=== PATIENT | male | born 1975 | race Two or more races ===

== ENCOUNTER 2021-07-05 10:17 | Outpatient (REF) | payer OTHER, SELFPAY ==
--- NOTE | ~2021-07-05 | XR_ITS ---
EXAMINATION: XR ABDOMEN KUB CLINICAL INDICATION: Unspecified abdominal pain. COMPARISON: CT scan of the abdomen and pelvis dated 03/19/2015. TECHNIQUE: AP view of the abdomen. FINDINGS: There is a nonobstructive bowel gas pattern. Mild gas and stool are seen within the colon distally to the rectum. No abnormal calcifications are seen. Surgical clips overlie the right upper quadrant. The osseous structures are unremarkable. XR/XR KUB IMPRESSION: Nonobstructive bowel gas pattern. Mild colonic stool burden.
--- NOTE | ~2021-07-05 | XR_ITS ---
EXAMINATION: XR CHEST CLINICAL INFORMATION: Cough. COMPARISON: None TECHNIQUE: 2 views of the chest were obtained. FINDINGS: No significant abnormality is noted involving the heart, lungs, mediastinum, bony thorax or soft tissues. XR/XR chest 2V IMPRESSION: No acute cardiopulmonary process.
[2021-07-05 11:15] LABS: Hematocrit 43.1 % (42.0-52.0); Hemoglobin 14.7 g/dl (14.0-18.0); Mean Corpuscular HGB Conc 34.1 g/dl (31.0-36.0); Mean Corpuscular Hemoglobin 29.3 pg (27.0-33.0); Mean Platelet Volume 10.8 fL (9.4-12.4); Platelet Count 227 X10*3/uL (160-400); Red Blood Count 5.01 X10*6/uL (4.60-5.80); Red Cell Distribution Width 12.6 % (11.0-16.0); White Blood Count 5.8 X10*3/uL (4.8-10.8)
[2021-07-05 11:50] LABS: Anion Gap 10 (12-20); Blood Urea Nitrogen 15 mg/dL (9-16); Calcium 9.7 mg/dL (8.4-10.2); Carbon Dioxide 30 mmol/L (22-29); Chloride 103 mmol/L (96-108); Estimated Glomerular Filt Rate > 60; Glucose Random 196 mg/dL (60-115); Potassium 4.2 mmol/L (3.3-5.1); Sodium 139 mmol/L (135-145)
[2021-07-05 13:08] LABS: Appearance Urine CLEAR; Color Urine YELLOW; Glucose Urine UA NEG (NEG); Leukocyte Esterase Urine NEG (NEG); Nitrite Urine NEG (NEG); Urine Blood NEG (NEG); Urine Ketones NEG (NEG); Urine Protein NEG (NEG-TRACE)
== END 2021-07-05 10:18 | disposition home or self-care (01) ==
LOC: HO.HMGCX 10:17
PROVIDERS: PCP Internal Medicine; Visit Provider Physician Assistant
DX: R10.9 Unspecified abdominal pain (principal); R05.9 Cough, unspecified; M79.10 Myalgia, unspecified site; R30.0 Dysuria
CPT/HCPCS: 36415; 71046; 74018; 80048; 81003; 82550; 85027

== ENCOUNTER 2022-03-03 04:37 | Emergency (ER) | payer OTHER, SELFPAY ==
--- NOTE | 2022-03-03 | ECG_ITS ---
Test Reason : chest /back pain Blood Pressure : / mmHG Vent. Rate : 064 BPM Atrial Rate : 064 BPM P-R Int : 162 ms QRS Dur : 078 ms QT Int : 410 ms P-R-T Axes : 040 035 217 degrees QTc Int : 422 ms Normal sinus rhythm ST & Marked T wave abnormality, consider anterolateral ischemia Abnormal ECG When compared with ECG of 27-FEB-2011 13:30, Vent. rate has decreased BY [address] now depressed in Anterior leads T wave inversion now evident in Inferior leads T wave inversion now evident in Anterolateral leads Referred By: Generic ED Physician Electronically Signed By:ORSEANNE SUN
--- NOTE | ~2022-03-03 | CT_ITS ---
EXAMINATION: CT ABDOMEN AND PELVIS WITH CONTRAST CLINICAL INFORMATION: Left flank pain COMPARISON: 03/19/2015 TECHNIQUE: Multidetector volumetric images were obtained from the superior aspect of the liver through the pubic symphysis following administration 85 mL of Omnipaque 350 intravenous contrast. Sagittal and coronal reformatted images were obtained on the technologist's workstation. Oral contrast: No This CT examination was performed using dose optimization techniques as appropriate, variously including the following: *Automated exposure control *Adjustment of mA and/or kV according to patient size (this includes techniques or standardized protocols for targeted exams where dose is matched to indication/reason for exam; i.e. extremities or head) *Use of iterative reconstruction technique DLP: 756 mGy-cm FINDINGS: LUNG BASES: The visualized lung bases are unremarkable. LIVER, GALLBLADDER, AND BILIARY TREE: The liver is normal in size, shape, and attenuation. No focal hepatic lesion or biliary ductal dilatation is present. Cholecystectomy. PANCREAS: Unremarkable. SPLEEN: Unremarkable. ADRENAL GLANDS: Unremarkable. KIDNEYS AND URETERS: The kidneys are normal in size, shape, and attenuation. No hydronephrosis, hydroureter, or calculi seen. No perinephric stranding. BLADDER: Unremarkable. GASTROINTESTINAL TRACT: The stomach is unremarkable. Normal caliber of the small bowel. No obstruction. Normal appendix. No colonic wall thickening or acute inflammation. Scattered diverticulosis without diverticulitis. No free air or free fluid. ABDOMINAL WALL: No significant hernia is appreciated. LYMPH NODES: Normal. VASCULAR: Unremarkable. PELVIC VISCERA: The prostate and seminal vesicles are unremarkable. OSSEOUS STRUCTURES: No acute or suspicious osseous abnormality. CT/CT abdomen pelvis w IV con IMPRESSION: No acute findings in the abdomen or pelvis. No hydronephrosis or nephrolithiasis. No inflammatory changes. Fleischner guidelines were followed.
--- NOTE | ~2022-03-03 | XR_ITS ---
EXAMINATION: XR CHEST CLINICAL INFORMATION: Chest pain COMPARISON: 07/05/2021 TECHNIQUE: Frontal view of the chest was obtained. FINDINGS: The lungs are well expanded. There is no focal consolidation, edema, or effusion. No pneumothorax. The cardiomediastinal silhouette is within normal limits. No acute osseous abnormality. XR/XR chest 1V IMPRESSION: Clear lungs.
[2022-03-03 04:50] VITALS: BP 133/79; PULSE 58; RESP 16; TEMP 36.3; O2SAT 97; BMI 33.8
[2022-03-03 05:13] LABS: Basophils Absolute Auto 0.1 X10*3/uL (0.0-0.2); Basophils Percent Auto 1.1 % (0-2); Eosinophils Absolute Auto 0.2 X10*3/uL (0.0-0.4); Eosinophils Percent Auto 2.3 % (0-4); Hematocrit 44.9 % (42.0-52.0); Hemoglobin 15.3 g/dl (14.0-18.0); Imm Gran Abs Auto 0.02 X10*3/uL (0.00-0.03); Imm Gran Pct Auto 0.3 % (0.0-0.4); Lymphocytes Absolute Auto 3.1 X10*3/uL (1.2-4.9); Lymphocytes Percent Auto 38.6 % (20-40); MANUAL DIFF FLAG NO; Mean Corpuscular HGB Conc 34.1 g/dl (31.0-36.0); Mean Corpuscular Hemoglobin 29.1 pg (27.0-33.0); Mean Corpuscular Volume 85.4 fL (80.0-98.0); Mean Platelet Volume 10.1 fL (9.4-12.4); Monocytes Absolute Auto 0.6 X10*3/uL (0.1-1.2); Monocytes Percent Auto 7.6 % (2-11); Neutrophils Percent Auto 50.1 % (45-73); Platelet Count 225 X10*3/uL (160-400); Red Blood Count 5.26 X10*6/uL (4.60-5.80); Red Cell Distribution Width 12.5 % (11.0-16.0); White Blood Count 7.9 X10*3/uL (4.8-10.8)
--- NOTE | 2022-03-03 05:13 | ED.CHESTPAIN ---
HPI - Chest Pain General Chief Complaint: Chest Pain Stated Complaint: pain in side abd Time Seen by Provider: 03/03/22 04:59 Source: patient Limitations: no limitations History of Present Illness HPI narrative: This is a 46-year-old male who complains of pain around his left flank and left side of his abdomen for several days, worse in the last day. Patient denies any chest pain per se. He denies any nausea, vomiting, sweats, shortness of breath. He has not noted any dysuria or urinary frequency or hematuria. He denies any history of hypertension. He was told he was prediabetic. He is not a smoker. His cholesterol has not been elevated that he knows of. He states he has never had a prior EKG. He does have a history of gastritis and duodenitis Related Data Previous Rx's Medication Instructions Recorded baclofen 10 mg tablet 10 mg PO BEDTIME 10 days #10 tabs 07/05/21 Allergies Allergy/AdvReac Type Severity Reaction Status Date / Time acetaminophen [Percocet] Allergy Unknown hard to Verified 07/05/21 10:06 breath oxycodone [From PERCOCET] Allergy Unknown UNKNOWN Verified 07/05/21 10:06 From PERCOCET AdvReac Unknown ANXIOUS, Uncoded 07/05/21 10:06 DID NOT FEEL GOOD Review of Systems Review of Systems: Yes all other systems are reviewed and are negative Constitutional: Constitutional: Reports as per HPI and Denies fever(s) Eyes: Eyes: Reports as per HPI and Reports no additional eye complaints ENT: Reports system reviewed and no additional complaints, except as documented, Reports as per HPI, Denies nasal congestion, Denies nasal discharge and Denies sore throat Cardiovascular: Cardiovascular: Reports as per HPI, Denies chest pain and Denies dyspnea Respiratory: Respiratory: Reports as per HPI, Denies cough and Denies dyspnea Gastrointestinal: Gastrointestinal: Reports as per HPI, Denies abdominal pain, Denies diarrhea and Denies vomiting Genitourinary: Genitourinary: Reports as per HPI, Denies hematuria, Denies dysuria and Denies urinary frequency Musculoskeletal: Musculoskeletal: Reports no additional musculoskeletal complaints, Reports back pain and Denies numbness Integumentary/Breasts: Skin/Breast: Reports as per HPI and Denies rash Neurologic: Reports as per HPI, Denies focal weakness and Denies numbness Psychiatric: Psychiatric: Reports no additional psychiatric complaints and Reports as per HPI Endocrine: Endocrine: Reports no additional endocrine complaints and Reports as per HPI Hematologic/Lymphatic: Hematologic/Lymphatic: Reports no additional hematologic/lymphatic complaints, Reports as per HPI and Reports other (No peripheral edema) [facility] Social History Social History Advance Directives: No Advance Directives Information Provided: Yes Physical Exam Vital Signs: Vital Signs: Last Vital Signs Temp 97.4 F 03/03/22 04:50 Pulse 65 03/03/22 06:04 Resp 16 03/03/22 06:04 BP 136/72 03/03/22 06:04 Pulse Ox 97 03/03/22 06:04 O2 Del Method 03/03/22 06:04 BMI result Body Mass Index 33.8 Const: Other: patient not ill appearing, does not appear to be in discomfort. Patient readily turns on his side and demonstrate with his hand where the pain is in his left flank. PERRLA Conj [place] Mucous membranes moist Throat clear Neck supple Lungs CTA Heart RRR no murmurs rubs or gallops Abd soft, non tender, non distended Extremities no pitting edema Neuro alert and oriented x 3, non focal MDM - Chest Pain MDM Narrative Medical decision making narrative: Patient with left flank pain for several days. Patient denies chest pain per se. EKG did show T-wave inversions. Troponin was negative. Chest x-ray unremarkable. CT scan of the abdomen and pelvis with IV contrast showed no concerning findings. Urinalysis was negative. Patient does not appear ill or uncomfortable. The patient may have musculoskeletal pain. Patient has no prior EKG. EKG showed diffuse T-wave inversions, which are likely from acute ischemia given the patient's pain pattern. Recommend cardiology follow-up Lab Data Attestation: I reviewed the patient's lab results. Result diagrams: 03/03/22 05:08 03/03/22 05:08 Labs: Lab Results 03/03/22 03/03/22 03/03/22 Range/Units 05:08 05:08 05:08 WBC 7.9 (4.8-10.8) X10*3/uL RBC 5.26 (4.60-5.80) X10*6/uL Hgb 15.3 (14.0-18.0) g/dl Hct 44.9 (42.0-52.0) % MCV 85.4 (80.0-98.0) fL MCH 29.1 (27.0-33.0) pg MCHC 34.1 (31.0-36.0) g/dl RDW 12.5 (11.0-16.0) % Plt Count 225 (160-400) X10*3/uL MPV 10.1 (9.4-12.4) fL Immature Gran % (Auto) 0.3 (0.0-0.4) % Neut % (Auto) 50.1 (45-73) % Lymph % (Auto) 38.6 (20-40) % [place] % (Auto) 7.6 (2-11) % Eos % (Auto) 2.3 (0-4) % Baso % (Auto) 1.1 (0-2) % Lymph # (Auto) 3.1 (1.2-4.9) X10*3/uL [place] # (Auto) 0.6 (0.1-1.2) X10*3/uL Eos # (Auto) 0.2 (0.0-0.4) X10*3/uL Baso # (Auto) 0.1 (0.0-0.2) X10*3/uL Abs Immat Gran (auto) 0.02 (0.00-0.03) X10*3/uL Absolute Neuts (auto) 4.0 (2.0-8.3) x10*3/uL Absolute Nucleated RBC 0.000 (0.0-0.012) X10*3/uL Nucleated RBC % (auto) 0.0 (0.0-0.2) /100WBC Sodium 141 (135-145) mmol/L Potassium 4.3 (3.3-5.1) mmol/L Chloride 103 (96-108) mmol/L Carbon Dioxide 28 (22-29) mmol/L Anion Gap 14 (12-20) BUN 10 (9-16) mg/dL Creatinine 1.14 (0.5-1.4) mg/dL Estim Creat Clear Calc 89.3 Estimated GFR > 60 Random Glucose 125 H D (60-115) mg/dL Calcium 10.0 (8.4-10.2) mg/dL Total Bilirubin 0.8 (0.0-1.0) mg/dL AST 24 (5-37) U/L ALT 45 H (0-40) U/L Alkaline Phosphatase 75 (39-117) U/L Troponin I High Sens 10.0 (<3.5-35.0) ng/L Total Protein 7.5 (6.5-8.0) g/dL Albumin 4.4 (3.5-5.0) g/dL Urine Color Urine Appearance Urine pH (5.0-9.0) Ur Specific [place] (1.005-1.025) Urine Protein (Neg-Trace) mg/dL Urine Glucose (UA) (Negative) mg/dL Urine Ketones (Negative) mg/dL Urine Blood (Negative) Urine Nitrite (Negative) Ur Leukocyte Esterase (Negative) 03/03/22 Range/Units 06:26 WBC (4.8-10.8) X10*3/uL RBC (4.60-5.80) X10*6/uL Hgb (14.0-18.0) g/dl Hct (42.0-52.0) % MCV (80.0-98.0) fL MCH (27.0-33.0) pg MCHC (31.0-36.0) g/dl RDW (11.0-16.0) % Plt Count (160-400) X10*3/uL MPV (9.4-12.4) fL Immature Gran % (Auto) (0.0-0.4) % Neut % (Auto) (45-73) % Lymph % (Auto) (20-40) % [place] % (Auto) (2-11) % Eos % (Auto) (0-4) % Baso % (Auto) (0-2) % Lymph # (Auto) (1.2-4.9) X10*3/uL [place] # (Auto) (0.1-1.2) X10*3/uL Eos # (Auto) (0.0-0.4) X10*3/uL Baso # (Auto) (0.0-0.2) X10*3/uL Abs Immat Gran (auto) (0.00-0.03) X10*3/uL Absolute Neuts (auto) (2.0-8.3) x10*3/uL Absolute Nucleated RBC (0.0-0.012) X10*3/uL Nucleated RBC % (auto) (0.0-0.2) /100WBC Sodium (135-145) mmol/L Potassium (3.3-5.1) mmol/L Chloride (96-108) mmol/L Carbon Dioxide (22-29) mmol/L Anion Gap (12-20) BUN (9-16) mg/dL Creatinine (0.5-1.4) mg/dL Estim Creat Clear Calc Estimated GFR Random Glucose (60-115) mg/dL Calcium (8.4-10.2) mg/dL Total Bilirubin (0.0-1.0) mg/dL AST (5-37) U/L ALT (0-40) U/L Alkaline Phosphatase (39-117) U/L Troponin I High Sens (<3.5-35.0) ng/L Total Protein (6.5-8.0) g/dL Albumin (3.5-5.0) g/dL Urine Color Yellow Urine Appearance Clear Urine pH 5.5 (5.0-9.0) Ur Specific [place] >= 1.030 H (1.005-1.025) Urine Protein Negative (Neg-Trace) mg/dL Urine Glucose (UA) Negative (Negative) mg/dL Urine Ketones Negative (Negative) mg/dL Urine Blood Negative (Negative) Urine Nitrite Negative (Negative) Ur Leukocyte Esterase Negative (Negative) Imaging Data Chest x-ray: Radiologist's impression: FINDINGS: The lungs are well expanded. There is no focal consolidation, edema, or effusion. No pneumothorax. The cardiomediastinal silhouette is within normal limits. No acute osseous abnormality. CT abdomen and pelvis with IV contrast: Radiologist's impression: IMPRESSION: No acute findings in the abdomen or pelvis. No hydronephrosis or nephrolithiasis. No inflammatory changes.? ECG Data ECG #1: Attestation: I personally reviewed and interpreted this ECG as follows: ECG interpretation date: 03/03/22 ECG interpretation time: 04:52 Prior ECG tracings: not available for review Interpretation: Sinus rhythm with a rate of 64. Slight ST elevation in lead V1 and V2. Deeply inverted T-waves in leads V3 through V6 as well as an the limb leads. Discharge Plan Discharge Clinical Impression: Left flank pain, Abnormal ECG Patient Disposition: Home, Self-Care Instructions: Flank Pain (ED) Additional Instructions: Follow-up with cardiology regarding your abnormal EKG. Use ibuprofen for pain. Return for any new or worsened symptoms Prescriptions: No Action baclofen 10 mg tablet 10 mg PO BEDTIME 10 Days Qty: 10 0RF Referrals: José Antonio Bajwa MD [Physician] - 10 days
[2022-03-03 05:29] LABS: Alanine Aminotransferase 45 U/L (0-40); Albumin Level 4.4 g/dL (3.5-5.0); Alkaline Phosphatase 75 U/L (39-117); Anion Gap 14 (12-20); Aspartate Amino Transferase 24 U/L (5-37); Bilirubin Total 0.8 mg/dL (0.0-1.0); Blood Urea Nitrogen 10 mg/dL (9-16); Carbon Dioxide 28 mmol/L (22-29); Chloride 103 mmol/L (96-108); Creatinine Clr Calc Pharmacy 89.3; Estimated Glomerular Filt Rate > 60; Glucose Random 125 mg/dL (60-115); Potassium 4.3 mmol/L (3.3-5.1); Sodium 141 mmol/L (135-145); Total Protein 7.5 g/dL (6.5-8.0)
[2022-03-03] MEDS: iohexoL 350 MG/ML 100 ML INFUS..BTL 85 ML IV (05:52)
[2022-03-03 06:04] VITALS: BP 136/72; PULSE 65; RESP 16; O2SAT 97
[2022-03-03 06:32] LABS: Appearance Urine Clear; Color Urine Yellow; Glucose Urine UA Negative (Negative); Leukocyte Esterase Urine Negative (Negative); Nitrite Urine Negative (Negative); PH 5.5 (5.0-9.0); Specific Gravity - Urine >= 1.030 (1.005-1.025); Urine Blood Negative (Negative); Urine Ketones Negative (Negative); Urine Protein Negative (Neg-Trace)
[2022-03-03] MEDS: Ketorolac Tromethamine 15 MG/ML VIAL IVPUSH (06:33)
== END 2022-03-03 07:11 | disposition home or self-care (01) ==
PROVIDERS: Emergency Provider Emergency Medicine
DX: R10.9 Unspecified abdominal pain (principal); R07.89 Other chest pain; R94.31 Abnormal electrocardiogram [ECG] [EKG]; Z79.899 Other long term (current) drug therapy
CPT/HCPCS: 36415; 71045; 74177; 80053; 81003; 84484; 85025; 93005; 96374; 99284; J1885; Q9967

== ENCOUNTER 2022-03-07 17:12 | Emergency (ER) | payer OTHER, SELFPAY ==
--- NOTE | 2022-03-07 17:19 | ECG_ITS ---
Test Reason : CX PAIN Blood Pressure : / mmHG Vent. Rate : 088 BPM Atrial Rate : 088 BPM P-R Int : 162 ms QRS Dur : 080 ms QT Int : 324 ms P-R-T Axes : 060 003 122 degrees QTc Int : 392 ms Normal sinus rhythm ST & T wave abnormality, consider lateral ischemia Abnormal ECG When compared with ECG of 03-MAR-2022 04:50, T wave inversion no longer evident in Inferior leads T wave inversion less evident in Anterior leads Referred By: Generic ED Physician Electronically Signed By:ROSEANNE SUN
[2022-03-07 17:50] VITALS: BP 143/70; PULSE 90; RESP 18; TEMP 36.2; O2SAT 95; BMI 33.8
[2022-03-07 17:53] LABS: Basophils Absolute Auto 0.1 X10*3/uL (0.0-0.2); Basophils Percent Auto 0.9 % (0-2); Eosinophils Absolute Auto 0.1 X10*3/uL (0.0-0.4); Eosinophils Percent Auto 1.5 % (0-4); Hematocrit 42.6 % (42.0-52.0); Hemoglobin 14.8 g/dl (14.0-18.0); Imm Gran Abs Auto 0.02 X10*3/uL (0.00-0.03); Imm Gran Pct Auto 0.3 % (0.0-0.4); Lymphocytes Percent Auto 30.3 % (20-40); MANUAL DIFF FLAG NO; Mean Corpuscular HGB Conc 34.7 g/dl (31.0-36.0); Mean Corpuscular Hemoglobin 29.5 pg (27.0-33.0); Mean Platelet Volume 10.3 fL (9.4-12.4); Monocytes Absolute Auto 0.4 X10*3/uL (0.1-1.2); Monocytes Percent Auto 6.5 % (2-11); Neutrophils Absolute Auto 4.1 x10*3/uL (2.0-8.3); Neutrophils Percent Auto 60.5 % (45-73); Platelet Count 219 X10*3/uL (160-400); Red Blood Count 5.01 X10*6/uL (4.60-5.80); Red Cell Distribution Width 12.5 % (11.0-16.0); White Blood Count 6.7 X10*3/uL (4.8-10.8)
[2022-03-07 17:59] LABS: Prothrombin Time 11.6 SEC (10.0-13.1)
[2022-03-07 18:15] LABS: Alanine Aminotransferase 56 U/L (0-40); Albumin Level 4.7 g/dL (3.5-5.0); Alkaline Phosphatase 80 U/L (39-117); Anion Gap 14 (12-20); Aspartate Amino Transferase 34 U/L (5-37); Bilirubin Total 0.7 mg/dL (0.0-1.0); Blood Urea Nitrogen 15 mg/dL (9-16); Calcium 9.7 mg/dL (8.4-10.2); Carbon Dioxide 25 mmol/L (22-29); Chloride 104 mmol/L (96-108); Creatinine Clr Calc Pharmacy 80.1; Estimated Glomerular Filt Rate > 60; Glucose Random 152 mg/dL (60-115); Potassium 4.2 mmol/L (3.3-5.1); Sodium 139 mmol/L (135-145); Total Protein 7.6 g/dL (6.5-8.0)
[2022-03-07 18:21] LABS: Troponin-I High Sensitivity 8.4 ng/L (<3.5-35.0)
== END 2022-03-08 02:21 | disposition left against medical advice (07) ==
PROVIDERS: Student in an Organized Health Care Education/Training Program; Emergency Provider Emergency Medicine; PCP Internal Medicine
DX: R07.9 Chest pain, unspecified (principal)
CPT/HCPCS: 36415; 80053; 84484; 85025; 85610; 93005; 99281; 99283

== ENCOUNTER → 2022-03-09 08:18 | Outpatient (BNVA) | payer OTHER, SELFPAY | PROVIDERS: PCP Internal Medicine; Visit Provider Internal Medicine | DX: R94.31 Abnormal electrocardiogram [ECG] [EKG] (principal); R07.89 Other chest pain | CPT/HCPCS: 99202 ==

== ENCOUNTER → 2022-04-02 08:11 | Outpatient (REF) | payer OTHER, SELFPAY ==
--- NOTE | ~2022-04-02 | NM_ITS ---
Exercise Myocardial perfusion study Indication: Abnormal EKG to evaluate for myocardial ischemia Technique: The patient was brought in for an exercise perfusion study on 04/02/2022. Patient performed exercise as per Jian protocol and was injected 30 mCi of sestamibi was given intravenously one target HR was achieved. Images were obtained using the SPECT gamma camera interlaced with the gating device. Images were obtained in supine position. Resting perfusion study was performed on 04/03/2022. Patient was administered 30 mCi of sestamibi intravenously at rest. Images were then obtained in supine position. Images obtained with and without CT attenuation. Total DLP 108 mGy-cm. Images were processed with the software and compared side to side in short axis, horizontal long axis and vertical long axis views. Findings: The stress perfusion study showed non attenuated images show thinning and minimally reduced uptake in the lateral and inferolateral as well as basal inferior wall of the LV myocardium. Remainder of the LV myocardium is normally perfused. Attenuation corrected images show normal uptake of radiotracer in all segments of LV myocardium.. The gated study shows normal LV systolic function with calculated LVEF of 63%. LV cavity is normal in size. The gated study shows normal systolic wall thickening and contraction of all segments. There is no transient ischemic dilation. Resting study shows non attenuated images show mildly reduced uptake in the basal inferolateral as well as basal lateral as well as basal inferior wall of the LV myocardium. There is thinning of the basal anterior and mid anterior wall of the LV myocardium. Attenuation corrected images show normal uptake of radiotracer in all segments of LV myocardium. Gating at rest reveals normal systolic wall motion with ejection fraction at 55%. The findings are consistent with likely normal myocardial perfusion. NM/NM carrington perf SPECT rest & str Impression: 1. Normal myocardial perfusion 2. Gated LVEF is 63% 3. Transient ischemic dilatation not present Stress EKG is nondiagnostic for ischemia due to baseline EKG abnormality
--- NOTE | 2022-04-02 08:14 | CA_ITS ---
Acquisition Time: 2022-04-02 08:57:04 Total Exercise Time: 00:09:00 Test Indications: ABN EKG Medications: SEE CHART Protocol: JERAD Max HR: 150 BPM 86% of Pred: 173 BPM Max BP: 192/082 mmHG Max Work Load: 10.2 METS Exercise stress test with exerecise 9 min of Jerad protocol, achieving 86% MPHR, 10.1 METs, with fatigue and need to stop, without anginal symptoms, without arrythmia, with hypertensive response to exercise with max BP 192/82, with nondiagnostic EKG for ischemia due to baseline abnormality. Nuclear images pending. Test reviewed with Dr Stroud. Referred By: José Antonio Bajwa Overread By: NEVILLE RIVERS
--- NOTE | 2022-04-02 08:14 | CA_ITS ---
Transthoracic Echocardiogram Patient (Last, First, Middle): Madhav Bear, Gender: Male Date of : 1975 Age: 46 Procedure Date: 04/02/2022 Procedure Type: Transthoracic Echocardiogram Location: OP Height: 170.18 cm Weight: 97.52 kg BSA: 2.09 m2 Heart Rate: 67 bpm BP: 124 / 70 mmHg President [place]: SB Referring MD: José Antonio Bajwa MD Symptoms: R94.31 - Abnormal electrocardiogram [ECG] [EKG] Study Quality: Adequate ECG Rhythm: Sinus Conclusions: - The left ventricular systolic function is normal. The calculated ejection fraction is 64% by biplane method. - At least moderate asymmetric septal hypertrophy. - The mid inferolateral segment is hypokinetic. - There is mildly decreased right ventricular systolic function. - No obvious valvular pathology seen on this study. Findings Left Ventricle Normal left ventricular cavity size. The left ventricular systolic function is normal. The calculated ejection fraction is 64% by biplane method. E/E prime ratio is >15, consistent with elevated filling pressures. Evidence suggests grade II (moderate) diastolic dysfunction. At least moderate asymmetric septal hypertrophy. Wall Motion Rest Echo Findings The mid inferolateral segment is hypokinetic. Right Ventricle Normal right ventricular cavity size. There is mildly decreased right ventricular systolic function. Atria Both atria are normal in size. Aortic Valve There is a normal trileaflet aortic valve. There is no aortic valve stenosis. There is no aortic valve regurgitation. Mitral Valve The mitral valve appears normal. There is no mitral valve regurgitation. There is no mitral valve stenosis. Pulmonic Valve The pulmonic valve is likely normal. Tricuspid Valve Normal tricuspid valve structure. There is trace tricuspid valve regurgitation. There is no evidence of pulmonary hypertension. Great Vessels The aortic annulus and asc aorta are normal in size. Venous The inferior vena cava is normal in size and collapses greater than 50% with inspiration. Pericardium/Pleural There is no evidence of pericardial effusion. Prior Study Comparison No prior study available for comparison. Recommendations, Care & Conclusions No obvious valvular pathology seen on this study. Measurements 2D Linear Measurements IVSd: 1.56 0.6-0.9/0.6-1.0 cm LVIDd: 4.26 3.9-5.3/4.2-5.9 cm LVIDd Index: 2.04 2.4-3.2/2.2-3.1 cm/m2 LVIDs: 2.99 2.0-3.6 cm LVPWd: 0.92 0.7-1.1 cm LA Diam: 3.60 2.7-3.8/3.0-4.0 cm LAIDs Index: 1.72 1.5-2.3 cm/m2 LV Mass: 237.60 67-162/88-224 g LV Mass Index: 113.69 43-95/49-115 g/m2 LVOT Diam: 2.10 3.0+(-)1.3 cm 2D Systolic Function EF 4C: 65.00 >55% EF 2C: 57.90 >55% EF BiP: 63.50 >55% Mitral Valve MV Pk E: 1.19 MV PK A: 0.60 MV Decel Time: 181.00 E/A: 2.00 E'Lateral: 9.79 E'Medial: 5.77 E/E' Med: 20.60 E/E' Lat: 12.20 PHT: 53.00 MVA PHT: 4.15 Decel [place]: 6.58 Aortic Valve AoV Pk [place]: 1.51 AoV Mn [place]: 1.00 AoV VTI: 0.28 AoV Pk Grad: 9.00 Aov Mn Grad: 5.00 PAMELLA Cont.VTI: 2.92 LVOT LVOT Pk [place]: 1.27 LVOT Mn [place]: 0.83 LVOT VTI: 0.24 LVOT Pk Grad: 6.00 LVOT Mn Grad: 4.00 LVOT Diam: 2.10 LVOT Area: 3.46 Diastolic Function MV Pk E: 1.19 MV Pk A: 0.60 E/A: 2.00 E'Medial: 5.77 E/E' Med: 20.60 E' Laterial: 9.79 E/E' Lat: 12.20 Right Ventricle TAPSE (mm): 14.10 TVS' [place]: 8.60 Tricuspid Valve TR Pk [place]: 2.04 TR Pk Grad: 17.00 RA Press: 3.00 RVSP: 20.00 Great Vessels Aorta Sinus of Valsalva: 3.10 2.0-3.5 cm Ao Asc: 3.10 2.1-3.4 cm Pulmonary Veins Pulm Vein S/D 0.90 Pulmonary Valve PV Pk [place]: 0.99 Peak PV Grad: 4.00 Updated in Other Vendor System with Status of Final José Antonio Bajwa MD electronically signed on 04/02/2022 11:48:38 AM with status of Final
== END ==
LOC: HO.CARD 08:11
PROVIDERS: PCP Internal Medicine; Visit Provider Internal Medicine
DX: R94.31 Abnormal electrocardiogram [ECG] [EKG] (principal)
CPT/HCPCS: 78452; 93017; 93306; A9500

== ENCOUNTER → 2022-04-10 09:59 | Outpatient (BNVA) | payer OTHER, SELFPAY | PROVIDERS: PCP Internal Medicine; Visit Provider Nurse Practitioner Family | DX: R51.9 Headache, unspecified (principal); M54.2 Cervicalgia; G47.33 Obstructive sleep apnea (adult) (pediatric) | CPT/HCPCS: 99202 ==

== ENCOUNTER → 2022-04-23 14:13 | Outpatient (BNVA) | payer OTHER, SELFPAY | PROVIDERS: PCP Internal Medicine; Referring Provider Internal Medicine; Visit Provider Nurse Practitioner Family | DX: R94.31 Abnormal electrocardiogram [ECG] [EKG] (principal); G47.33 Obstructive sleep apnea (adult) (pediatric); I42.2 Other hypertrophic cardiomyopathy | CPT/HCPCS: 99212 ==

== ENCOUNTER 2022-05-16 06:48 | Emergency (ER) | payer OTHER, SELFPAY ==
--- NOTE | ~2022-05-16 | XR_ITS ---
EXAMINATION: XR CHEST CLINICAL INFORMATION: Cough COMPARISON: March 03, 2022 TECHNIQUE: 2 views of the chest were obtained. FINDINGS: No significant abnormality is noted involving the heart, lungs, mediastinum, bony thorax or soft tissues. XR/XR chest 2V IMPRESSION: No acute disease.
[2022-05-16 07:02] VITALS: BP 160/100; PULSE 75; O2SAT 99
--- NOTE | 2022-05-16 07:05 | ECG_ITS ---
Test Reason : SOB Blood Pressure : / mmHG Vent. Rate : 068 BPM Atrial Rate : 068 BPM P-R Int : 158 ms QRS Dur : 080 ms QT Int : 390 ms P-R-T Axes : 063 019 189 degrees QTc Int : 414 ms Normal sinus rhythm ST & Marked T wave abnormality, consider anterolateral ischemia Abnormal ECG When compared with ECG of 07-MAR-2022 17:24, Inverted T waves have replaced nonspecific T wave abnormality in Inferior leads T wave inversion more evident in Anterior leads Referred By: Generic ED Physician Electronically Signed By:Jay Stroud
[2022-05-16 07:06] VITALS: BP 144/80; PULSE 77; RESP 18; TEMP 36.1; O2SAT 99; BMI 33.8
--- NOTE | 2022-05-16 07:54 | ED.URI ---
HPI - URI/Sore Throat General Chief Complaint: Upper Respiratory Symptoms Stated Complaint: chest discomfort Time Seen by Provider: 05/16/22 07:17 Source: patient Mode of arrival: ambulatory Limitations: no limitations History of Present Illness HPI Narrative: 47 year old male with no significant past medical history presents emergency department today complaining of upper respiratory symptoms. Has been sick for several days, not worsening or improving. The patient has been taking Mucinex with some relief. Denies any ill contacts. Denies fevers or shaking chills. MD elicited complaint: cough, sore throat, rhinorrhea and nasal congestion Onset (ago): day(s) Consistency: constant Severity: mild Description of mucous: clear Able to tolerate fluids by mouth: Yes Exacerbating factors: nothing Relieving factors: nothing Context: sick contacts Associated symptoms: cough Treatments prior to arrival: cold medicine Related Data Home Medications Medication Instructions Recorded Confirmed omeprazole 20 mg capsule,delayed 20 mg PO DAILY PRN 03/09/22 04/23/22 release Previous Rx's Medication Instructions Recorded magnesium oxide 400 mg (241.3 mg 400 mg PO BEDTIME 30 days #30 tabs 04/10/22 magnesium) tablet Allergies Allergy/AdvReac Type Severity Reaction Status Date / Time acetaminophen [Percocet] Allergy Unknown hard to Verified 04/23/22 14:56 breath oxycodone [From PERCOCET] Allergy Unknown UNKNOWN Verified 04/23/22 14:56 From PERCOCET AdvReac Unknown ANXIOUS, Uncoded 04/10/22 10:07 DID NOT FEEL GOOD Review of Systems Constitutional: Constitutional: Denies chills, Denies fever(s), Reports headache(s) and Reports weakness Eyes: Eyes: Denies blurry vision, Denies diplopia and Denies eye discharge ENT: Reports as per HPI, Denies dizziness, Denies facial pain, Reports headache(s), Denies epistaxis, Reports nasal congestion and Reports sore throat Cardiovascular: Cardiovascular: Denies chest pain, Denies syncope, Denies irregular heart rhythm and Denies palpitations Respiratory: Respiratory: Reports chest congestion, Reports cough and Reports pain with cough Genitourinary: Genitourinary: Reports no additional male genitourinary complaints Musculoskeletal: Musculoskeletal: Reports no additional musculoskeletal complaints Integumentary/Breasts: Skin/Breast: Denies erythema and Denies rash Neurologic: Denies dizziness, Denies syncope, Reports headache(s) and Reports weakness Endocrine: Endocrine: Denies palpitations [facility] Past Medical History Source: nursing notes reviewed Medical History Diabetes Surgical History History of back surgery History of cholecystectomy History of tonsillectomy Family History Family History Mother Brain cancer Father No problems noted. Social History Social History Alcohol intake: never Patient Tobacco Use Status: Never used Tobacco Advance Directives: No Physical Exam Vital Signs: Vital Signs: Last Vital Signs Temp 97.8 F 05/16/22 09:34 Pulse 72 05/16/22 09:34 Resp 14 05/16/22 09:34 BP 116/63 05/16/22 09:34 Pulse Ox 96 05/16/22 09:34 O2 Del Method 05/16/22 09:34 BMI result Body Mass Index 33.8 Vital signs stable in normal Const: General: cooperative and healthy appearing Nutritional Appearance: overweight Orientation/consciousness: patient oriented x3 HEENT: Head: Yes normal to inspection, Yes normocephalic and Yes atraumatic Ears: external ears normal General nose exam: Normal external nose present Face and sinus: Yes normal facial exam Mouth: Normal oral and palatal mucosa present Eyes: Conjunctivae: conjunctivae normal Sclerae: sclerae normal Pupils: Equal, round and reactive pupils present EOM: EOMs intact bilaterally Neck: Neck: Yes normal visual inspection and Yes full ROM Resp: Effort & Inspection: normal respiratory effort and Actively coughing Cardio: Rate: regular rate Rhythm: regular rhythm GI: Inspection: Yes normal to inspection Back/Spine/Pelvis: Cervical Spine: normal cervical lordosis and cervical ROM normal Skin: General skin exam: no rashes or lesions noted and no pallor Neuro: General: patient oriented x3 Cranial nerves: Yes CN's II-XII intact bilaterally and Yes Equal, round and reactive pupils present Cognition (Neuro): normal cognition MDM - URI/Sore Throat MDM Narrative Medical decision making narrative: 47-year-old male presents to the emergency department with vague upper respiratory symptoms. Laboratory studies show a positive COVID as well as RSV. the patient will be discharged home to follow-up with his primary care doctor in the next several days. Lab Data Attestation: I reviewed the patient's lab results. Labs: Lab Results 05/16/22 Range/Units 07:31 Influenza Type A (PCR) NEGATIVE (Negative) Influenza Type B (PCR) NEGATIVE (Negative) RSV RNA Qual (PCR) POSITIVE A (Negative) SARS-CoV-2 RNA (RT-PCR) POSITIVE A (Negative) Discharge Plan Discharge Clinical Impression: Respiratory syncytial virus (RSV) infection, COVID-19 Patient Disposition: Home, Self-Care Additional Instructions: Coronavirus (COVID-19) Discharge Instructions You were diagnosed with the novel Coronavirus, known as COVID-19. It is a viral illness that can cause fever, cough and trouble breathing. Some people may have chills, muscle aches, runny nose, sneezing, sore throat, upset stomach or loose stool. When do I need to call the doctor? Call your doctor if your breathing is getting worse (harder or faster than before or you feel like you are getting less air). Some people start to feel worse in the second week of their illness, if you start to feel worse at any time in your illness, please call your doctor, who will tell you where to go to be seen. If you can, put on a facemask before leaving home or before you enter the clinic or hospital. Get medical attention right away if you develop emergency warning signs of COVID-19 such as: trouble breathing, chest pain or pressure that does not go away, new confusion or not able to wake up, bluish lips or face. Precautions at home The virus is spread easily through tiny droplets when you cough or sneeze. You should take these steps to help prevent the disease from spreading to people in your home and community 1. Self-isolate at home As advised by the Centers for Disease Control and Prevention (CDC), we ask you to stay in your home and limit contact with others to avoid spreading this virus. Stay home except to go to the doctor Do not go to work, school, or public areas, except for getting medical care. Avoid using public transportation (such as buses), ride-sharing, or taxis. If you have an upcoming doctor appointment, call the office and tell them that you have COVID-19. Separate yourself from other people and animals in your home. Avoid touching other people, including handshaking. As much as you can, stay in a specific room and away from other people in your home. You should also use a separate bathroom, if available. Avoid sharing personal household items. You should not share dishes, drinking glasses, cups, eating utensils, towels, toothpaste, or bedding with other people or pets in your home. After using these items, they should be washed well with soap and water. Do not handle pets or other animals while sick. 2. Clean and disinfect Clean all high-touch surfaces every day. High-touch surfaces include counters, tabletops, doorknobs, bathroom fixtures, toilets, phones, keyboards, tablets, and bedside tables. Clean any surfaces that may have blood, stool, or body fluids on them. Use a household cleaning spray or wipe, according to the label instructions. Labels contain instructions for safe and effective use of the cleaning product including precautions you should take when applying the product, such as wearing gloves and making sure you have good air flow in the room during use of the product. Wash laundry. Remove and wash clothes or bedding that have blood, stool, or body fluids on them and then wash your hands right away 3. Help stop the spread Clean your hands often. Wash your hands with soap and water for at least 20 seconds. OR ?Use an alcohol-based hand roll press operator that contains at least 60% alcohol, covering all surfaces of your hands and rubbing them together until they feel dry. Wash your hands after blowing your nose, coughing, or sneezing; going to the bathroom, and before eating or preparing food. Avoid touching your eyes, nose, and mouth with unwashed hands. Cover your coughs and sneezes. Cover your mouth and nose with a tissue when you cough or sneeze. Throw used tissues in a lined trash can; clean your hands right away. Wear a facemask You should wear a facemask when you are around other people (e.g., sharing a room or vehicle) or pets and before you enter a healthcare provider's office. 4. Notify your close contacts Notify people you have been in contact with. They may need to stay home or be tested. When can I stop precautions at home? Your doctor will tell you which criteria to follow below Isolate yourself for at least 5 days, or longer if directed by your doctor. Do not go out of your place of residence. Do not go to work. After 5 days (day 0 is the first day of symptoms or the date of the day of the positive test if you do not have symptoms), if you have no symptoms or your symptoms are improving you can return to your normal activities, but should continue to wear a mask when around others for an additional 5 days. If you are unable to wear a mask when around others, you should isolate for a full 10 days. Stay home longer if directed by your doctor. You may still need to be in isolation for at least 10 days in a healthcare setting, talk to your doctor for more information. If you have either been hospitalized with severe COVID-19 disease or you are immunocompromised (have a decreased ability to fight infection), you may spread the virus for a longer period of time after recovery. Please continue self-isolation for twenty (20) days in such an event. Most people do not require retesting to decide when they can be around others. Manage your stress and anxiety Being ill can be stressful or cause anxiety. Remember that everyone reacts differently to stressful situations. Being ill with COVID-19 might be especially stressful because it is a new disease and there is a lot of news coverage. Take breaks from watching, reading, or listening to news stories, including social media. People with preexisting mental conditions should continue their treatment and be aware of new or worsening symptoms. If you, or someone you care about, are feeling overwhelmed with emotions like sadness, depression, or anxiety, call the Substance Abuse and Mental Health Services Administration's (SAMHSA's) Disaster Distress Helpline: [place] [address]. (TTY ) Coronavirus (COVID-19) Instrucciones de jaquelin Le diagnosticaron el nuevo coronavirus, conocido vishnu COVID-19. Es emiliano enfermedad viral que puede causar fiebre, tos y dificultad para respirar. Algunas personas pueden tener escalofr?os, coleen musculares, secreci?n nasal, estornudos, dolor de garganta, malestar estomacal o heces blandas. ?Cu?ndo fabiana llamar al m?dico? Llame a benson m?dico si benson respiraci?n est? empeorando (m?s emile o m?s r?pido que antes o si siente que est? recibiendo menos aire). Algunas personas comienzan a sentirse peor en la segunda semana de benson enfermedad, si comienza a sentirse peor en cualquier momento de benson enfermedad, llame a benson m?dico, quien le indicar? d?nde acudir para que lo atiendan. Si puede, p?ngase emiliano mascarilla antes de salir de casa o antes de ingresar a la [facility]. Obtenga atenci?n m?dica de inmediato si presenta signos de advertencia de emergencia de COVID-19, vishnu: dificultad para respirar, dolor o presi?n en el pecho que no desaparece, confusi?n nueva o incapacidad para despertarse, labios o jabier azulados. Precauciones en casa El virus se transmite f?cilmente a joana?s de tho?as gotas cuando tose o estornuda. Debe seguir estos pasos para ayudar a prevenir que la enfermedad se propague a las personas en benson hogar y comunidad 1. Autoaislamiento en casa Seg?n lo aconsejado por los Centros para el Control y la Prevenci?n de Enfermedades (CDC), le pedimos que permanezca en benson hogar y limite el contacto con otras personas para evitar la propagaci?n de pedro pablo virus. Qu?dese en casa excepto para ir al m?dico No vaya al trabajo, la escuela o las ?reas p?blicas, excepto para recibir atenci?n m?dica. Evite usar el transporte p?blico (vishnu los autobuses), los viajes compartidos o los taxis. Si tiene emiliano pr?xima shahbaz con el m?dico, llame al consultorio y d?hector que tiene COVID-19. Sep?rese de otras personas y animales en benson hogar. Evite tocar a otras personas, incluido el apret?n de vish. En la medida de lo posible, qu?dese en emiliano habitaci?n espec?fica y lejos de otras personas en benson hogar. Tambi?n debe usar un ba?o separado, si est? disponible. Evite compartir art?culos personales del hogar. No debe compartir platos, vasos, tazas, utensilios para comer, toallas, pasta de dientes o ropa de cama con otras personas o mascotas en benson hogar. Despu?s de usar estos art?culos, deben lavarse gerda con agua y jab?n. No manipule mascotas u otros animales mientras est? enfermo. 2. Limpiar y desinfectar Limpie todas las superficies de alto contacto todos los d?as. Las superficies de alto contacto incluyen mostradores, mesas, pomos de noreen, accesorios de ba?o, inodoros, tel?fonos, teclados, tabletas y mesitas de noche. Limpie cualquier superficie que pueda tener adrianne, heces o fluidos corporales. Use un spray o toallita de limpieza dom?stica, de acuerdo con las instrucciones de la etiqueta. Las etiquetas contienen instrucciones para el uso seguro y efectivo del producto de limpieza, incluidas las precauciones que debe sheyla al aplicar el producto, vishnu usar guantes y asegurarse de que haya un buen flujo de aire en la habitaci?n frantz el uso del producto. Pepito la ropa. Qu?tese y lave la ropa o la ropa de cama que tenga adrianne, heces o fluidos corporales y luego l?vese las vish de inmediato. 3. Ayuda a detener la propagaci?n L?vese las vish con frecuencia. L?vese las vish con agua y jab?n frantz al menos 20 segundos. O ?Use un desinfectante para vish a base de alcohol que contenga al menos un 60% de alcohol, cubra todas las superficies de racheal vish y fr?telas hasta que se sientan secas. L?vese las vish despu?s de sonarse la nariz, toser o estornudar; ir al ba?o, y antes de comer o preparar alimentos. Evite tocarse los ojos, la nariz y la boca con las vish sin pepito. C?brase al toser y estornudar. C?brase la boca y la nariz con un pa?uelo cuando tosa o estornude. Tire los pa?uelos usados ??en un bote de basura forrado; l?vese las vish de inmediato. [place] emiliano mascarilla Debe usar emiliano mascarilla cuando est? cerca de otras personas (p. ej., compartiendo emiliano habitaci?n o un veh?culo) o mascotas y antes de ingresar al consultorio de un proveedor de atenci?n m?dica. 4. Notifica a tus contactos cercanos Notifique a las personas con las que quinn estado en contacto. Es posible que deban quedarse en casa o hacerse la prueba. ?Cu?ndo puedo dejar de sheyla precauciones en casa? Benson m?dico le indicar? qu? criterios seguir a continuaci?n. A?slese frantz al menos 5 d?as o m?s si se lo indica benson m?dico. No salga de benson lugar de residencia. No vayas a trabajar. Despu?s de 5 d?as (el d?a 0 es el primer d?a de s?ntomas o la fecha del d?a de la prueba positiva si no tiene s?ntomas), si no tiene s?ntomas o racheal s?ntomas est?n mejorando, puede volver a racheal actividades normales, senait debe contin?e usando meiliano m?scara cuando est? cerca de otras personas frantz 5 d?as adicionales. Si no puede usar emiliano m?scara cuando est? cerca de otras personas, debe aislarse frantz 10 d?as completos. Qu?dese en casa m?s tiempo si se lo indica benson m?dico. Es posible que a?n deba estar aislado frantz al menos 10 d?as en un entorno de atenci?n m?dica; hable con benson m?dico para obtener m?s informaci?n. Si quinn sido hospitalizado con emiliano enfermedad grave de COVID-19 o si est? inmunocomprometido (tiene emiliano danisha capacidad para combatir infecciones), puede propagar el virus frantz un per?odo de tiempo m?s oz despu?s de la recuperaci?n. Contin?e con el autoaislamiento frantz veinte (20) d?as en kacie holli. La mayor?a de las personas no requieren emiliano nueva prueba para Prescriptions: No Action omeprazole 20 mg capsule,delayed release(DR/EC) 20 mg PO DAILY PRN magnesium oxide 400 mg (241.3 mg magnesium) tablet 400 mg PO BEDTIME 30 Days Qty: 30 6RF Rx Instructions: may hold for loose stools
[2022-05-16 08:15] LABS: Influenza A PCR NEGATIVE (Negative); Influenza B PCR NEGATIVE (Negative); Resp Syncy Virus RNA Qual PCR POSITIVE (Negative); SARS COV2 PCR INHOUSE POSITIVE (Negative)
--- NOTE | 2022-05-16 08:36 | PC.NURSE ---
skin wpd, occasional cough, awaiting xray results, nad
[2022-05-16 09:34] VITALS: BP 116/63; PULSE 72; RESP 14; TEMP 36.6; O2SAT 96
== END 2022-05-16 10:22 | disposition home or self-care (01) ==
PROVIDERS: Emergency Provider Emergency Medicine; PCP Internal Medicine
DX: U07.1 COVID-19 (principal); B97.4 Respiratory syncytial virus as the cause of diseases classified elsewhere
CPT/HCPCS: 0241U; 71046; 93005; 99283; 99284

== ENCOUNTER 2022-06-25 02:37 | Emergency (ER) | payer OTHER, SELFPAY ==
--- NOTE | 2022-06-25 | ECG_ITS ---
Test Reason : chest pain Blood Pressure : / mmHG Vent. Rate : 060 BPM Atrial Rate : 060 BPM P-R Int : 170 ms QRS Dur : 080 ms QT Int : 404 ms P-R-T Axes : 045 015 158 degrees QTc Int : 404 ms Normal sinus rhythm ST & T wave abnormality, consider anterolateral ischemia Abnormal ECG When compared with ECG of 16-MAY-2022 07:06, No significant change was found Referred By: Generic ED Physician Electronically Signed By:Jay Stroud
[2022-06-25 02:38] VITALS: BP 147/89; PULSE 62; RESP 20; TEMP 36.6; O2SAT 100; BMI 32.8
[2022-06-25 03:10] LABS: Basophils Absolute Auto 0.1 X10*3/uL (0.0-0.2); Basophils Percent Auto 0.8 % (0-2); Eosinophils Absolute Auto 0.2 X10*3/uL (0.0-0.4); Eosinophils Percent Auto 1.8 % (0-4); Hematocrit 43.4 % (42.0-52.0); Hemoglobin 14.9 g/dl (14.0-18.0); Imm Gran Abs Auto 0.03 X10*3/uL (0.00-0.03); Imm Gran Pct Auto 0.3 % (0.0-0.4); Lymphocytes Absolute Auto 3.1 X10*3/uL (1.2-4.9); Lymphocytes Percent Auto 35.2 % (20-40); MANUAL DIFF FLAG NO; Mean Corpuscular HGB Conc 34.3 g/dl (31.0-36.0); Mean Corpuscular Hemoglobin 28.9 pg (27.0-33.0); Mean Corpuscular Volume 84.1 fL (80.0-98.0); Mean Platelet Volume 10.4 fL (9.4-12.4); Monocytes Absolute Auto 0.6 X10*3/uL (0.1-1.2); Monocytes Percent Auto 7.2 % (2-11); Neutrophils Absolute Auto 4.8 x10*3/uL (2.0-8.3); Neutrophils Percent Auto 54.7 % (45-73); Platelet Count 206 X10*3/uL (160-400); Red Blood Count 5.16 X10*6/uL (4.60-5.80); Red Cell Distribution Width 12.5 % (11.0-16.0); White Blood Count 8.7 X10*3/uL (4.8-10.8)
[2022-06-25 03:19] VITALS: BP 125/68; PULSE 62; RESP 16; TEMP 36.7; O2SAT 99
--- NOTE | 2022-06-25 03:23 | PC.NURSE ---
Pt is alert and oriented x4. Skin is pink and warm. No signs of resp distress. Pt stated that he has MRI in the morning and feels a little bit anxious. Pt is pleasant, by a bed side.
[2022-06-25 03:28] LABS: Alanine Aminotransferase 51 U/L (0-40); Albumin Level 4.4 g/dL (3.5-5.0); Alkaline Phosphatase 84 U/L (39-117); Anion Gap 13 (12-20); Aspartate Amino Transferase 23 U/L (5-37); Bilirubin Total 0.8 mg/dL (0.0-1.0); Blood Urea Nitrogen 14 mg/dL (9-16); Calcium 9.8 mg/dL (8.4-10.2); Carbon Dioxide 26 mmol/L (22-29); Chloride 103 mmol/L (96-108); Creatinine Clr Calc Pharmacy 95.5; Estimated Glomerular Filt Rate > 60; Glucose Random 134 mg/dL (60-115); Potassium 3.9 mmol/L (3.3-5.1); Sodium 138 mmol/L (135-145); Total Protein 7.3 g/dL (6.5-8.0)
[2022-06-25 03:33] LABS: Troponin-I High Sensitivity 5.2 ng/L (<3.5-35.0)
--- NOTE | 2022-06-25 03:55 | ED_ITS ---
HPI - General Adult General Chief complaint: General Medical Stated complaint: heart pain? has scheduled MRI Time Seen by Provider: 06/25/22 03:45 Source: patient Mode of arrival: ambulatory Limitations: no limitations History of Present Illness HPI narrative: Patient comes emergency room complaining palpitations, feeling anxious. Patient states he has a cardiac MRI tomorrow and he is very anxious about tomorrow. At this time, he has no chest pain or shortness of breath. Related Data Home Medications Medication Instructions Recorded Confirmed omeprazole 20 mg capsule,delayed 20 mg PO DAILY PRN 03/09/22 04/23/22 release Previous Rx's Medication Instructions Recorded magnesium oxide 400 mg (241.3 mg 400 mg PO BEDTIME 30 days #30 tabs 04/10/22 magnesium) tablet Allergies Allergy/AdvReac Type Severity Reaction Status Date / Time acetaminophen [Percocet] Allergy Unknown hard to Verified 06/25/22 02:42 breath oxycodone [From PERCOCET] Allergy Unknown UNKNOWN Verified 06/25/22 02:42 From PERCOCET AdvReac Unknown ANXIOUS, Uncoded 04/10/22 10:07 DID NOT FEEL GOOD Review of Systems Review of Systems: Constitutional : No Weight loss, No Fever, No Chills, No Night Sweats, No Fatigue, No Malaise ENT/Mouth : No Hearing loss, No Ear Pain, No Nasal Congestion, No Sinus Pain, No Hoarseness, No sore throat, No Rhinorrhea, No Swallowing Difficulty Eyes: No Eye Pain, No Swelling, No Redness, No Foreign Body, No Discharge, No Vision Changes Cardiovascular : No Chest Pain, No SOB, No Dyspnea on Exertion, No Orthopnea, No Edema, complaining of intermittent Palpitations Respiratory : No Cough, No Sputum, No Wheezing, No Smoke Exposure, No Dyspnea Gastrointestinal : No Nausea, No Vomiting, No Diarrhea, No Constipation, No abdominal Pain, No Hematochezia, No Melena Genitourinary : no irregular bleeding, No Dysuria, No Urinary Frequency, No Hematuria, No Urinary Incontinence, No Urgency, No Flank Pain, No Urinary Flow Changes, No Hesitancy Musculoskeletal : No joint pain, No Myalgias, No Joint Swelling Skin : No Skin Lesions, No rash Neuro : No Weakness, No Numbness, No Paresthesias, No Loss of Consciousness, No Dizziness, No Headache Psych : Complaining of anxiety, No Depression, No SI/HI/AH/VH, No Social Issues, Heme/Lymph: No Bruising, No Bleeding,No Lymphadenopathy Endocrine : No Polyuria, No Polydipsia, No Temperature Intolerance [facility] Past Medical History Medical History Diabetes Surgical History History of back surgery History of cholecystectomy History of tonsillectomy Family History Family History Mother Brain cancer Father No problems noted. Social History Social History Alcohol intake: never Patient Tobacco Use Status: Never used Tobacco Smoked in Last 30 Days: No Use of substances other than those prescribed or required for medical reasons: No Advance Directives: No Physical Exam ED Vital Signs: Vital Signs - 24 hr 06/25/22 02:38 06/25/22 03:19 Temperature 97.9 F 98.0 F Pulse Rate 62 62 Respiratory Rate 20 16 Blood Pressure 147/89 H 125/68 Pulse Oximetry 100 99 Oxygen Delivery Method Room Air Room Air BMI result Body Mass Index 32.8 Const Other: Appearance: Alert. Oriented X3. No acute distress. Eyes: Pupils equal, round and reactive to light. ENT: Pharynx normal. Neck: Normal inspection. Neck supple. No lymph nodes noted. No crepitus CVS: Normal heart rate and rhythm. Pulses normal. Normal S1 and S2 Respiratory: No respiratory distress. Breath sounds normal. No Wheezing. No rales Abdomen: Soft and nontender. No rigidity. No distention. Skin: Skin warm and dry. Normal skin color. Normal skin turgor. Extremities: No lower extremity edema. No Lacerations. No Rash Neuro: Oriented X 3. No motor deficit. No sensory deficit. Moving all extremities. No slurred speech. CN 2 through 12 grossly intact Psych: calm, cooperative, normal affect Course Course Course Narrative: I discussed the labs with the patient, no acute findings. EKG has no acute sukhdev nges. I discussed with the patient that I would recommend that he calls the cardiology office today, to give him a heads up that he has severe anxiety and is claustrophobic, maybe they can prescribe him if indicated benzos that he can take before his MRI, or have the medication ready prior to the procedure Medical Decision Making Medical Decision Making [facility] Narrative: At this time, patient is asymptomatic. Patient feeling a bit anxious about tomorrow, concerned about the MRI, patient being in an enclosed environment. Differential Diagnosis Differential Diagnoses: The differential diagnosis associated with the presentation includes (Anxiety, ACS, palpitations) Lab Data [facility] Lab Attestation statement: I reviewed the patient's lab results. 06/25/22 03:04 06/25/22 03:04 Labs: Lab Results 06/25/22 06/25/22 06/25/22 Range/Units 03:04 03:04 03:04 WBC 8.7 (4.8-10.8) X10*3/uL RBC 5.16 (4.60-5.80) X10*6/uL Hgb 14.9 (14.0-18.0) g/dl Hct 43.4 (42.0-52.0) % MCV 84.1 (80.0-98.0) fL MCH 28.9 (27.0-33.0) pg MCHC 34.3 (31.0-36.0) g/dl RDW 12.5 (11.0-16.0) % Plt Count 206 (160-400) X10*3/uL MPV 10.4 (9.4-12.4) fL Immature Gran % (Auto) 0.3 (0.0-0.4) % Neut % (Auto) 54.7 (45-73) % Lymph % (Auto) 35.2 (20-40) % [place] % (Auto) 7.2 (2-11) % Eos % (Auto) 1.8 (0-4) % Baso % (Auto) 0.8 (0-2) % Lymph # (Auto) 3.1 (1.2-4.9) X10*3/uL [place] # (Auto) 0.6 (0.1-1.2) X10*3/uL Eos # (Auto) 0.2 (0.0-0.4) X10*3/uL Baso # (Auto) 0.1 (0.0-0.2) X10*3/uL Abs Immat Gran (auto) 0.03 (0.00-0.03) X10*3/uL Absolute Neuts (auto) 4.8 (2.0-8.3) x10*3/uL Absolute Nucleated RBC 0.000 (0.0-0.012) X10*3/uL Nucleated RBC % (auto) 0.0 (0.0-0.2) /100WBC Sodium 138 (135-145) mmol/L Potassium 3.9 (3.3-5.1) mmol/L Chloride 103 (96-108) mmol/L Carbon Dioxide 26 (22-29) mmol/L Anion Gap 13 (12-20) BUN 14 (9-16) mg/dL Creatinine 1.04 (0.5-1.4) mg/dL Estim Creat Clear Calc 95.5 Estimated GFR > 60 Random Glucose 134 H (60-115) mg/dL Calcium 9.8 (8.4-10.2) mg/dL Total Bilirubin 0.8 (0.0-1.0) mg/dL AST 23 (5-37) U/L ALT 51 H (0-40) U/L Alkaline Phosphatase 84 (39-117) U/L Troponin I High Sens 5.2 (<3.5-35.0) ng/L Total Protein 7.3 (6.5-8.0) g/dL Albumin 4.4 (3.5-5.0) g/dL Independent Interpretation I performed an independent interpretation of an: EKG (My interpretation: Normal sinus rhythm, heart rate 68, diffuse T-wave inversions in precordial leads, QTC 414, no acute changes in EKG, T-wave inversions seen since at least 2021) Discharge Plan Discharge Clinical Impression: Palpitations Patient Disposition: Home, Self-Care Instructions: Heart Palpitations (ED) Additional Instructions: Please follow-up with your primary care physician tomorrow. If you have any worsening or new symptoms, please return to the emergency room or call 911 Prescriptions: No Action omeprazole 20 mg capsule,delayed release(DR/EC) 20 mg PO DAILY PRN magnesium oxide 400 mg (241.3 mg magnesium) tablet 400 mg PO BEDTIME 30 Days Qty: 30 6RF Rx Instructions: may hold for loose stools
[2022-06-25 04:02] VITALS: BP 123/74; PULSE 60; RESP 12; TEMP 36.2; O2SAT 95
[2022-06-25 04:14] VITALS: BP 123/74; PULSE 60; RESP 16; TEMP 36.8; O2SAT 97
== END 2022-06-25 04:24 | disposition home or self-care (01) ==
PROVIDERS: Emergency Provider Emergency Medicine; PCP Internal Medicine
DX: R00.2 Palpitations (principal); F41.9 Anxiety disorder, unspecified; E11.9 Type 2 diabetes mellitus without complications; Z79.899 Other long term (current) drug therapy
CPT/HCPCS: 36415; 80053; 84484; 85025; 93005; 99283; 99284

== ENCOUNTER → 2022-07-08 10:51 | Outpatient (BNVA) | payer OTHER, SELFPAY | PROVIDERS: PCP Internal Medicine; Referring Provider Internal Medicine; Visit Provider Internal Medicine | DX: I42.1 Obstructive hypertrophic cardiomyopathy (principal); R94.31 Abnormal electrocardiogram [ECG] [EKG]; R07.89 Other chest pain | CPT/HCPCS: 99212 ==

== ENCOUNTER → 2022-07-16 09:40 | Outpatient (BNVA) | payer OTHER, SELFPAY | PROVIDERS: PCP Internal Medicine; Visit Provider Nurse Practitioner Family | DX: R51.9 Headache, unspecified (principal); M54.2 Cervicalgia; G47.33 Obstructive sleep apnea (adult) (pediatric) | CPT/HCPCS: 99212 ==

== ENCOUNTER → 2022-07-17 14:34 | Outpatient (REF) | payer OTHER, SELFPAY ==
--- NOTE | 2022-07-17 14:36 | HM_ITS ---
* Total monitoring time 3 days. * Underlying rhythm is sinus. Average ventricular rate 73/Min. Range 46 to 154/Min. * Very rare PACs/PVCs. * No significant pauses or AV blocks. * No patient symptoms in diary. MTDD
== END ==
LOC: HO.CARD 14:34
PROVIDERS: PCP Physician Assistant; Visit Provider Internal Medicine
DX: I42.1 Obstructive hypertrophic cardiomyopathy (principal)
CPT/HCPCS: 93242

== ENCOUNTER 2022-09-02 00:32 | Emergency (ER) | payer OTHER, SELFPAY ==
--- NOTE | 2022-09-02 00:37 | ECG_ITS ---
Test Reason : CHEST PAIN Blood Pressure : / mmHG Vent. Rate : 068 BPM Atrial Rate : 068 BPM P-R Int : 168 ms QRS Dur : 082 ms QT Int : 392 ms P-R-T Axes : 047 010 162 degrees QTc Int : 416 ms Normal sinus rhythm ST & T wave abnormality, consider anterolateral ischemia Abnormal ECG When compared with ECG of 25-JUN-2022 02:44, No significant change was found Referred By: Generic ED Physician Electronically Signed By:JOANA PAUL MD
[2022-09-02 00:43] VITALS: BP 154/80; PULSE 70; RESP 18; TEMP 36.4; O2SAT 99; BMI 32.3
[2022-09-02 00:55] VITALS: BP 147/76; PULSE 67; RESP 17; TEMP 36.4; O2SAT 97
[2022-09-02 01:07] LABS: MANUAL DIFF FLAG NO
[2022-09-02 01:09] LABS: Basophils Absolute Auto 0.1 X10*3/uL (0.0-0.2); Basophils Percent Auto 0.8 % (0-2); Eosinophils Absolute Auto 0.4 X10*3/uL (0.0-0.4); Eosinophils Percent Auto 4.2 % (0-4); Hematocrit 42.1 % (42.0-52.0); Hemoglobin 14.5 g/dl (14.0-18.0); Imm Gran Abs Auto 0.02 X10*3/uL (0.00-0.03); Imm Gran Pct Auto 0.2 % (0.0-0.4); Lymphocytes Percent Auto 34.6 % (20-40); Mean Corpuscular HGB Conc 34.4 g/dl (31.0-36.0); Mean Corpuscular Hemoglobin 28.7 pg (27.0-33.0); Mean Corpuscular Volume 83.4 fL (80.0-98.0); Mean Platelet Volume 9.8 fL (9.4-12.4); Monocytes Absolute Auto 0.6 X10*3/uL (0.1-1.2); Monocytes Percent Auto 6.8 % (2-11); Neutrophils Absolute Auto 4.6 x10*3/uL (2.0-8.3); Neutrophils Percent Auto 53.4 % (45-73); Platelet Count 241 X10*3/uL (160-400); Red Blood Count 5.05 X10*6/uL (4.60-5.80); Red Cell Distribution Width 12.9 % (11.0-16.0); White Blood Count 8.7 X10*3/uL (4.8-10.8)
[2022-09-02 01:21] LABS: Anion Gap 11 (12-20); Blood Urea Nitrogen 12 mg/dL (9-16); Calcium 9.5 mg/dL (8.4-10.2); Carbon Dioxide 26 mmol/L (22-29); Chloride 107 mmol/L (96-108); Creatinine Clr Calc Pharmacy 96.9; Estimated Glomerular Filt Rate > 60; Glucose Random 139 mg/dL (60-115); Potassium 4.1 mmol/L (3.3-5.1); Sodium 140 mmol/L (135-145)
[2022-09-02 01:33] LABS: Troponin-I High Sensitivity 6.5 ng/L (<3.5-35.0)
--- NOTE | 2022-09-02 01:52 | ED_ITS ---
HPI - Chest Pain General Chief Complaint: Chest Pain Stated Complaint: heart problems Time Seen by Provider: 09/02/22 01:52 Source: patient Mode of arrival: ambulatory Limitations: no limitations History of Present Illness HPI narrative: 39-year-old male who presents emergency department for evaluation of cough, wh eezing, chest pain, shortness of breath x2 weeks. Patient states he has a cough which was initially productive and is now nonproductive. States the cough is very persistent. He is also complaining of chest pain. He points to his left chest when asked to localize the pain. Describes as a sharp pain which is worse if he pushes on his chest and worse if he coughs or takes a deep breath. He feels short of breath and is having dyspnea on exertion. He denied fever or chills. He denied nausea, vomiting or diarrhea. He states that he is feeling fatigued and he is having muscle and joint pain. Related Data Home Medications Medication Instructions Recorded Confirmed omeprazole 20 mg capsule,delayed 20 mg PO DAILY PRN 03/09/22 07/16/22 release Previous Rx's Medication Instructions Recorded magnesium oxide 400 mg (241.3 mg 400 mg PO BEDTIME 30 days #30 tabs 04/10/22 magnesium) tablet azithromycin 250 mg tablet See Rx Instructions PO .COMPLEX #6 09/02/22 (Zithromax Z-Shon) tabs benzonatate 100 mg capsule 200 mg PO TID PRN cough #20 caps 09/02/22 Allergies Allergy/AdvReac Type Severity Reaction Status Date / Time acetaminophen [Percocet] Allergy Unknown hard to Verified 09/02/22 00:45 breath oxycodone [From PERCOCET] Allergy Unknown UNKNOWN Verified 09/02/22 00:45 From PERCOCET AdvReac Unknown ANXIOUS, Uncoded 07/16/22 09:50 DID NOT FEEL GOOD Review of Systems Review of Systems: Yes all other systems are reviewed and are negative [facility] Past Medical History [facility] Narrative: Past medical history: Obstructive sleep apnea, hypertrophic cardiomyopathy, COVID-19 infection in the past. Social history: He denies tobacco, alcohol and drug use. Medical History Diabetes Surgical History History of back surgery History of cholecystectomy History of tonsillectomy Family History Family History Mother Brain cancer Father No problems noted. Social History Social History Alcohol intake: never Patient Tobacco Use Status: Never used Tobacco Advance Directives: No Advance Directives Information Provided: Yes Physical Exam Vital Signs: Vital Signs: Last Vital Signs Temp 97.6 F 09/02/22 00:55 Pulse 67 09/02/22 00:55 Resp 17 09/02/22 00:55 BP 147/76 H 09/02/22 00:55 Pulse Ox 97 09/02/22 00:55 O2 Del Method 09/02/22 00:55 BMI result Body Mass Index 32.3 Const: General: cooperative and no acute distress Orientation/consciousness: oriented to person and oriented to place Limitations: no limitations HEENT: Head: Yes normal to inspection, Yes normocephalic and Yes atraumatic Ears: external ears normal General nose exam: Normal external nose present Face and sinus: Yes normal facial exam Mouth: Normal oral and palatal mucosa present Throat: Yes posterior oropharynx normal Eyes: General: appearance normal, both eyes and all related structures Pu pils: Equal, round and reactive pupils present Neck: Neck: Yes normal visual inspection, Yes no lymphadenopathy, Yes trachea midline and Yes supple Chest: Chest palpation & inspection: normal inspection of the chest and normal palpation of entire chest wall Resp: Effort & Inspection: normal respiratory effort and able to speak in complete sentences Auscultation: clear to auscultation bilaterally Cardio: Rate: regular rate Rhythm: regular rhythm Heart sounds: S1 normal heart sound present, S2 normal heart sound present and no murmurs GI: Inspection: Yes normal to inspection Palpation (GI): Soft to palpation, nontender and no guarding Auscultation: normal bowel sounds : General: Yes no CVA tenderness Back/Spine/Pelvis: Back: no CVA tenderness Skin: General skin exam: no rashes or lesions noted Neuro: General: oriented to person and oriented to place Cranial nerves: Yes Equal, round and reactive pupils present Cognition (Neuro): normal cognition Motor exam (neuro): 5/5 motor strength present throughout Extrem: General: Yes normal to inspection Psych: Appearance: grossly normal Speech and movement: Normal speech and movement present Affect: normal affect Attitude: cooperative Thought process: Normal thought process present Medical Decision Making Medical Decision Making [facility] Narrative: 47-year-old male who presents emergency department for evaluation of cough x2 weeks, pleuritic chest pain, dyspnea on exertion and shortness of breath. Patient's vital signs were normal. Lung exam was clear. Patient's presentation is consistent with acute bronchitis. Patient was given Zithromax 500 mg orally and Tessalon Perles 200 mg orally. Patient was given prescription for Zithromax Z-Shon and Tessalon Perles 200 mg 3 times a day as needed for cough. He was give n printed and verbal instructions discharged home. Differential Diagnosis Differential diagnosis includes was not limited to pneumonia, bronchitis, viral syndrome Lab Data [facility] Lab Attestation statement: I reviewed the patient's lab results. My interpretation of patient's laboratory evaluation as follows: CBC was normal. Glucose elevated 139. High sensitivity troponin I was detectable but not elevated 6.5. 09/02/22 01:01 09/02/22 01:01 Labs: Lab Results 09/02/22 09/02/22 09/02/22 Range/Units 01:01 01:01 01:01 WBC 8.7 (4.8-10.8) X10*3/uL RBC 5.05 (4.60-5.80) X10*6/uL Hgb 14.5 (14.0-18.0) g/dl Hct 42.1 (42.0-52.0) % MCV 83.4 (80.0-98.0) fL MCH 28.7 (27.0-33.0) pg MCHC 34.4 (31.0-36.0) g/dl RDW 12.9 (11.0-16.0) % Plt Count 241 (160-400) X10*3/uL MPV 9.8 (9.4-12.4) fL Immature Gran % (Auto) 0.2 (0.0-0.4) % Neut % (Auto) 53.4 (45-73) % Lymph % (Auto) 34.6 (20-40) % [place] % (Auto) 6.8 (2-11) % Eos % (Auto) 4.2 H (0-4) % Baso % (Auto) 0.8 (0-2) % Lymph # (Auto) 3.0 (1.2-4.9) X10*3/uL [place] # (Auto) 0.6 (0.1-1.2) X10*3/uL Eos # (Auto) 0.4 (0.0-0.4) X10*3/uL Baso # (Auto) 0.1 (0.0-0.2) X10*3/uL Abs Immat Gran (auto) 0.02 (0.00-0.03) X10*3/uL Absolute Neuts (auto) 4.6 (2.0-8.3) x10*3/uL Absolute Nucleated RBC 0.000 (0.0-0.012) X10*3/uL Nucleated RBC % (auto) 0.0 (0.0-0.2) /100WBC Sodium 140 (135-145) mmol/L Potassium 4.1 (3.3-5.1) mmol/L Chloride 107 (96-108) mmol/L Carbon Dioxide 26 (22-29) mmol/L Anion Gap 11 L (12-20) BUN 12 (9-16) mg/dL Creatinine 1.05 (0.5-1.4) mg/dL Estim Creat Clear Calc 96.9 Estimated GFR > 60 Random Glucose 139 H (60-115) mg/dL Calcium 9.5 (8.4-10.2) mg/dL Troponin I High Sens 6.5 (<3.5-35.0) ng/L Independent Interpretation I performed an independent interpretation of an: EKG Interpretation: My independent interpretation patient's 12 EKG done at 00:36 hours is as follows: Normal sinus rhythm with a rate of 68, normal CA interval, QRS duration QTC interval, no ST segment elevation, ST segment depression with inverted T-waves V4, V5 and V6, inverted T-waves 1 and aVL. Compared to EKG dated 06/25/2022 the inverted T-waves in 1 and aVL are old, inverted T-waves in the for through V6 are also old. Discharge Plan Discharge Clinical Impression: Bronchitis, Acute dyspnea Chest pain Qualifiers: Chest pain type: other chest pain Qualified Code(s): R07.89 - Other chest pain Patient Disposition: Home, Self-Care Instructions: Acute Bronchitis (ED) Additional Instructions: Your laboratory evaluation was unremarkable. Your EKG was unremarkable. Your symptoms are consistent with bronchitis (infection of your breathing tubes). I am going to treat you for a bacterial infection with Zithromax (azithromycin) Take Zithromax (azithromycin) Z-Shon as prescribed. Day 1 take 2 pills, each day after that take 1 pill for total of 5 days. This medication states in your system for 7-10 days and continues to work despite only taking it for 5 days. Take Tessalon Perles 200 mg pills, 1 pill every 6 hours as needed for cough. Take ibuprofen 200 mg pills, 2 pills every 6 hours as needed for pain or fever. Take Tylenol (acetaminophen) 500 mg pills, 2 pills every 6 hours as needed for pain or fever. Follow-up with your doctor in 2 days. Please return to the emergency department if your symptoms get worse or if you develop any symptoms that are concerning to you. Prescriptions: New azithromycin [Zithromax Z-Shon] 250 mg tablet See Rx Instructions .ROUTE .COMPLEX Qty: 6 0RF Rx Instructions: take 500 mg today (day 1), then 250 mg for 4 days (days 2-5) benzonatate 100 mg capsule 200 mg PO TID PRN (Reason: cough) Qty: 20 0RF No Action omeprazole 20 mg capsule,delayed release(DR/EC) 20 mg PO DAILY PRN magnesium oxide 400 mg (241.3 mg magnesium) tablet 400 mg PO BEDTIME 30 Days Qty: 30 6RF Rx Instructions: may hold for loose stools
[2022-09-02] MEDS: Azithromycin 500 MG TABLET PO (02:36)
[2022-09-02] MEDS: Benzonatate 100 MG CAPSULE 200 MG PO (02:36)
[2022-09-02 02:42] VITALS: BP 126/78; PULSE 62; RESP 16; O2SAT 97
--- NOTE | 2022-09-02 02:47 | PC.NURSE ---
Pt A&Ox4, reports 01/21 nonradiating Left sided CP, states it feels like pressure and worsens with coughing. EKG obtained and reviewed by provider, placed on monitor, IV placed, blood work collected and sent to lab. Lung sounds clear. VSS.
== END 2022-09-02 02:53 | disposition home or self-care (01) ==
PROVIDERS: Emergency Provider Emergency Medicine Emergency Medical Services
DX: J20.9 Acute bronchitis, unspecified (principal); R06.00 Dyspnea, unspecified; R07.89 Other chest pain
CPT/HCPCS: 36415; 80048; 84484; 85025; 93005; 99284; 99285

== ENCOUNTER → 2022-11-16 09:05 | Outpatient (BNVA) | payer OTHER, SELFPAY | PROVIDERS: Visit Provider Nurse Practitioner Family | DX: R51.9 Headache, unspecified (principal); G47.33 Obstructive sleep apnea (adult) (pediatric) | CPT/HCPCS: 99212 ==

== ENCOUNTER 2022-12-22 14:38 | Outpatient (AMB) | payer OTHER, SELFPAY ==
[2022-12-22 14:45] VITALS: BP 120/80; PULSE 75; BMI 32.6
--- NOTE | 2022-12-22 14:45 | A.OFFVIS_ITS ---
Intake Vital Signs 12/22/22 14:45 Height 5 ft 8 in Weight 214 lb 11.684 oz BMI 32.6 BP 120/80 Blood Pressure Location Lt brachial Position Sitting Pulse 75 Intake Visit Reasons: f/up genetics at [facility] [place] and holter Intake Note: follow up Senior Project Architect Required: No Accompanied by: Self / Same As Patient Allergies acetaminophen [Percocet] Allergy (Unknown, Verified 12/22/22 14:48) hard to breath oxycodone [From PERCOCET] Allergy (Unknown, Verified 12/22/22 14:48) UNKNOWN From PERCOCET Adverse Reaction (Unknown, Uncoded 12/22/22 14:48) ANXIOUS, DID NOT FEEL GOOD Medication List - Last Reconciled 12/22/22 by José Antonio Bajwa MD benzonatate 200 mg PO TID PRN HPI HPI Comments History of Present Illness Details Madhav returns for follow-up. He was seen regarding abnormal EKG. He had some atypical sounding chest pain that led to further workup. Underwent echocardiogram, stress test as well as cardiac MRI. Overall, suspected to have hypertrophic cardiomyopathy. This has led to anxiety but otherwise he seems to be doing okay. No specific cardiac symptoms. No family history of hypertrophic cardiomyopathy. He is not known to be hypertensive. [facility] Medical History Diabetes Surgical History History of back surgery History of cholecystectomy History of tonsillectomy Family History Mother Brain cancer Father No problems noted. Social History Alcohol intake: never Patient Tobacco Use Status: Never used Tobacco Review of Systems Const Denies weakness ENT Denies dizziness Card Denies chest pain, Denies chest pain with activity, Denies syncope, Denies rapid heart rate, Denies pedal edema, Denies edema, Denies leg edema, Denies lightheadedness, Denies palpitations, Denies dyspnea, Denies dyspnea on exertion and Denies orthopnea Resp Denies cough, Denies dyspnea and Denies dyspnea on exertion GI Denies hematochezia and Denies change in stool character Musc Denies abnormal gait, Denies muscle cramps, Denies muscle weakness, Denies numbness, Denies radiating pain into limb and Denies tingling Neuro Denies abnormal gait, Denies dizziness, Denies syncope, Denies numbness, Denies tingling and Denies weakness Endo Denies palpitations Physical Exam Vital Signs: Last Vital Signs Pulse 75 12/22/22 14:45 BP 120/80 12/22/22 14:45 BMI result Body Mass Index 32.6 Const General: comfortable and no acute distress Orientation/consciousness: patient oriented x3 HEENT Other: Unremarkable Head: Yes normal to inspection Neck Neck: Yes normal visual inspection Chest Chest palpation & inspection: normal inspection of the chest Resp Auscultation: clear to auscultation bilaterally Cardio Palpation: normal PMI Heart sounds: S1 normal heart sound present, S2 normal heart sound present, no gallops, no murmurs and no rubs GI Palpation (GI): Soft to palpation Back/Spine/Pelvis Other: unremarkable Skin General skin exam: no rashes or lesions noted Neuro General: patient oriented x3 Extrem General: Yes normal to inspection Psych Mental Status: mental status grossly normal Assessment & Plan Assessment & Plan (1) HOCM (hypertrophic obstructive cardiomyopathy): Code(s): I42.1 - Obstructive hypertrophic cardiomyopathy Plan Cardiac studies reviewed. Recent EKG shows sinus rhythm at 88/Min; lateral T inversions including V4 to V6 as well as 1, aVL. However, EKGs were reviewed as early as 2010 and is still shows the same change. Hence appears chronic. Echocardiogram with LVEF of 64%. At least moderate septal hypertrophy. Moderate diastolic dysfunction. Mid inferolateral hypokinesis. Mildly decreased RV function. In the stress test, was able to exercise for 10.2 Mets on Jian protocol without angina. Slightly accentuated blood pressure response. Perfusion imaging unremarkable. Cardiac MRI with basal to mid septum thickening at 1.8 cm; slight thickening in the apex and LVEF of 60%. Small sized epicardial delayed enhancement in the mid inferior septum suggesting hypertrophic cardiomyopathy. Involvement is less than 5% of total myocardium. Mild turbulence in the LVOT. Holter shows underlying sinus rhythm with the average rate of 73/Min. No significant arrhythmias. He was also seen by Genetics. Variant of uncertain significance identified. Findings discussed with patient. Based on the information above, no evidence of high risk findings. Overall, prognosis is favorable. No need for any medications at this time, as the no clear-cut symptoms or outflow tract gradient of concern. We discussed family screening as well. Also his first-degree family relatives need a baseline echocardiogram. Otherwise, reassurance. Follow-up in 1 year. Total time spent including review of data, counseling, documentation, coordination of care-32 minutes. Orders: Orders CA echo transthoracic complete 51 Weeks I42.1 - Obstructive hypertrophic cardiomyopathy Medications: Changed From benzonatate 200 mg (2 x 100 mg) PO TID PRN 20 caps 0RF cough To benzonatate 200 mg PO TID PRN Coding Level of Care Code Est Pt Level 4 (80149) Diagnoses HOCM (hypertrophic obstructive cardiomyopathy) I42.1
== END 2022-12-22 15:03 | disposition home or self-care (01) ==
PROVIDERS: Visit Provider Internal Medicine
DX: I42.1 Obstructive hypertrophic cardiomyopathy (principal)
CPT/HCPCS: 99214

== ENCOUNTER → 2022-12-22 14:38 | Outpatient (BNVA) | payer OTHER, SELFPAY | PROVIDERS: Visit Provider Internal Medicine | DX: I42.1 Obstructive hypertrophic cardiomyopathy (principal) | CPT/HCPCS: 99212 ==

== ENCOUNTER 2023-01-12 05:31 | Emergency (ER) | payer OTHER, SELFPAY ==
--- NOTE | ~2023-01-12 | CT_ITS ---
EXAMINATION: CT ABDOMEN AND PELVIS WITHOUT CONTRAST CLINICAL INFORMATION: Bilateral flank pain COMPARISON: CT abdomen from 03/03/2022 TECHNIQUE: Multidetector volumetric imaging was performed from the superior aspect of the liver through the pubic symphysis. Sagittal and coronal reformatted images were obtained on the technologist's workstation. This CT examination was performed using dose optimization techniques as appropriate, variously including the following: *Automated exposure control *Adjustment of mA and/or kV according to patient size (this includes techniques or standardized protocols for targeted exams where dose is matched to indication/reason for exam; i.e. extremities or head) *Use of iterative reconstruction technique DLP: 701 mGy-cm FINDINGS: LUNG BASES: The visualized lung bases are unremarkable. LIVER, GALLBLADDER, AND BILIARY TREE: The liver is normal in size, shape, and attenuation. Stable radiopaque densities along the left hepatic lobe.. No focal hepatic lesion or biliary ductal dilatation is present. The gallbladder is surgically absent. PANCREAS: Unremarkable. SPLEEN: Unremarkable. ADRENAL GLANDS: Unremarkable. KIDNEYS AND URETERS: The kidneys are normal in size, shape, and attenuation. No hydronephrosis, hydroureter, or calculi seen. No perinephric stranding. BLADDER: Unremarkable. GASTROINTESTINAL TRACT: Colonic diverticulosis without acute diverticulitis. The small and large bowel are unremarkable. The appendix is unremarkable. ABDOMINAL WALL: No significant hernia is appreciated. LYMPH NODES: Normal. VASCULAR: Unremarkable. PELVIC VISCERA: Prostate measures up to 4.0 cm OSSEOUS STRUCTURES: Very slight grade 1 retrolisthesis of L5 and S1 with posterior disc protrusion CT/CT abdomen pelvis wo IV con IMPRESSION: 1. No nephrolithiasis or hydronephrosis. 2. Status post cholecystectomy. 3. Colonic diverticulosis without acute diverticulitis.
[2023-01-12 05:33] VITALS: BP 141/81; PULSE 65; RESP 14; TEMP 36; O2SAT 99; BMI 33.5
[2023-01-12 06:15] LABS: Appearance Urine Clear; Color Urine Yellow; Glucose Urine UA Negative (Negative); Leukocyte Esterase Urine Negative (Negative); Nitrite Urine Negative (Negative); PH 5.5 (5.0-9.0); Specific Gravity - Urine 1.025 (1.005-1.025); Urine Blood Negative (Negative); Urine Ketones Negative (Negative); Urine Protein Negative (Neg-Trace)
[2023-01-12 06:16] VITALS: BP 130/71; PULSE 62; RESP 17; TEMP 36.5; O2SAT 95
[2023-01-12 06:28] LABS: MANUAL DIFF FLAG NO
[2023-01-12 06:29] LABS: Basophils Absolute Auto 0.1 X10*3/uL (0.0-0.2); Basophils Percent Auto 0.8 % (0-2); Eosinophils Absolute Auto 0.2 X10*3/uL (0.0-0.4); Eosinophils Percent Auto 2.5 % (0-4); Hematocrit 43.7 % (42.0-52.0); Hemoglobin 15.2 g/dl (14.0-18.0); Imm Gran Abs Auto 0.02 X10*3/uL (0.00-0.03); Imm Gran Pct Auto 0.3 % (0.0-0.4); Lymphocytes Absolute Auto 2.6 X10*3/uL (1.2-4.9); Lymphocytes Percent Auto 32.3 % (20-40); Mean Corpuscular HGB Conc 34.8 g/dl (31.0-36.0); Mean Corpuscular Hemoglobin 29.4 pg (27.0-33.0); Mean Corpuscular Volume 84.5 fL (80.0-98.0); Mean Platelet Volume 10.4 fL (9.4-12.4); Monocytes Absolute Auto 0.7 X10*3/uL (0.1-1.2); Monocytes Percent Auto 9.1 % (2-11); Neutrophils Absolute Auto 4.4 x10*3/uL (2.0-8.3); Platelet Count 206 X10*3/uL (160-400); Red Blood Count 5.17 X10*6/uL (4.60-5.80); Red Cell Distribution Width 12.7 % (11.0-16.0); White Blood Count 7.9 X10*3/uL (4.8-10.8)
--- NOTE | 2023-01-12 06:34 | ED_ITS ---
HPI - General Adult General Chief complaint: Back Pain/Injury Stated complaint: Back pain Time Seen by Provider: 01/12/23 06:30 Source: patient Mode of arrival: ambulatory Limitations: no limitations History of Present Illness HPI narrative: Patient is a 47 year old assigned male at with a history of diabetes and HOCM presenting to the emergency department today with bilateral low back pain. Patient states that over the last week he has had bilateral low back pain. Patient denies any dizziness, lightheadedness, abdominal pain, nausea, vomiting, fever, chills, blurry vision, double vision, loss of vision, chest pain, difficulty breathing, shortness of breath, night sweats, pain with urination, increased urinary frequency, increased urinary urgency, blood in his urine or stool, syncope or a near syncopal episode, recent trauma or falls, bowel incontinence, bladder incontinence, bowel retention, bladder retention, or any other complaints at this time. Onset (ago): week(s) (1) Location: back Radiation: non-radiation Severity: mild Severity scale (1-10): 3 Quality: aching and dull Pain Consistency: constant Relieving factors: none Exacerbating factors: none Associated symptoms: denies other symptoms Related Data Home Medications Medication Instructions Recorded Confirmed benzonatate 100 mg capsule 200 mg PO TID PRN cough 12/22/22 12/22/22 Previous Rx's Medication Instructions Recorded cyclobenzaprine 5 mg tablet 5 mg PO TID PRN muscle spasm 7 01/12/23 days #21 tabs naproxen 500 mg tablet 500 mg PO BID 7 days #14 tabs 01/12/23 Allergies Allergy/AdvReac Type Severity Reaction Status Date / Time acetaminophen [Percocet] Allergy Unknown hard to Verified 12/22/22 14:48 breath oxycodone [From PERCOCET] Allergy Unknown UNKNOWN Verified 12/22/22 14:48 From PERCOCET AdvReac Unknown ANXIOUS, Uncoded 12/22/22 14:48 DID NOT FEEL GOOD Review of Systems Constitutional: Constitutional: Reports no additional constitutional complaints, Denies chills, Denies fever(s) and Denies night sweats Eyes: Eyes: Reports no additional eye complaints, Denies blurry vision, Denies change in vision, Denies diplopia, Denies eye discharge, Denies loss of vision and Denies eye pain ENT: Denies dizziness Cardiovascular: Cardiovascular: Reports no additional cardiovascular complaints, Denies chest pain, Denies lightheadedness, Denies Loss of Consciousness and Denies dyspnea Respiratory: Respiratory: Reports no additional respiratory complaints and Denies dyspnea Gastrointestinal: Gastrointestinal: Reports no additional gastrointestinal complaints, Denies abdominal pain, Denies melena, Denies hematochezia, Denies change in bowel habits and Denies change in stool character Genitourinary: Genitourinary: Reports no additional male genitourinary complaints, Denies hematuria, Denies oliguria, Denies difficulty urinating, Denies dysuria, Denies urinary frequency, Denies urinary hesitancy, Denies urinary incontinence and Denies urinary urgency Musculoskeletal: Musculoskeletal: Reports no additional musculoskeletal complaints, Reports back pain, Denies numbness and Denies tingling Neurologic: Denies dizziness, Denies loss of vision, Denies numbness and Denies tingling Psychiatric: Psychiatric: Reports no additional psychiatric complaints Endocrine: Endocrine: Reports no additional endocrine complaints Hematologic/Lymphatic: Hematologic/Lymphatic: Reports no additional hematologic/lymphatic complaints Allergic/Immunologic: Allergic/Immunologic: Reports no additional allergic/immunologic complaints [facility] Past Medical History Attestation statement: The following information was validated with the patient. Source: old records reviewed and nursing notes reviewed Medical History Abnormal EKG Atypical chest pain Bilateral flank pain Cough COVID-19 Diabetes Headache Myalgia Surgical History History of back surgery History of cholecystectomy History of tonsillectomy Family History Family History Mother Brain cancer Father No problems noted. Social History Social History Alcohol intake: never Patient Tobacco Use Status: Never used Tobacco Smoked in Last 30 Days: No Use of substances other than those prescribed or required for medical reasons: No Advance Directives: No Advance Directives Information Provided: Yes Physical Exam ED Vital Signs: Vital Signs - 24 hr 01/12/23 05:33 01/12/23 06:16 01/12/23 08:20 Temperature 96.8 F 97.7 F 97.9 F Pulse Rate 65 62 62 Respiratory Rate 14 17 16 Blood Pressure 141/81 H 130/71 119/69 Pulse Oximetry 99 95 96 Oxygen Delivery Method Room Air Room Air Room Air BMI result Body Mass Index 33.5 Const General: cooperative, no acute distress, alert and awake Nutritional Appearance: well nourished Orientation/consciousness: patient oriented x3 Limitations: no limitations HENMT Head: Yes normal to inspection and Yes atraumatic Ears: hearing grossly normal bilaterally and external ears normal General nose exam: Normal external nose present, no nasal discharge noted and no epistaxis Face and sinus: Yes normal facial exam, No abrasion and No laceration Mouth: Normal oral and palatal mucosa present, no drooling and no muffled voice Eyes General: appearance normal, both eyes and all related structures Periorbital: periorbital findings normal Eyelids: Yes eyelids normal Conjunctivae: conjunctivae normal Pupils: Equal, round and reactive pupils present EOM: EOMs intact bilaterally Neck Neck: Yes normal visual inspection, Yes full ROM and Yes no lymphadenopathy Chest Chest palpation & inspection: normal inspection of the chest Resp Effort & Inspection: normal respiratory effort and able to speak in complete sentences Auscultation: clear to auscultation bilaterally Cardio Rate: regular rate Rhythm: regular rhythm GI Inspection: Yes normal to inspection Palpation (GI): Soft to palpation, not firm, nontender and no guarding General: Yes no CVA tenderness Back/Spine/Pelvis Back: no CVA tenderness Cervical Spine: normal cervical lordosis and cervical ROM normal Thoracic/Lumbar Spine: thoracic and lumbar spine normal to inspection and thoraco-lumbar ROM normal Neuro General: patient oriented x3 and moves all extremities Cranial nerves: Yes Equal, round and reactive pupils present Cognition (Neuro): normal cognition Motor exam (neuro): 5/5 motor strength present throughout Sensory Exam: Normal double simultaneous stimulation for sensation Coordination: [id number] test normal Extrem General: Yes normal to inspection, Yes full ROM and Yes capillary refill normal Psych Appearance: grossly normal Mental Status: mental status grossly normal Affect: normal affect Attitude: cooperative Thought process: Normal thought process present Thought content: Normal thought content present Insight: Good insight present (Psych) Medications Administered Discontinued Medications Generic Name Dose Route Start Last Admin Trade Name Freq PRN Reason Stop Dose Admin Cyclobenzaprine HCl 5 mg 01/12/23 06:55 01/12/23 07:07 Cyclobenzaprine Hcl 5 Mg Tablet PO 01/12/23 06:56 5 mg ONCE ONE Administration Ketorolac Tromethamine 15 mg 01/12/23 06:55 01/12/23 07:07 Ketorolac Tromethamine 15 Mg/Ml Vial IM 01/12/23 06:56 15 mg ONCE ONE Administration Medical Decision Making Medical Decision Making [facility] Narrative: Patient is a 47 year old assigned male at with a history of diabetes and HOCM presenting to the emergency department today with low back pain. Patient's physical exam was unremarkable. Patient's blood work was unremarkable. Patient's urine showed no acute process. Patient's abdomen/pelvis CT showed no acute process. I explained my physical exam findings as well as all test results to the patient. I answered all questions asked by the patient. Patient received IM toradol and PO Flexeril which he stated helped his symptoms significantly. I stressed the importance of the patient taking his medication as prescribed. I stressed the importance of the patient following up with his primary care provider. I stressed the importance of the patient returning to the emergency department immediately if his symptoms were to worsen or if he were to develop any dizziness, shortness of breath, difficulty breathing, chest pain, blurry vision, loss of vision, nausea, vomiting, abdominal pain, fever, chills, back pain, or any other complaints. Patient verbalized agreement and understanding with this treatment plan and discharge. Differential Diagnosis Differential Diagnoses: The differential diagnosis associated with the presentation includes Low back pain Renal calculi Lumbar strain Lumbar sprain Admission/Observation Consideration of admission/observation: Escalation of care including admission/observation considered Patient would have been admitted to the hospital had his work up had any findings where hospital admission was appropriate and his clinical presentation warranted hospital admission. Lab Data [facility] Lab Attestation statement: I reviewed the patient's lab results. My interpretation of these studies and their corresponding values is that they are grossly normal. 01/12/23 06:22 01/12/23 06:22 Labs: Lab Results 01/12/23 01/12/23 01/12/23 Range/Units 06:08 06:22 06:22 WBC 7.9 (4.8-10.8) X10*3/uL RBC 5.17 (4.60-5.80) X10*6/uL Hgb 15.2 (14.0-18.0) g/dl Hct 43.7 (42.0-52.0) % MCV 84.5 (80.0-98.0) fL MCH 29.4 (27.0-33.0) pg MCHC 34.8 (31.0-36.0) g/dl RDW 12.7 (11.0-16.0) % Plt Count 206 (160-400) X10*3/uL MPV 10.4 (9.4-12.4) fL Immature Gran % (Auto) 0.3 (0.0-0.4) % Neut % (Auto) 55.0 (45-73) % Lymph % (Auto) 32.3 (20-40) % Merrick % (Auto) 9.1 (2-11) % Eos % (Auto) 2.5 (0-4) % Baso % (Auto) 0.8 (0-2) % Lymph # (Auto) 2.6 (1.2-4.9) X10*3/uL Merrick # (Auto) 0.7 (0.1-1.2) X10*3/uL Eos # (Auto) 0.2 (0.0-0.4) X10*3/uL Baso # (Auto) 0.1 (0.0-0.2) X10*3/uL Abs Immat Gran (auto) 0.02 (0.00-0.03) X10*3/uL Absolute Neuts (auto) 4.4 (2.0-8.3) x10*3/uL Absolute Nucleated RBC 0.000 (0.0-0.012) X10*3/uL Nucleated RBC % (auto) 0.0 (0.0-0.2) /100WBC Sodium 139 (135-145) mmol/L Potassium 3.9 (3.3-5.1) mmol/L Chloride 107 (96-108) mmol/L Carbon Dioxide 20 L (22-29) mmol/L Anion Gap 16 (12-20) BUN 13 (9-16) mg/dL Creatinine 0.97 (0.5-1.4) mg/dL Estim Creat Clear Calc 103.3 Estimated GFR > 60 Random Glucose 135 H (60-115) mg/dL Calcium 9.8 (8.4-10.2) mg/dL Total Bilirubin 0.9 (0.0-1.0) mg/dL Direct Bilirubin 0.2 (0.0-0.5) mg/dL AST 28 (5-37) U/L ALT 60 H (0-40) U/L Alkaline Phosphatase 69 (39-117) U/L Total Protein 7.2 (6.5-8.0) g/dL Albumin 4.2 (3.5-5.0) g/dL Lipase 25 (8-78) U/L Urine Color Yellow Urine Appearance Clear Urine pH 5.5 (5.0-9.0) Ur Specific [place] 1.025 (1.005-1.025) Urine Protein Negative (Neg-Trace) mg/dL Urine Glucose (UA) Negative (Negative) mg/dL Urine Ketones Negative (Negative) mg/dL Urine Blood Negative (Negative) Urine Nitrite Negative (Negative) Ur Leukocyte Esterase Negative (Negative) Independent Interpretation I performed an independent interpretation of an: CT Scan Interpretation: My interpretation is in agreement with the radiologist's impression of this imaging study. EXAMINATION: CT ABDOMEN AND PELVIS WITHOUT CONTRAST? CLINICAL INFORMATION: Bilateral flank pain? COMPARISON: CT abdomen from 03/03/2022 TECHNIQUE: Multidetector volumetric imaging was performed from the superior aspect of the liver through the pubic symphysis. Sagittal and coronal reformatted images were obtained on the technologist's workstation.? This CT examination was performed using dose optimization techniques as appropriate, variously including the following: *Automated exposure control *Adjustment of mA and/or kV according to patient size (this includes techniques or standardized protocols for targeted exams where dose is matched to indication/reason for exam; i.e. extremities or head) *Use of iterative reconstruction technique DLP: 701 mGy-cm FINDINGS: LUNG BASES: The visualized lung bases are unremarkable.? LIVER, GALLBLADDER, AND BILIARY TREE: The liver is normal in size, shape, and attenuation. Stable radiopaque densities along the left hepatic lobe.. No focal hepatic lesion or biliary ductal dilatation is present. The gallbladder is surgically absent. PANCREAS: Unremarkable.? SPLEEN: Unremarkable.? ADRENAL GLANDS: Unremarkable.? KIDNEYS AND URETERS: The kidneys are normal in size, shape, and attenuation. No hydronephrosis, hydroureter, or calculi seen. No perinephric stranding. ? BLADDER: Unremarkable.? GASTROINTESTINAL TRACT: Colonic diverticulosis without acute diverticulitis. The small and large bowel are unremarkable. The appendix is unremarkable.? ABDOMINAL WALL: No significant hernia is appreciated.? LYMPH NODES: Normal. VASCULAR: Unremarkable. PELVIC VISCERA: Prostate measures up to 4.0 cm? OSSEOUS STRUCTURES: Very slight grade 1 retrolisthesis of L5 and S1 with posterior disc protrusion? CT/CT abdomen pelvis wo IV con IMPRESSION: 1.? No nephrolithiasis or hydronephrosis. 2.? Status post cholecystectomy. 3.? Colonic diverticulosis without acute diverticulitis. Dictated By: Fahad Henriquez MD Signed By: Electronically signed by Fahad Henriquez MD 01/12/23 7110 Radiology Impression Discussion of test interpretation with radiology: I have reviewed the radiologist's reading. Prescription Management I considered prescription management with: Pain Medication (patient prescribed pain medication) Chronic Conditions Patient?s care impacted by: Diabetes Discharge Plan Discharge Clinical Impression: Low back pain Patient Disposition: Home, Self-Care Instructions: Back Pain (ED) Additional Instructions: Follow up with your primary care provider. Return to the emergency department immediately if your symptoms worsen or if you develop any dizziness, shortness of breath, difficulty breathing, chest pain, blurry vision, loss of vision, nausea, vomiting, abdominal pain, fever, chills, back pain, or any other co mplaints. Prescriptions: New cyclobenzaprine 5 mg tablet 5 mg PO TID PRN (Reason: muscle spasm) 7 Days Qty: 21 0RF naproxen 500 mg tablet 500 mg PO BID 7 Days Qty: 14 0RF No Action benzonatate 100 mg capsule 200 mg PO TID PRN (Reason: cough) Referrals: Handy Casillas III, MD [Primary Care Provider] - Stand Alone Forms: Work/School Release Print Language: Arabic
[2023-01-12 06:42] LABS: Alanine Aminotransferase 60 U/L (0-40); Albumin Level 4.2 g/dL (3.5-5.0); Alkaline Phosphatase 69 U/L (39-117); Anion Gap 16 (12-20); Aspartate Amino Transferase 28 U/L (5-37); Bilirubin Direct 0.2 mg/dL (0.0-0.5); Bilirubin Total 0.9 mg/dL (0.0-1.0); Blood Urea Nitrogen 13 mg/dL (9-16); Calcium 9.8 mg/dL (8.4-10.2); Carbon Dioxide 20 mmol/L (22-29); Chloride 107 mmol/L (96-108); Creatinine Clr Calc Pharmacy 103.3; Estimated Glomerular Filt Rate > 60; Glucose Random 135 mg/dL (60-115); Lipase 25 U/L (8-78); Potassium 3.9 mmol/L (3.3-5.1); Sodium 139 mmol/L (135-145); Total Protein 7.2 g/dL (6.5-8.0)
[2023-01-12] MEDS: Ketorolac Tromethamine 15 MG/ML VIAL IM (07:07)
[2023-01-12] MEDS: Cyclobenzaprine HCl 5 MG TABLET PO (07:07)
--- NOTE | 2023-01-12 07:24 | PC.NURSE ---
alert and oriented, resp even and unlabored. medicated per the MAR for pain.
[2023-01-12 08:20] VITALS: BP 119/69; PULSE 62; RESP 16; TEMP 36.6; O2SAT 96
== END 2023-01-12 09:26 | disposition home or self-care (01) ==
PROVIDERS: Emergency Provider Emergency Medicine; PCP Internal Medicine
DX: M54.50 Low back pain, unspecified (principal); E11.9 Type 2 diabetes mellitus without complications
CPT/HCPCS: 36415; 74176; 80053; 81003; 82248; 83690; 85025; 96372; 99284; J1885

== ENCOUNTER 2023-05-19 10:58 | Outpatient (AMB) | payer OTHER, SELFPAY ==
--- NOTE | 2023-05-19 11:12 | MHC.OFFVIS ---
Intake Vital Signs 05/19/23 11:14 Height 5 ft 7 in Weight 214 lb BMI 33.5 BP 122/82 Blood Pressure Location Rt brachial Position Sitting Pulse 83 Pulse Source Pulse Oximeter Pulse Oximetry (%) 97 Oxygen Delivery Method Room Air Intake Visit Reasons: 6m f/u persistant headaches / LVM Intake Note: Patient presents for 6 month follow up. Allergies acetaminophen [Percocet] Allergy (Unknown, Verified 05/19/23 11:15) hard to breath oxycodone [From PERCOCET] Allergy (Unknown, Verified 05/19/23 11:15) UNKNOWN From PERCOCET Adverse Reaction (Unknown, Uncoded 05/19/23 11:15) ANXIOUS, DID NOT FEEL GOOD HPI HPI Comments History of Present Illness Details 48-yr-old male presents for f/u visit. Pt denies any significant interval medical changes. He continues to endorse snoring, unrefreshing sleep, and excessive daytime sleepiness- although not quite as severe as when he weighed more. His last sleep study was many years ago. He did have a CPAP machine years ago- but did not tolerate it. However, he had heard that the newer machines are more tolerable. He was scheduled for f/u sleep study in Jul but missed it. Would again like to be rescheduled- states he never hear anything after his last visit. He can have 1-2 occipital headaches a/w photophobia and phonophobia, pain 6/10. He takes water and rests which helps. He is not interested in trying anything new for this at this time. [facility] Medical History Abnormal EKG Atypical chest pain Bilateral flank pain Cough COVID-19 Diabetes Headache Myalgia Surgical History History of back surgery History of tonsillectomy History of cholecystectomy Family History Mother Brain cancer Father No problems noted. Social History Alcohol intake: never Patient Tobacco Use Status: Never used Tobacco Questionnaire [place] Sleepiness Scale Questions Sitting and reading: high chance of dozing Watching TV: high chance of dozing Sitting inactive in a theater, movie etc.: slight chance of dozing As a passenger in a car for an hour without break: high chance of dozing Lying down in the afternoon when circumstances permit: high chance of dozing Sitting and talking to someone: slight chance of dozing Sitting quietly after lunch without alcohol: high chance of dozing In a car, while stopped for a few minutes in the traffic: slight chance of dozing ESS < 10: normal, ESS > 12: pathologic: 18 Review of Systems Const All systems reviewed & are unremarkable except as noted in HPI and below Physical Exam Vital Signs: Last Vital Signs Pulse 83 05/19/23 11:14 BP 122/82 05/19/23 11:14 Pulse Ox 97 05/19/23 11:14 Oxygen Delivery Method Room Air 05/19/23 11:14 BMI result Body Mass Index 33.5 Const General: cooperative and no acute distress Orientation/consciousness: patient oriented x3 HEENT Head: Yes normocephalic Resp Effort & Inspection: normal respiratory effort and able to speak in complete sentences Neuro General: patient oriented x3, gait normal and CN's II-XI intact bilaterally Cognition (Neuro): normal cognition Motor exam (neuro): 5/5 motor strength present throughout Psych Appearance: grossly normal Mental Status: mental status grossly normal Speech and movement: Normal speech and movement present Affect: normal affect Attitude: cooperative Thought process: Normal thought process present Thought content: Normal thought content present Insight: Good insight present (Psych) Judgement: Good judgement present (Psych) Assessment & Plan Assessment & Plan (1) RICHARD (obstructive sleep apnea): Comment: not on PAP. Code(s): G47.33 - Obstructive sleep apnea (adult) (pediatric) (2) Excessive daytime sleepiness: Code(s): G47.19 - Other hypersomnia (3) Sleep difficulties: Code(s): G47.9 - Sleep disorder, unspecified (4) Obesity (BMI 30.0-34.9): Code(s): E66.9 - Obesity, unspecified (5) Migraine without aura: Code(s): G43.009 - Migraine without aura, not intractable, without status migrainosus Plan For RICHARD: Pt again advised to undergo HST to assess status of sleep apnea. For migrainous headache: Rest and Fluids at onset. Tx contraindications: Triptans- d/t HOCM Future considerations: gepant trial. f/u in 6 months or sooner prn. Orders: Orders RT home sleep study Today G47.19 - Other hypersomnia, G47.33 - Obstructive sleep apnea (adult) (pediatric), G47.9 - Sleep disorder, unspecified Coding Level of Care Code Est Pt Level 4 (65855) Diagnoses RICHARD (obstructive sleep apnea) G47.33 Excessive daytime sleepiness G47.19 Sleep difficulties G47.9 Obesity (BMI 30.0-34.9) E66.9 Migraine without aura G43.009
[2023-05-19 11:14] VITALS: BP 122/82; PULSE 83; O2SAT 97; BMI 33.5
== END 2023-05-19 11:41 | disposition home or self-care (01) ==
PROVIDERS: Visit Provider Nurse Practitioner Family
DX: G47.33 Obstructive sleep apnea (adult) (pediatric) (principal); G47.19 Other hypersomnia; G47.9 Sleep disorder, unspecified; E66.9 Obesity, unspecified; G43.009 Migraine without aura, not intractable, without status migrainosus
CPT/HCPCS: 99214

== ENCOUNTER → 2023-05-19 10:58 | Outpatient (BNVA) | payer OTHER, SELFPAY | PROVIDERS: Visit Provider Nurse Practitioner Family | DX: G43.009 Migraine without aura, not intractable, without status migrainosus (principal); G47.33 Obstructive sleep apnea (adult) (pediatric); G47.19 Other hypersomnia; G47.9 Sleep disorder, unspecified; E66.9 Obesity, unspecified; Z68.33 Body mass index [BMI] 33.0-33.9, adult | CPT/HCPCS: 99212 ==

== ENCOUNTER 2023-06-08 06:55 | Emergency (ER) | payer OTHER, SELFPAY ==
--- NOTE | ~2023-06-08 | CT_ITS ---
EXAMINATION: CT ABDOMEN AND PELVIS WITHOUT CONTRAST CLINICAL INFORMATION: Bilateral flank pain. Abdominal pain. COMPARISON: None available. TECHNIQUE: Multidetector volumetric imaging was performed from the superior aspect of the liver through the pubic symphysis. Sagittal and coronal reformatted images were obtained on the technologist's workstation. This CT examination was performed using dose optimization techniques as appropriate, variously including the following: *Automated exposure control *Adjustment of mA and/or kV according to patient size (this includes techniques or standardized protocols for targeted exams where dose is matched to indication/reason for exam; i.e. extremities or head) *Use of iterative reconstruction technique DLP: 668 mGy-cm FINDINGS: LUNG BASES: The visualized lung bases are unremarkable. LIVER, GALLBLADDER, AND BILIARY TREE: The liver is normal in size, shape, and attenuation. No focal hepatic lesion or biliary ductal dilatation is present. The gallbladder has been surgically removed. PANCREAS: Unremarkable. SPLEEN: Unremarkable. ADRENAL GLANDS: Unremarkable. KIDNEYS AND URETERS: The kidneys are normal in size, shape, and attenuation. No hydronephrosis, hydroureter, or calculi seen. No there is mild bilateral perinephric stranding. BLADDER: Unremarkable. GASTROINTESTINAL TRACT: There is scattered stool and gas throughout the colon without distention. The small bowel loops are normal caliber. Appendix is normal caliber. No inflammatory process seen in the abdomen. ABDOMINAL WALL: No significant hernia is appreciated. LYMPH NODES: Normal. VASCULAR: Unremarkable. PELVIC VISCERA: Unremarkable. OSSEOUS STRUCTURES: Unremarkable. CT/CT abdomen pelvis wo IV con IMPRESSION: No acute intra-abdominal process seen. Mild constipation. Fleischner guidelines were followed.
[2023-06-08 07:07] VITALS: BP 144/67; PULSE 64; RESP 16; TEMP 36.4; O2SAT 98; BMI 35.1
[2023-06-08 07:33] LABS: MANUAL DIFF FLAG NO
[2023-06-08 07:36] LABS: Basophils Absolute Auto 0.1 X10*3/uL (0.0-0.2); Basophils Percent Auto 0.9 % (0-2); Eosinophils Absolute Auto 0.2 X10*3/uL (0.0-0.4); Eosinophils Percent Auto 2.8 % (0-4); Hematocrit 44.7 % (42.0-52.0); Hemoglobin 15.4 g/dl (14.0-18.0); Imm Gran Abs Auto 0.02 X10*3/uL (0.00-0.03); Imm Gran Pct Auto 0.3 % (0.0-0.4); Lymphocytes Absolute Auto 2.7 X10*3/uL (1.2-4.9); Lymphocytes Percent Auto 39.3 % (20-40); Mean Corpuscular HGB Conc 34.5 g/dl (31.0-36.0); Mean Corpuscular Hemoglobin 29.4 pg (27.0-33.0); Mean Corpuscular Volume 85.3 fL (80.0-98.0); Mean Platelet Volume 10.6 fL (9.4-12.4); Monocytes Absolute Auto 0.6 X10*3/uL (0.1-1.2); Monocytes Percent Auto 8.6 % (2-11); Neutrophils Absolute Auto 3.3 x10*3/uL (2.0-8.3); Neutrophils Percent Auto 48.1 % (45-73); Platelet Count 193 X10*3/uL (160-400); Red Blood Count 5.24 X10*6/uL (4.60-5.80); Red Cell Distribution Width 12.7 % (11.0-16.0); White Blood Count 6.8 X10*3/uL (4.8-10.8)
[2023-06-08 07:41] LABS: Appearance Urine Clear; Color Urine Yellow; Glucose Urine UA Negative (Negative); Leukocyte Esterase Urine Negative (Negative); Nitrite Urine Negative (Negative); PH 5.5 (5.0-9.0); Specific Gravity - Urine 1.015 (1.005-1.025); Urine Blood Negative (Negative); Urine Ketones Negative (Negative); Urine Protein Negative (Neg-Trace)
[2023-06-08 07:52] LABS: Alanine Aminotransferase 73 U/L (0-40); Albumin Level 4.4 g/dL (3.5-5.0); Alkaline Phosphatase 71 U/L (39-117); Anion Gap 11 (12-20); Aspartate Amino Transferase 31 U/L (5-37); Bilirubin Direct 0.2 mg/dL (0.0-0.5); Bilirubin Total 0.7 mg/dL (0.0-1.0); Blood Urea Nitrogen 8 mg/dL (9-16); Calcium 9.6 mg/dL (8.4-10.2); Carbon Dioxide 28 mmol/L (22-29); Chloride 104 mmol/L (96-108); Creatinine Clr Calc Pharmacy 90.9; Estimated Glomerular Filt Rate > 60; Glucose Random 144 mg/dL (60-115); Lipase 30 U/L (8-78); Potassium 4.7 mmol/L (3.3-5.1); Sodium 138 mmol/L (135-145); Total Protein 7.4 g/dL (6.5-8.0)
--- NOTE | 2023-06-08 08:43 | ED.GENADULT ---
HPI - General Adult General Chief complaint: Abdominal Pain Stated complaint: Pain on Both Sides Time Seen by Provider: 06/08/23 08:27 Source: patient Mode of arrival: ambulatory Limitations: no limitations History of Present Illness HPI narrative: this is a 48-year-old male history of migraines, obesity, hypertrophic obstructive cardiomyopathy, obstructive sleep apnea presenting to the emergency department for evaluation of bilateral flank pain x9 days. A reports a sore sensation, tells me it is worse with movement, and lying flat. Unable to tell me what makes it better. Patient denies any heavy lifting or trauma to the area. Has never had pain like this before. No history of kidney stones. Reports his urinary habits are about the same however may be having some hesitancy with urination And burning however unclear. denies fevers, chills, nausea, vomiting, abdominal pain, headache, vision changes chest pain and shortness of breath. Related Data Home Medications Medication Instructions Recorded Confirmed benzonatate 100 mg capsule 200 mg PO TID PRN cough 12/22/22 12/22/22 Previous Rx's Medication Instructions Recorded cyclobenzaprine 5 mg tablet 5 mg PO TID PRN muscle spasm 7 01/12/23 days #21 tabs naproxen 500 mg tablet 500 mg PO BID 7 days #14 tabs 01/12/23 ketorolac 10 mg tablet 10 mg PO TID PRN pain 5 days #15 06/08/23 tabs lidocaine 5 % topical patch 1 patch topical DAILY PRN pain #15 06/08/23 ea Allergies Allergy/AdvReac Type Severity Reaction Status Date / Time acetaminophen [Percocet] Allergy Unknown hard to Verified 06/08/23 07:07 breath oxycodone [From PERCOCET] Allergy Unknown UNKNOWN Verified 06/08/23 07:07 From PERCOCET AdvReac Unknown ANXIOUS, Uncoded 06/08/23 07:07 DID NOT FEEL GOOD Review of Systems Review of Systems: Constitutional : No Weight loss, No Fever, No Chills, No Fatigue, No Malaise ENT/Mouth : No sore throat, No Rhinorrhea Eyes: No Eye Pain, No Swelling, No Redness Cardiovascular : No Chest Pain, No SOB, No Dyspnea on Exertion, No Orthopnea, No Edema, No Palpitations Respiratory : No Cough, No Sputum, No Wheezing Gastrointestinal : No Nausea, No Vomiting, No Diarrhea, No Constipation, No abdominal Pain, No Hematochezia, No Melena Genitourinary : No Dysuria, No Urinary Frequency, No Hematuria, Musculoskeletal : No joint pain, No Myalgias, No Joint Swelling, + flank pain Skin : No Skin Lesions, No rash Neuro : No Weakness, No Numbness, No Dizziness, No Headache All other systems reviewed and are negative Yes all other systems are reviewed and are negative [facility] Past Medical History Attestation statement: The following information was validated with the patient. Source: old records reviewed and nursing notes reviewed Medical History COVID-19 Headache Diabetes Atypical chest pain Abnormal EKG Cough Bilateral flank pain Myalgia Surgical History History of back surgery History of tonsillectomy History of cholecystectomy Family History Family History Mother Brain cancer Father No problems noted. Social History Social History Alcohol intake: former Patient Tobacco Use Status: Never used Tobacco Smoked in Last 30 Days: No Use of substances other than those prescribed or required for medical reasons: No Advance Directives: No Advance Directives Information Provided: No Physical Exam ED Vital Signs: Vital Signs - 24 hr 06/08/23 07:07 06/08/23 09:07 Temperature 97.5 F 98.1 F Pulse Rate 64 60 Respiratory Rate 16 18 Blood Pressure 144/67 H 131/79 Pulse Oximetry 98 99 Oxygen Delivery Method Room Air Room Air BMI result Body Mass Index 35.1 vss Appearance: Alert.? Oriented X3.? No acute distress.? Head: Normocephalic, atraumatic, no step-offs or deformities Eyes: Pupils equal, round and reactive to light.? CVS: Normal heart rate and rhythm.? Pulses normal.? Respiratory: No respiratory distress.? Breath sounds normal.? Abdomen: Soft and nontender.? Skin: Skin warm and dry.? Normal skin color.? Normal skin turgor.? Extremities: No lower extremity edema.? No calf ttp. 5/5 strength to bilateral upper and lower extremities Back: tenderness to palpation to L3-L4 paraspinous muscles bilaterally. No midline tenderness. No saddle paresthesias. Ambulating steady gait normal coordination. Neuro: Oriented X 3.? No motor deficit.? No sensory deficit. CN 2-12 intact Course Reevaluation(s) Reevaluation #1: CBC unremarkable. Chemistry unremarkable. UA w/o infection. CT abdomen and pelvis with no acute intra-abdominal process seen. Mild constipation. This is likely musculoskeletal in nature. Feeling better after Toradol will also order Lidoderm patches. Patient to be discharged home on same. Educated patient on diagnosis and treatment plan, answered all question, patient verbalizes understanding. At this time patient will be discharged home, advised to return with new or worsening symptoms. Educated on worrisome signs and symptoms and when to return. At this time I feel comfortable discharge home. Time: 09:31 Medications Administered Generic Name Dose Route Start Last Admin Trade Name Freq PRN Reason Stop Dose Admin Sodium Chloride 1,000 mls @ 999 mls/hr 06/08/23 09:00 06/08/23 09:05 Ns IV 06/08/23 10:00 999 mls/hr .[id number] LALO Administration Discontinued Medications Generic Name Dose Route Start Last Admin Trade Name Freq PRN Reason Stop Dose Admin Ketorolac Tromethamine 30 mg 06/08/23 08:55 06/08/23 09:04 Ketorolac Tromethamine 15 Mg/Ml Vial IVPUSH 06/08/23 08:56 30 mg ONCE ONE Administration Medical Decision Making Medical Decision Making [facility] Narrative: 0849 48-year-old male presents with bilateral flank pain for the past 9 days. Some associated urinary symptoms. On exam there is tenderness to palpation to L3-L4 paraspinous muscles bilaterally. No midline tenderness. No saddle paresthesias. Ambulating steady gait normal coordination. This is likely lumbar paraspinous spasms versus lumbago. Unlikely cauda equina, cord compression, epidural abscess, obstructing uropathy, systemic illness, kidney stones. Plan at this time fluids, Toradol, labs, imaging. Differential Diagnosis Differential Diagnoses: The differential diagnosis associated with the presentation includes This is likely lumbar paraspinous spasms versus lumbago. Unlikely cauda equina, cord compression, epidural abscess, obstructing uropathy, systemic illness, kidney stones. Admission/Observation Consideration of admission/observation: Escalation of care including admission/observation considered Lab Data MDM Lab Attestation statement: I reviewed the patient's lab results. 06/08/23 07:27 06/08/23 07:27 Labs: Lab Results 06/08/23 Range/Units 07:27 WBC 6.8 (4.8-10.8) X10*3/uL RBC 5.24 (4.60-5.80) X10*6/uL Hgb 15.4 (14.0-18.0) g/dl Hct 44.7 (42.0-52.0) % MCV 85.3 (80.0-98.0) fL MCH 29.4 (27.0-33.0) pg MCHC 34.5 (31.0-36.0) g/dl RDW 12.7 (11.0-16.0) % Plt Count 193 (160-400) X10*3/uL MPV 10.6 (9.4-12.4) fL Immature Gran % (Auto) 0.3 (0.0-0.4) % Neut % (Auto) 48.1 (45-73) % Lymph % (Auto) 39.3 (20-40) % [place] % (Auto) 8.6 (2-11) % Eos % (Auto) 2.8 (0-4) % Baso % (Auto) 0.9 (0-2) % Lymph # (Auto) 2.7 (1.2-4.9) X10*3/uL [place] # (Auto) 0.6 (0.1-1.2) X10*3/uL Eos # (Auto) 0.2 (0.0-0.4) X10*3/uL Baso # (Auto) 0.1 (0.0-0.2) X10*3/uL Abs Immat Gran (auto) 0.02 (0.00-0.03) X10*3/uL Absolute Neuts (auto) 3.3 (2.0-8.3) x10*3/uL Absolute Nucleated RBC 0.000 (0.0-0.012) X10*3/uL Nucleated RBC % (auto) 0.0 (0.0-0.2) /100WBC Sodium 138 (135-145) mmol/L Potassium 4.7 D (3.3-5.1) mmol/L Chloride 104 (96-108) mmol/L Carbon Dioxide 28 (22-29) mmol/L Anion Gap 11 L (12-20) BUN 8 L (9-16) mg/dL Creatinine 1.08 (0.5-1.4) mg/dL Estim Creat Clear Calc 90.9 Estimated GFR > 60 Random Glucose 144 H (60-115) mg/dL Calcium 9.6 (8.4-10.2) mg/dL Total Bilirubin 0.7 (0.0-1.0) mg/dL Direct Bilirubin 0.2 (0.0-0.5) mg/dL AST 31 (5-37) U/L ALT 73 H (0-40) U/L Alkaline Phosphatase 71 (39-117) U/L Total Protein 7.4 (6.5-8.0) g/dL Albumin 4.4 (3.5-5.0) g/dL Lipase 30 (8-78) U/L Urine Color Yellow Urine Appearance Clear Urine pH 5.5 (5.0-9.0) Ur Specific [place] 1.015 (1.005-1.025) Urine Protein Negative (Neg-Trace) mg/dL Urine Glucose (UA) Negative (Negative) mg/dL Urine Ketones Negative (Negative) mg/dL Urine Blood Negative (Negative) Urine Nitrite Negative (Negative) Ur Leukocyte Esterase Negative (Negative) Independent Interpretation I performed an independent interpretation of an: CT Scan Radiology Impression Discussion of test interpretation with radiology: I have reviewed the radiologist's reading. Discharge Plan Discharge Clinical Impression: Bilateral flank pain Patient Disposition: Home, Self-Care Instructions: Flank Pain (ED) Additional Instructions: Take your medications as prescribed. If you were prescribed antibiotics today, it is important that you take your medication to their entirety, do not skip any doses, do not finish them early. Follow-up with your primary care provider this week. Return to the emergency department with new or worsening symptoms. Such as fevers, chills, chest pain, shortness of breath, nausea, vomiting, dizziness, headache, vision changes, lethargy In case of emergency call 911 Toradol has been sent to your pharmacy, you tolerated this well in the department. Please take this as prescribed do not take this with ibuprofen, or other NSAIDs, do not mix this with alcohol. Side effects of this medication including increased risk for bleeding and possible kidney injury. CT/CT abdomen pelvis wo IV con IMPRESSION: No acute intra-abdominal process seen. Mild constipation. Fleischner guidelines were followed. Prescriptions: New ketorolac 10 mg tablet 10 mg PO TID PRN (Reason: pain) 5 Days Qty: 15 0RF lidocaine 5 % adhesive patch,medicated 1 patch topical DAILY PRN (Reason: pain) Qty: 15 0RF Rx Instructions: leave on most painful area for up to 12 hrs No Action cyclobenzaprine 5 mg tablet 5 mg PO TID PRN (Reason: muscle spasm) 7 Days Qty: 21 0RF naproxen 500 mg tablet 500 mg PO BID 7 Days Qty: 14 0RF benzonatate 100 mg capsule 200 mg PO TID PRN (Reason: cough) Referrals: Handy Casillas III, MD [Primary Care Provider] - 2 days Stand Alone Forms: Work/School Release
[2023-06-08] MEDS: Ketorolac Tromethamine 15 MG/ML VIAL 30 MG IVPUSH (09:04)
[2023-06-08] MEDS: 0.9 % Sodium Chloride 1,000 ML 999 ML IV (09:05)
[2023-06-08 09:07] VITALS: BP 131/79; PULSE 60; RESP 18; TEMP 36.7; O2SAT 99
[2023-06-08] MEDS: Lidocaine 4 % Patch ADH..PATCH 2 PATCH TRANSDERMA (10:05)
== END 2023-06-08 10:08 | disposition home or self-care (01) ==
PROVIDERS: Emergency Provider Emergency Medicine; PCP Internal Medicine
DX: R10.9 Unspecified abdominal pain (principal); R30.0 Dysuria; K59.00 Constipation, unspecified; Z79.899 Other long term (current) drug therapy
CPT/HCPCS: 36415; 74176; 80053; 80076; 81003; 82248; 83690; 85025; 96361; 96374; 99284; 99285; J1885

== ENCOUNTER 2023-08-10 05:12 | Emergency (ER) | payer OTHER, SELFPAY ==
[2023-08-10 05:51] LABS: COVID-19 Test Negative (Negative); IDNOW Serial# 08D9AD1C; IDNOW Serial# 152EDE1D; Influenza A Negative (Negative); Influenza B2 Negative (Negative)
[2023-08-10 05:56] VITALS: BP 143/86; PULSE 67; RESP 16; TEMP 36.4; O2SAT 96; BMI 32.9
[2023-08-10 06:10] LABS: MANUAL DIFF FLAG NO
[2023-08-10 06:16] LABS: Basophils Absolute Auto 0.1 X10*3/uL (0.0-0.2); Eosinophils Absolute Auto 0.2 X10*3/uL (0.0-0.4); Eosinophils Percent Auto 2.7 % (0-4); Hematocrit 43.7 % (42.0-52.0); Hemoglobin 15.6 g/dl (14.0-18.0); Imm Gran Abs Auto 0.02 X10*3/uL (0.00-0.03); Imm Gran Pct Auto 0.3 % (0.0-0.4); Mean Corpuscular HGB Conc 35.7 g/dl (31.0-36.0); Mean Corpuscular Hemoglobin 29.8 pg (27.0-33.0); Mean Corpuscular Volume 83.4 fL (80.0-98.0); Mean Platelet Volume 10.1 fL (9.4-12.4); Monocytes Absolute Auto 0.6 X10*3/uL (0.1-1.2); Monocytes Percent Auto 8.9 % (2-11); Neutrophils Absolute Auto 4.1 x10*3/uL (2.0-8.3); Neutrophils Percent Auto 58.1 % (45-73); Platelet Count 217 X10*3/uL (160-400); Red Blood Count 5.24 X10*6/uL (4.60-5.80); Red Cell Distribution Width 12.7 % (11.0-16.0)
[2023-08-10 06:25] LABS: Anion Gap 11 (12-20); Blood Urea Nitrogen 11 mg/dL (9-16); Calcium 9.5 mg/dL (8.4-10.2); Carbon Dioxide 27 mmol/L (22-29); Chloride 105 mmol/L (96-108); Creatinine Clr Calc Pharmacy 95.4; Estimated Glomerular Filt Rate > 60; Glucose Random 162 mg/dL (60-115); Potassium 4.2 mmol/L (3.3-5.1); Sodium 139 mmol/L (135-145)
[2023-08-10 06:26] LABS: Glucose, Whole Blood 148 mg/dL (60-115)
[2023-08-10 06:36] VITALS: BP 124/74; PULSE 59; RESP 16; TEMP 36.8; O2SAT 97
[2023-08-10 07:05] LABS: Appearance Urine Clear; Color Urine Yellow; Glucose Urine UA Negative (Negative); Leukocyte Esterase Urine Negative (Negative); Nitrite Urine Negative (Negative); PH 5.5 (5.0-9.0); Specific Gravity - Urine 1.025 (1.005-1.025); Urine Blood Negative (Negative); Urine Ketones Negative (Negative); Urine Protein Negative (Neg-Trace)
--- NOTE | 2023-08-10 07:23 | ED_ITS ---
HPI - Extremity Problem General Chief complaint: Extremity Problem Stated complaint: body pain Time Seen by Provider: 08/10/23 07:04 Source: patient, family and old records reviewed Mode of arrival: ambulatory Limitations: no limitations History of Present Illness HPI Narrative: 48 yo male with PMH of arthralgia, pre-diabetes, RICHARD, HOCM, due to see a echocardiography tech in September here with c/o diffuse joint pain x 1 week but no fevers, swelling, trauma, overuse. He notes he has pain in joints but this feels different. Unsure if he had a fever MD Complaint: joint pain Onset (ago): week(s) (1) Pain Consistency: intermittent Location: upper extremity and lower extremity Quality: aching and constant Radiation: none Relieving factors: rest Exacerbating factors: range of motion and palpation Associated symptoms: denies other symptoms Related Data Home Medications Medication Instructions Recorded Confirmed benzonatate 100 mg capsule 200 mg PO TID PRN cough 12/22/22 12/22/22 Previous Rx's Medication Instructions Recorded cyclobenzaprine 5 mg tablet 5 mg PO TID PRN muscle spasm 7 01/12/23 days #21 tabs naproxen 500 mg tablet 500 mg PO BID 7 days #14 tabs 01/12/23 ketorolac 10 mg tablet 10 mg PO TID PRN pain 5 days #15 06/08/23 tabs lidocaine 5 % topical patch 1 patch topical DAILY PRN pain #15 06/08/23 ea prednisone 20 mg tablet 20 mg PO DAILY #5 tabs 08/10/23 Allergies Allergy/AdvReac Type Severity Reaction Status Date / Time acetaminophen [Percocet] Allergy Unknown hard to Verified 06/08/23 07:07 breath oxycodone [From PERCOCET] Allergy Unknown UNKNOWN Verified 06/08/23 07:07 From PERCOCET AdvReac Unknown ANXIOUS, Uncoded 06/08/23 07:07 DID NOT FEEL GOOD Review of Systems 2 Review of Systems: Constitutional : No Fever, No Chills ENT/Mouth : No Ear Pain, No Hoarseness, No sore throat Eyes: No Eye Pain, No Swelling, No Redness, No Foreign Body Cardiovascular : No Chest Pain, No SOB Respiratory : No Cough, No Dyspnea Gastrointestinal : No Nausea, No Vomiting, No Diarrhea, No abdominal Pain Genitourinary : No Dysuria, No Hematuria Musculoskeletal : positive joint pain, No Myalgias, No Joint Swelling Skin : No Skin lacerations, No rash Neuro : No Weakness, No Numbness, No Loss of Consciousness, No Dizziness, No Headache Psych : No Anxiety/Panic, No Depression All other systems reviewed and are negative [facility] Past Medical History Attestation statement: The following information was validated with the patient. Source: old records reviewed Medical History COVID-19 Headache Diabetes Atypical chest pain Abnormal EKG Cough Bilateral flank pain Myalgia Surgical History History of back surgery History of tonsillectomy History of cholecystectomy Family History Family History Mother Brain cancer Father No problems noted. Social History Social History Alcohol intake: former Patient Tobacco Use Status: Never used Tobacco Advance Directives: No Advance Directives Information Provided: No Physical Exam 2 Vital Signs: Vital Signs: Last Vital Signs Temp 98.2 F 08/10/23 06:36 Pulse 59 08/10/23 06:36 Resp 16 08/10/23 06:36 BP 124/74 08/10/23 06:36 Pulse Ox 97 08/10/23 06:36 O2 Del Method Room Air 08/10/23 06:36 BMI result Body Mass Index 32.9 Appearance: Alert. Oriented X3. No acute distress. Eyes: Pupils equal, round and reactive to light. ENT: Pharynx normal. Neck: Normal inspection. Neck supple. CVS: Normal heart rate and rhythm. Pulses normal. Respiratory: No respiratory distress. Breath sounds normal. Abdomen: Soft and nontender. Skin: Skin warm and dry. Normal skin color. Normal skin turgor. Extremities: No lower extremity edema. No calf ttp no joint swelling Neuro: Oriented X 3. No motor deficit. No sensory deficit. Medical Decision Making Medical Decision Making [facility] Narrative: 48 yo male with PMH of arthralgia, pre-diabetes, RICHARD, HOCM here with c/o diffuse joint pain and aches but no swelling - distal NV intact no erythema or rash noted no signs of septic joint. At this time will need basic labs, CPK, viral panel. If negative will start low dose prednisone with warning about blood sugar control Differential Diagnosis Differential Diagnoses: The differential diagnosis associated with the presentation includes viral panel, blood sugar control Admission/Observation Consideration of admission/observation: Escalation of care including admission/observation considered labs reassuring has good outpatient care Lab Data MDM Lab Attestation statement: I reviewed the patient's lab results. 08/10/23 06:03 08/10/23 06:03 Labs: Lab Results 08/10/23 08/10/23 08/10/23 Range/Units 05:20 05:27 06:03 WBC 7.0 (4.8-10.8) X10*3/uL RBC 5.24 (4.60-5.80) X10*6/uL Hgb 15.6 (14.0-18.0) g/dl Hct 43.7 (42.0-52.0) % MCV 83.4 (80.0-98.0) fL MCH 29.8 (27.0-33.0) pg MCHC 35.7 (31.0-36.0) g/dl RDW 12.7 (11.0-16.0) % Plt Count 217 (160-400) X10*3/uL MPV 10.1 (9.4-12.4) fL Immature Gran % (Auto) 0.3 (0.0-0.4) % Neut % (Auto) 58.1 (45-73) % Lymph % (Auto) 29.0 (20-40) % [place] % (Auto) 8.9 (2-11) % Eos % (Auto) 2.7 (0-4) % Baso % (Auto) 1.0 (0-2) % Lymph # (Auto) 2.0 (1.2-4.9) X10*3/uL [place] # (Auto) 0.6 (0.1-1.2) X10*3/uL Eos # (Auto) 0.2 (0.0-0.4) X10*3/uL Baso # (Auto) 0.1 (0.0-0.2) X10*3/uL Abs Immat Gran (auto) 0.02 (0.00-0.03) X10*3/uL Absolute Neuts (auto) 4.1 (2.0-8.3) x10*3/uL Absolute Nucleated RBC 0.000 (0.0-0.012) X10*3/uL Nucleated RBC % (auto) 0.0 (0.0-0.2) /100WBC Sodium 139 (135-145) mmol/L Potassium 4.2 (3.3-5.1) mmol/L Chloride 105 (96-108) mmol/L Carbon Dioxide 27 (22-29) mmol/L Anion Gap 11 L (12-20) BUN 11 (9-16) mg/dL Creatinine 1.03 (0.5-1.4) mg/dL Estim Creat Clear Calc 95.4 Estimated GFR > 60 POC Glucose 148 H (60-115) mg/dL Random Glucose 162 H (60-115) mg/dL Calcium 9.5 (8.4-10.2) mg/dL Total Creatine Kinase 121 (38-174) U/L Urine Color Urine Appearance Urine pH (5.0-9.0) Ur Specific [place] (1.005-1.025) Urine Protein (Neg-Trace) mg/dL Urine Glucose (UA) (Negative) mg/dL Urine Ketones (Negative) mg/dL Urine Blood (Negative) Urine Nitrite (Negative) Ur Leukocyte Esterase (Negative) COVID-19 (REZA) Negative (Negative) COVID-19 Clin Com See Note Influenza Type A (YVONNE) Negative (Negative) Influenza Type B (YVONNE) Negative (Negative) Influenza A & B Note See Note 08/10/23 Range/Units 06:59 WBC (4.8-10.8) X10*3/uL RBC (4.60-5.80) X10*6/uL Hgb (14.0-18.0) g/dl Hct (42.0-52.0) % MCV (80.0-98.0) fL MCH (27.0-33.0) pg MCHC (31.0-36.0) g/dl RDW (11.0-16.0) % Plt Count (160-400) X10*3/uL MPV (9.4-12.4) fL Immature Gran % (Auto) (0.0-0.4) % Neut % (Auto) (45-73) % Lymph % (Auto) (20-40) % [place] % (Auto) (2-11) % Eos % (Auto) (0-4) % Baso % (Auto) (0-2) % Lymph # (Auto) (1.2-4.9) X10*3/uL [place] # (Auto) (0.1-1.2) X10*3/uL Eos # (Auto) (0.0-0.4) X10*3/uL Baso # (Auto) (0.0-0.2) X10*3/uL Abs Immat Gran (auto) (0.00-0.03) X10*3/uL Absolute Neuts (auto) (2.0-8.3) x10*3/uL Absolute Nucleated RBC (0.0-0.012) X10*3/uL Nucleated RBC % (auto) (0.0-0.2) /100WBC Sodium (135-145) mmol/L Potassium (3.3-5.1) mmol/L Chloride (96-108) mmol/L Carbon Dioxide (22-29) mmol/L Anion Gap (12-20) BUN (9-16) mg/dL Creatinine (0.5-1.4) mg/dL Estim Creat Clear Calc Estimated GFR POC Glucose (60-115) mg/dL Random Glucose (60-115) mg/dL Calcium (8.4-10.2) mg/dL Total Creatine Kinase (38-174) U/L Urine Color Yellow Urine Appearance Clear Urine pH 5.5 (5.0-9.0) Ur Specific [place] 1.025 (1.005-1.025) Urine Protein Negative (Neg-Trace) mg/dL Urine Glucose (UA) Negative (Negative) mg/dL Urine Ketones Negative (Negative) mg/dL Urine Blood Negative (Negative) Urine Nitrite Negative (Negative) Ur Leukocyte Esterase Negative (Negative) COVID-19 (REZA) (Negative) COVID-19 Clin Com Influenza Type A (YVONNE) (Negative) Influenza Type B (YVONNE) (Negative) Influenza A & B Note Independent Historian Clinical information obtained from an independent historian. History obtained from or confirmed by: Spouse External Record Review External record reviewed: Inpatient record Prescription Management I considered prescription management with: Other Discharge Plan Discharge Clinical Impression: Polyarthralgia Patient Disposition: Home, Self-Care Instructions: Arthralgia (ED) Additional Instructions: return for fevers, worsening pain, no improvement or any other concerns. monitor blood sugars while on prednisone Regrese por fiebre, empeoramiento del dolor, ausencia de mejor?a o cualquier otra inquietud. controlar el nivel de az?car en la adrianne mientras bella prednisona Prescriptions: New prednisone 20 mg tablet 20 mg PO DAILY Qty: 5 0RF No Action cyclobenzaprine 5 mg tablet 5 mg PO TID PRN (Reason: muscle spasm) 7 Days Qty: 21 0RF naproxen 500 mg tablet 500 mg PO BID 7 Days Qty: 14 0RF ketorolac 10 mg tablet 10 mg PO TID PRN (Reason: pain) 5 Days Qty: 15 0RF lidocaine 5 % adhesive patch,medicated 1 patch topical DAILY PRN (Reason: pain) Qty: 15 0RF Rx Instructions: leave on most painful area for up to 12 hrs benzonatate 100 mg capsule 200 mg PO TID PRN (Reason: cough) Print Language: Divehi
== END 2023-08-10 08:30 | disposition home or self-care (01) ==
PROVIDERS: Emergency Provider Emergency Medicine; PCP Internal Medicine
DX: M25.549 Pain in joints of unspecified hand (principal); M79.605 Pain in left leg; M79.604 Pain in right leg; Z11.52 Encounter for screening for COVID-19; Z79.899 Other long term (current) drug therapy
CPT/HCPCS: 36415; 80048; 81003; 82550; 82947; 85025; 87502; 87635; 99283; 99284

== ENCOUNTER → 2023-08-11 09:09 | Outpatient (REF) | payer OTHER, SELFPAY | LOC: HO.SL 09:09 | PROVIDERS: PCP Internal Medicine; Visit Provider Nurse Practitioner Family | DX: G47.33 Obstructive sleep apnea (adult) (pediatric) (principal); G47.19 Other hypersomnia | CPT/HCPCS: 95806 ==

== ENCOUNTER → 2023-08-11 09:30 | Outpatient (BNV) | payer OTHER, SELFPAY | PROVIDERS: PCP Internal Medicine; Visit Provider Psychiatry & Neurology Neurology | DX: G47.33 Obstructive sleep apnea (adult) (pediatric) (principal) | CPT/HCPCS: 95806 ==

== ENCOUNTER 2023-08-16 19:34 | Emergency (ER) | payer OTHER, SELFPAY ==
--- NOTE | ~2023-08-16 | XR_ITS ---
EXAMINATION: XR CHEST CLINICAL INFORMATION: Chest pain. COMPARISON: Chest radiograph dated 05/16/2022. TECHNIQUE: 2 views of the chest were obtained. FINDINGS: Heart size remains normal. Both lungs are clear. There is no pleural effusion or pneumothorax. No acute osseous abnormality. There are surgical clips within the right upper quadrant. XR/XR chest 2V IMPRESSION: No acute cardiopulmonary disease.
--- NOTE | 2023-08-16 19:36 | ECG_ITS ---
Test Reason : CP/BODY PAIN Blood Pressure : / mmHG Vent. Rate : 075 BPM Atrial Rate : 075 BPM P-R Int : 146 ms QRS Dur : 082 ms QT Int : 388 ms P-R-T Axes : 055 013 163 degrees QTc Int : 433 ms Normal sinus rhythm ST & T wave abnormality, consider anterolateral ischemia Abnormal ECG When compared with ECG of 02-SEP-2022 00:36, No significant change was found Referred By: Sabine Harkins Electronically Signed By:Jay Stroud
[2023-08-16 19:51] LABS: MANUAL DIFF FLAG NO
[2023-08-16 19:52] LABS: Basophils Absolute Auto 0.1 X10*3/uL (0.0-0.2); Basophils Percent Auto 0.8 % (0-2); Eosinophils Absolute Auto 0.1 X10*3/uL (0.0-0.4); Eosinophils Percent Auto 1.6 % (0-4); Hematocrit 42.5 % (42.0-52.0); Imm Gran Abs Auto 0.02 X10*3/uL (0.00-0.03); Imm Gran Pct Auto 0.2 % (0.0-0.4); Lymphocytes Absolute Auto 3.1 X10*3/uL (1.2-4.9); Lymphocytes Percent Auto 35.8 % (20-40); Mean Corpuscular HGB Conc 35.3 g/dl (31.0-36.0); Mean Corpuscular Hemoglobin 29.6 pg (27.0-33.0); Mean Corpuscular Volume 83.8 fL (80.0-98.0); Mean Platelet Volume 10.1 fL (9.4-12.4); Monocytes Absolute Auto 0.6 X10*3/uL (0.1-1.2); Monocytes Percent Auto 7.1 % (2-11); Neutrophils Absolute Auto 4.6 x10*3/uL (2.0-8.3); Neutrophils Percent Auto 54.5 % (45-73); Platelet Count 198 X10*3/uL (160-400); Red Blood Count 5.07 X10*6/uL (4.60-5.80); White Blood Count 8.5 X10*3/uL (4.8-10.8)
[2023-08-16 19:54] VITALS: BP 152/93; PULSE 82; RESP 16; TEMP 36.3; O2SAT 98; BMI 34.9
--- NOTE | 2023-08-16 19:54 | ED_ITS ---
HPI - Chest Pain General Chief Complaint: Dizziness Stated Complaint: chest pain Time Seen by Provider: 08/16/23 19:50 Source: patient Mode of arrival: ambulatory Limitations: no limitations History of Present Illness HPI narrative: patient presents with fatigue and weakness with left sided chest pain. He states that he has a history of heart disease but can not give details complaint: chest pain Onset (ago): minute(s) Timing of current episode: constant Associated symptoms: other (weakness) Risk Factors Coronary artery disease risk factors: hyperlipidemia and hypertension Related Data Home Medications Medication Instructions Recorded Confirmed benzonatate 100 mg capsule 200 mg PO TID PRN cough 12/22/22 12/22/22 Previous Rx's Medication Instructions Recorded cyclobenzaprine 5 mg tablet 5 mg PO TID PRN muscle spasm 7 01/12/23 days #21 tabs naproxen 500 mg tablet 500 mg PO BID 7 days #14 tabs 01/12/23 ketorolac 10 mg tablet 10 mg PO TID PRN pain 5 days #15 06/08/23 tabs lidocaine 5 % topical patch 1 patch topical DAILY PRN pain #15 06/08/23 ea prednisone 20 mg tablet 20 mg PO DAILY #5 tabs 08/10/23 Allergies Allergy/AdvReac Type Severity Reaction Status Date / Time oxycodone [From PERCOCET] Allergy Intermediate Shortness Verified 08/16/23 19:53 of Breath Review of Systems 2 Review of Systems: Yes all other systems are reviewed and are negative Neurologic: Denies Sensory deficit (Neuro) PMFSH Past Medical History Medical History COVID-19 Headache Diabetes Atypical chest pain Abnormal EKG Cough Bilateral flank pain Myalgia Surgical History History of back surgery History of tonsillectomy History of cholecystectomy Family History Family History Mother Brain cancer Father No problems noted. Social History Social History Alcohol intake: former Patient Tobacco Use Status: Never used Tobacco Smoked in Last 30 Days: No Advance Directives: No Advance Directives Information Provided: No Physical Exam 2 Vital Signs: Vital Signs: Last Vital Signs Temp 98.2 F 08/16/23 21:54 Pulse 68 08/16/23 21:54 Resp 17 08/16/23 21:54 BP 122/62 08/16/23 21:33 Pulse Ox 95 08/16/23 21:54 O2 Del Method Room Air 08/16/23 21:54 BMI result Body Mass Index 34.9 Const: General: healthy appearing Nutritional Appearance: average body habitus Orientation/consciousness: oriented to person and patient oriented x3 Limitations: no limitations HEENT: Head: Yes normal to inspection Ears: external ears normal General nose exam: Normal external nose present Mouth: Normal oral and palatal mucosa present and oropharynx normal Throat: Yes posterior oropharynx normal Eyes: General: appearance normal, both eyes and all related structures Neck: Other: supple Neck: Yes normal visual inspection Chest: Chest palpation & inspection: normal inspection of the chest Resp: Auscultation: clear to auscultation bilaterally Cardio: Jugular venous distension: no JVD Rate: regular rate Rhythm: r egular rhythm Heart sounds: S1 normal heart sound present and S2 normal heart sound present GI: Inspection: Yes normal to inspection Palpation (GI): Soft to palpation, nontender and No hepatosplenomegaly present Auscultation: normal bowel sounds : General: Yes no CVA tenderness Back/Spine/Pelvis: Back: no CVA tenderness Skin: General skin exam: no rashes or lesions noted Neuro: General: oriented to person and patient oriented x3 Cranial nerves: Yes CN's II-XII intact bilaterally Motor exam (neuro): 5/5 motor strength present throughout Sensory Exam: No Sensory deficit (Neuro) Extrem: General: Yes normal to inspection Psych: Appearance: grossly normal Course Reevaluation(s) Reevaluation #1: patient presents with weakness and chest pain and a very abnormal eKG. On review of his past he has had this before, he has a hypertrophic cardiomyopathy. No history of CAD, he is followed closely by cardiology. If troponing remains flat with dc home Time: 21:27 Medications Administered Discontinued Medications Generic Name Dose Route Start Last Admin Trade Name Freq PRN Reason Stop Dose Admin Aspirin 325 mg 08/16/23 19:54 08/16/23 20:03 Aspirin Enteric Coated 325 Mg Tablet.Dr NEWMAN 08/16/23 19:55 325 mg ONCE ONE Administration Medical Decision Making Differential Diagnosis Differential Diagnoses: The differential diagnosis associated with the presentation includes (CAD, STEMI, chf were all considered) Admission/Observation Consideration of admission/observation: Escalation of care including admission/observation considered (upon arrival patient was considered for admission) Lab Data 08/16/23 19:46 08/16/23 19:46 Labs: Lab Results 08/16/23 08/16/23 Range/Units 19:46 19:55 WBC 8.5 (4.8-10.8) X10*3/uL RBC 5.07 (4.60-5.80) X10*6/uL Hgb 15.0 (14.0-18.0) g/dl Hct 42.5 (42.0-52.0) % MCV 83.8 (80.0-98.0) fL MCH 29.6 (27.0-33.0) pg MCHC 35.3 (31.0-36.0) g/dl RDW 13.0 (11.0-16.0) % Plt Count 198 (160-400) X10*3/uL MPV 10.1 (9.4-12.4) fL Immature Gran % (Auto) 0.2 (0.0-0.4) % Neut % (Auto) 54.5 (45-73) % Lymph % (Auto) 35.8 (20-40) % Vance % (Auto) 7.1 (2-11) % Eos % (Auto) 1.6 (0-4) % Baso % (Auto) 0.8 (0-2) % Lymph # (Auto) 3.1 (1.2-4.9) X10*3/uL Vance # (Auto) 0.6 (0.1-1.2) X10*3/uL Eos # (Auto) 0.1 (0.0-0.4) X10*3/uL Baso # (Auto) 0.1 (0.0-0.2) X10*3/uL Abs Immat Gran (auto) 0.02 (0.00-0.03) X10*3/uL Absolute Neuts (auto) 4.6 (2.0-8.3) x10*3/uL Absolute Nucleated RBC 0.000 (0.0-0.012) X10*3/uL Nucleated RBC % (auto) 0.0 (0.0-0.2) /100WBC Sodium 141 (135-145) mmol/L Potassium 3.7 (3.3-5.1) mmol/L Chloride 103 (96-108) mmol/L Carbon Dioxide 31 H (22-29) mmol/L Anion Gap 11 L (12-20) BUN 15 (9-16) mg/dL Creatinine 1.13 (0.5-1.4) mg/dL Estim Creat Clear Calc 89.5 Estimated GFR > 60 POC Glucose 105 (60-115) mg/dL Random Glucose 99 (60-115) mg/dL Calcium 9.9 (8.4-10.2) mg/dL Magnesium 2.2 (1.6-2.6) mg/dL Total Bilirubin 0.8 (0.0-1.0) mg/dL Direct Bilirubin 0.3 (0.0-0.5) mg/dL AST 26 (5-37) U/L ALT 54 H (0-40) U/L Alkaline Phosphatase 79 (39-117) U/L Troponin I High Sens 13.2 D (<3.5-35.0) ng/L Total Protein 7.6 (6.5-8.0) g/dL Albumin 4.4 (3.5-5.0) g/dL Lipase 37 (8-78) U/L Influenza Type A (PCR) NEGATIVE (Negative) Influenza Type B (PCR) NEGATIVE (Negative) RSV RNA Qual (PCR) NEGATIVE (Negative) SARS-CoV-2 RNA (RT-PCR) NEGATIVE (Negative) Independent Interpretation I performed an independent interpretation of an: EKG (sinus 75, flipped ts I and AVL, V3-V6 unchanged from prior) Independent Historian Clinical information obtained from an independent historian. History obtained from or confirmed by: Spouse and Other (daughter) External Record Review External record reviewed: Outpatient record and Prior outpatient labs Chronic Conditions Patient?s care impacted by: Other (hypertrophic cardiomyopathy) Discharge Plan Discharge Clinical Impression: Weakness, Cardiomyopathy Patient Disposition: Still a Patient Instructions: Weakness (ED) Prescriptions: No Action cyclobenzaprine 5 mg tablet 5 mg PO TID PRN (Reason: muscle spasm) 7 Days Qty: 21 0RF naproxen 500 mg tablet 500 mg PO BID 7 Days Qty: 14 0RF ketorolac 10 mg tablet 10 mg PO TID PRN (Reason: pain) 5 Days Qty: 15 0RF lidocaine 5 % adhesive patch,medicated 1 patch topical DAILY PRN (Reason: pain) Qty: 15 0RF Rx Instructions: leave on most painful area for up to 12 hrs prednisone 20 mg tablet 20 mg PO DAILY Qty: 5 0RF benzonatate 100 mg capsule 200 mg PO TID PRN (Reason: cough) Referrals: José Antonio Bajwa MD [Physician] - 5 days
--- NOTE | 2023-08-16 19:54 | MHC.EDTECH ---
Patient was brought into triage area,EKG taken per order and signed by provider,labs obtained and sent to lab, Patient brought to ED Room 4
[2023-08-16 19:59] LABS: Glucose, Whole Blood 105 mg/dL (60-115)
[2023-08-16] MEDS: Aspirin Enteric Coated 325 MG TABLET.DR PO (20:03)
[2023-08-16 20:08] LABS: Alanine Aminotransferase 54 U/L (0-40); Albumin Level 4.4 g/dL (3.5-5.0); Alkaline Phosphatase 79 U/L (39-117); Anion Gap 11 (12-20); Aspartate Amino Transferase 26 U/L (5-37); Bilirubin Direct 0.3 mg/dL (0.0-0.5); Bilirubin Total 0.8 mg/dL (0.0-1.0); Blood Urea Nitrogen 15 mg/dL (9-16); Calcium 9.9 mg/dL (8.4-10.2); Carbon Dioxide 31 mmol/L (22-29); Chloride 103 mmol/L (96-108); Creatinine Clr Calc Pharmacy 89.5; Estimated Glomerular Filt Rate > 60; Glucose Random 99 mg/dL (60-115); Lipase 37 U/L (8-78); Magnesium 2.2 mg/dL (1.6-2.6); Potassium 3.7 mmol/L (3.3-5.1); Sodium 141 mmol/L (135-145); Total Protein 7.6 g/dL (6.5-8.0)
[2023-08-16 20:15] LABS: Troponin-I High Sensitivity 13.2 ng/L (<3.5-35.0)
[2023-08-16 20:29] LABS: Influenza A PCR NEGATIVE (Negative); Influenza B PCR NEGATIVE (Negative); Resp Syncy Virus RNA Qual PCR NEGATIVE (Negative); SARS COV2 PCR INHOUSE NEGATIVE (Negative)
[2023-08-16 21:33] VITALS: BP 122/62; PULSE 71; O2SAT 97
[2023-08-16 21:54] VITALS: PULSE 68; RESP 17; TEMP 36.8; O2SAT 95
[2023-08-16 22:06] LABS: Troponin-I High Sensitivity 14.1 ng/L (<3.5-35.0)
== END 2023-08-16 23:37 | disposition home or self-care (01) ==
PROVIDERS: Physician Assistant Medical; Emergency Provider Emergency Medicine
DX: R53.1 Weakness (principal); I42.9 Cardiomyopathy, unspecified; E11.9 Type 2 diabetes mellitus without complications; Z11.52 Encounter for screening for COVID-19; Z20.828 Contact with and (suspected) exposure to other viral communicable diseases
CPT/HCPCS: 0241U; 36415; 71046; 80053; 82248; 82947; 83690; 83735; 84484; 85025; 93005; 99283; 99284

== ENCOUNTER → 2023-08-16 19:36 | Outpatient (BNV) | payer OTHER, SELFPAY | PROVIDERS: Emergency Provider Emergency Medicine; Visit Provider Internal Medicine Cardiovascular Disease | DX: R94.31 Abnormal electrocardiogram [ECG] [EKG] (principal); R07.9 Chest pain, unspecified | CPT/HCPCS: 93010 ==

== ENCOUNTER 2023-08-23 15:06 | Outpatient (AMB) | payer OTHER, SELFPAY ==
[2023-08-23 15:56] VITALS: BP 122/78; PULSE 67; BMI 35.4
--- NOTE | 2023-08-23 15:56 | MHC.OFFVIS ---
Intake Vital Signs 08/23/23 15:56 Height 5 ft 7 in Weight 226 lb BMI 35.4 BP 122/78 Blood Pressure Location Lt brachial Position Sitting Pulse 67 Intake Visit Reasons: [facility]/Chest pain/3-4 ([facility]) Intake Note: follow up after [facility] chest pain Allergies oxycodone [From PERCOCET] Allergy (Intermediate, Verified 08/16/23 19:53) Shortness of Breath Medication List - Last Reconciled 08/23/23 by Karen Ram NP-C benzonatate 200 mg PO TID PRN cyclobenzaprine 5 mg PO TID PRN 7 days ketorolac 10 mg PO TID PRN 5 days lidocaine 5% 1 patch topical DAILY PRN naproxen 500 mg PO BID 7 days HPI [facility]/Chest pain/3-4 ([facility]) HPI Alfredo Corey is a 48-year-old male with past medical history of diabetes, mild obesity, abnormal EKG, untreated sleep apnea, hypertrophic cardiomyopathy who presents for follow-up after recent ER evaluation for chest discomfort. Today he reports that he went to the emergency room because he had discomfort across his upper back and into his arms and over his shoulder into his left chest. He denies any physical activity that could have caused this type of symptom. He ruled out for ACS. His EKG was unchanged. His symptom has improved. He denies any exertional chest discomfort. No concerning shortness of breath. He does only light physical activities. No lightheadedness, presyncope, syncope, falls. Occasional heart palpitations. On no cardiac meds. [facility] Medical History (Updated 08/23/23 @ 17:33 by Karen Ram, DELIA-C) Atypical chest pain COVID-19 Headache Diabetes Abnormal EKG Cough Bilateral flank pain Myalgia Surgical History History of back surgery History of tonsillectomy History of cholecystectomy Family History Mother Brain cancer Father No problems noted. Social History Alcohol intake: former Patient Tobacco Use Status: Never used Tobacco Review of Systems Const All systems reviewed & are unremarkable except as noted in HPI and below Denies weakness ENT Denies dizziness Card Denies chest pain, Denies chest pain with activity, Denies syncope, Denies rapid heart rate, Denies pedal edema, Denies edema, Denies leg edema, Denies lightheadedness, Denies palpitations, Denies dyspnea, Denies dyspnea on exertion and Denies orthopnea Resp Denies cough, Denies dyspnea and Denies dyspnea on exertion GI Denies hematochezia and Denies change in stool character Musc Details: upper back and arm discomfort, radiation to left upper chest recently Denies abnormal gait, Denies muscle cramps, Denies muscle weakness, Denies numbness, Denies radiating pain into limb and Denies tingling Neuro Denies abnormal gait, Denies dizziness, Denies syncope, Denies numbness, Denies tingling and Denies weakness Endo Denies palpitations Physical Exam Vital Signs: Last Vital Signs Pulse 67 08/23/23 15:56 BP 122/78 08/23/23 15:56 BMI result Body Mass Index 35.4 Const General: cooperative, healthy appearing, comfortable and no acute distress Orientation/consciousness: patient oriented x3 Neck Neck: Yes normal visual inspection Resp Effort & Inspection: normal respiratory effort Auscultation: clear to auscultation bilaterally, no rales, no rhonchi and no wheezes Cardio Jugular venous distension: no JVD Rate: regular rate Rhythm: regular rhythm Heart sounds: S1 normal heart sound present, S2 normal heart sound present, no murmurs and no rubs Neuro General: patient oriented x3 Extrem General: Yes normal to inspection, No no pedal edema and No calf tenderness Psych Appearance: grossly normal Mental Status: mental status grossly normal Speech and movement: Normal speech and movement present Assessment & Plan Assessment & Plan (1) HOCM (hypertrophic obstructive cardiomyopathy): Code(s): I42.1 - Obstructive hypertrophic cardiomyopathy Plan: Echocardiogram done 04/02/2022 showed EF 64%, moderate asymmetrical septal hypertrophy, mid inferior lateral segments hypokinetic. An exercise stress test done 04/02/2022 showed good exercise tolerance, no EKG changes of ischemia and normal myocardial perfusion imaging. He then had a cardiac MRI at [facility] on 06/26/2022 showing basal septum thickened at 1.8 cm, mildly thickened apex, findings suggesting hypertrophic cardiomyopathy, mild narrowing of the LVOT demonstrating turbulent flow signal, EF 52%. A Holter monitor showed sinus rhythm with average heart rate 73, no significant arrhythmias. 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 Based on the above information he was not felt to have high risk findings. No medications were started. At this time he continues to feel well overall. He does report some atypical sounding chest discomfort today which seems more chest wall in nature. Will feel occasional heart palpitations. He is anxious about his condition. Will check a Holter monitor to reassess for any arrhythmia. Cardiology follow-up 6 months, sooner if needed will update echo prior to that visit. (2) Atypical chest pain: Code(s): R07.89 - Other chest pain Plan: Report of atypical chest discomfort occurring in the setting back and arm discomfort which sounds most likely musculoskeletal related based on his description. He was seen in the emergency room. His troponins were normal. EKG showed no significant changes compared to prior. Plan Time spent on chart review, documentation, interview and assessment Orders: Orders ECG 3 day holter monitor Today I42.1 - Obstructive hypertrophic cardiomyopathy Coding Level of Care Code Est Pt Level 4 (65033) Diagnoses HOCM (hypertrophic obstructive cardiomyopathy) I42.1 Atypical chest pain R07.89 Time Spent (min) 30
== END 2023-08-23 16:25 | disposition home or self-care (01) ==
PROVIDERS: Visit Provider Nurse Practitioner Family
DX: I42.1 Obstructive hypertrophic cardiomyopathy (principal); R07.89 Other chest pain
CPT/HCPCS: 99214

== ENCOUNTER → 2023-08-23 15:06 | Outpatient (BNVA) | payer OTHER, SELFPAY | PROVIDERS: Visit Provider Nurse Practitioner Family | DX: I42.1 Obstructive hypertrophic cardiomyopathy (principal); R07.89 Other chest pain | CPT/HCPCS: 99212 ==

== ENCOUNTER → 2023-09-08 11:23 | Outpatient (REF) | payer OTHER, SELFPAY ==
--- NOTE | 2023-09-08 11:27 | HM_ITS ---
* Total monitoring time 3 days. * Underlying rhythm is sinus with an average rate of 72/Min. Range 49 to 133/Min. * Rare supraventricular and ventricular ectopy. * No sustained arrhythmias. * No significant pauses or AV blocks. * No patient markers or diary events. MTDD
== END ==
LOC: HO.CARD 11:23
PROVIDERS: Visit Provider Nurse Practitioner Family
DX: I42.1 Obstructive hypertrophic cardiomyopathy (principal)
CPT/HCPCS: 93242

== ENCOUNTER → 2023-09-08 11:27 | Outpatient (BNV) | payer OTHER, SELFPAY | PROVIDERS: Visit Provider Internal Medicine | DX: I42.1 Obstructive hypertrophic cardiomyopathy (principal); R00.1 Bradycardia, unspecified | CPT/HCPCS: 93244 ==

== ENCOUNTER → 2023-12-09 12:55 | Outpatient (REF) | payer OTHER, SELFPAY ==
--- NOTE | 2023-12-09 12:57 | CA_ITS ---
Transthoracic Echocardiogram Patient (Last, First, Middle): Madhav Bear, Gender: Male Date of : 1975 Age: 48 Procedure Date: 12/09/2023 Procedure Type: Transthoracic Echocardiogram Location: OP Height: 170.18 cm Weight: 95.71 kg BSA: 2.07 m2 Heart Rate: bpm BP: 118 / 70 mmHg Mower Sharpener: DWAINE Referring MD: José Antonio Bajwa MD Interventionist: Julio C Samuels MD Symptoms: I42.1 - Obstructive hypertrophic cardiomyopathy Study Quality: Adequate ECG Rhythm: Sinus Conclusions: - 1. Normal LV ejection fraction 60 65% 2. Normal cardiac valvular Doppler 3. Mild asymmetric septal hypertrophy without obstructive physiology 4. Normal RV systolic pressure 5. No gross pericardial effusion Findings Left Ventricle Normal left ventricular size, thickness, and systolic function. The visually estimated ejection fraction is between 60-65%. There is no evidence of regional wall motion abnormalities. There is no dynamic left ventricular outflow tract obstruction. Spectral Doppler is indicative of a normal filling pattern. There is mild septal asymmetric hypertrophy. Peak GLS is 17.6%, borderline normal Right Ventricle Normal right ventricular cavity size and systolic function. Atria Both atria are normal in size. There is no evidence of interatrial shunt. Aortic Valve Normal aortic valve structure and function. There is no aortic valve stenosis. There is no aortic valve regurgitation. Mitral Valve Normal mitral valve structure and function. There is trace mitral valve regurgitation. There is no mitral valve stenosis. Pulmonic Valve The pulmonic valve is likely normal. Tricuspid Valve Likely normal tricuspid valve structure and function. There is trace tricuspid valve regurgitation. The right ventricular systolic pressure is normal. The right ventricular systolic pressure is 28 mmHg. Normal right atrial pressure. There is no evidence of pulmonary hypertension. Great Vessels The pulmonary artery was not well visualized. There is no dilatation of the ascending aorta measuring 3.30 cm. Venous The inferior vena cava is normal in size and collapses greater than 50% with inspiration. Pericardium/Pleural There is no evidence of pericardial effusion. Prior Study Comparison No significant change compared to prior study dated: 04/02/2022. Measurements 2D Linear Measurements IVSd: 1.30 0.6-0.9/0.6-1.0 cm LVIDd: 4.49 3.9-5.3/4.2-5.9 cm LVIDd Index: 2.17 2.4-3.2/2.2-3.1 cm/m2 LVIDs: 3.01 2.0-3.6 cm LVPWd: 0.94 0.7-1.1 cm LA Diam: 3.10 2.7-3.8/3.0-4.0 cm LAIDs Index: 1.50 1.5-2.3 cm/m2 LV Mass: 222.45 67-162/88-224 g LV Mass Index: 107.46 43-95/49-115 g/m2 LVOT Diam: 2.10 3.0+(-)1.3 cm 2D Systolic Function EF 4C: 64.80 >55% EF 2C: 64.10 >55% EF BiP: 62.60 >55% Mitral Valve MV Pk E: 1.17 MV PK A: 0.83 MV Decel Time: 220.00 E/A: 1.40 E'Lateral: 11.50 E'Medial: 6.42 E/E' Med: 18.20 E/E' Lat: 10.20 PHT: 64.00 MVA PHT: 3.44 Decel Alcorn: 5.33 Aortic Valve AoV Pk Alfredito: 2.00 AoV Mn Alfredito: 1.29 AoV VTI: 0.37 AoV Pk Grad: 16.00 Aov Mn Grad: 8.00 PAMELLA Cont.VTI: 2.63 LVOT LVOT Pk Alfredito: 1.60 LVOT Mn Alfredito: 0.98 LVOT VTI: 0.28 LVOT Pk Grad: 10.00 LVOT Mn Grad: 5.00 LVOT Diam: 2.10 LVOT Area: 3.46 Diastolic Function MV Pk E: 1.17 MV Pk A: 0.83 E/A: 1.40 E'Medial: 6.42 E/E' Med: 18.20 E' Laterial: 11.50 E/E' Lat: 10.20 Right Ventricle TAPSE (mm): 20.80 TVS' Alfredito: 12.00 Tricuspid Valve TR Pk Alfredito: 2.51 TR Pk Grad: 25.00 RA Press: 3.00 RVSP: 28.00 Great Vessels Aorta Sinus of Valsalva: 3.09 2.0-3.5 cm Ao Asc: 3.30 2.1-3.4 cm Ao Arch: 2.60 Updated in Other Vendor System with Status of Final Julio C Samuels MD electronically signed on 12/10/2023 12:53:44 PM with status of Final
== END ==
LOC: HO.CARD 12:55
PROVIDERS: PCP Internal Medicine; Visit Provider Internal Medicine
DX: I42.1 Obstructive hypertrophic cardiomyopathy (principal)
CPT/HCPCS: 93306

== ENCOUNTER → 2023-12-09 12:57 | Outpatient (BNV) | payer OTHER, SELFPAY | PROVIDERS: PCP Internal Medicine; Visit Provider Internal Medicine Cardiovascular Disease | DX: I42.2 Other hypertrophic cardiomyopathy (principal) | CPT/HCPCS: 93306; 93356 ==

== ENCOUNTER 2024-02-24 08:27 | Outpatient (AMB) | payer OTHER, SELFPAY ==
[2024-02-24 08:32] VITALS: BP 130/64; PULSE 62; BMI 33.0
--- NOTE | 2024-02-24 08:32 | A.OFFVIS_ITS ---
Vital Signs 02/24/24 08:32 Height 5 ft 7 in Weight 210 lb 12.191 oz BMI 33.0 BP 130/64 Blood Pressure Location Lt brachial Position Sitting Pulse 62 Pulse Source Pulse Oximeter Intake Visit Reasons: 6 mth f/up Service Desk Associate Required: No Accompanied by: Self / Same As Patient Allergies oxycodone [From PERCOCET] Allergy (Intermediate, Verified 08/16/23 19:53) Shortness of Breath Medication List - Last Reconciled 02/24/24 by José Antonio Bajwa MD benzonatate 200 mg PO TID PRN cyclobenzaprine 5 mg PO TID PRN 7 days ketorolac 10 mg PO TID PRN 5 days lidocaine 5% 1 patch topical DAILY PRN naproxen 500 mg PO BID 7 days HPI Comments Details: Madhav returns for follow-up. He was seen regarding abnormal EKG. He had some atypical sounding chest pain that led to further workup. Underwent echocardiogram, stress test as well as cardiac MRI. Overall, suspected to have hypertrophic cardiomyopathy. This has led to anxiety but otherwise he seems to be doing okay. No family history of hypertrophic cardiomyopathy. He is not known to be hypertensive. Overall, he states he feels fine. Trying to lose some weight. Otherwise, getting along okay without any concerns. [facility] Medical History (Updated 08/23/23 @ 17:33 by KEN Hollingsworth) Atypical chest pain COVID-19 Headache Diabetes Abnormal EKG Cough Bilateral flank pain Myalgia Surgical History History of back surgery History of tonsillectomy History of cholecystectomy Family History Mother Brain cancer Father No problems noted. Social History Alcohol intake: former Patient Tobacco Use Status: Never used Tobacco Review of Systems Const Denies chills, Denies fatigue, Denies fever(s), Denies frequent falls, Denies weakness, Denies weight gain and Denies weight loss ENT Denies dizziness Card Denies chest pain, Denies leg edema, Denies lightheadedness, Denies palpitations, Denies dyspnea and Denies dyspnea on exertion Resp Denies cough, Denies dyspnea and Denies dyspnea on exertion GI Denies hematochezia Musc Denies abnormal gait, Denies muscle weakness, Denies numbness, Denies radiating pain into limb and Denies tingling Neuro Denies abnormal gait, Denies dizziness, Denies frequent falls, Denies numbness, Denies tingling and Denies weakness Endo Denies fatigue and Denies palpitations Physical Exam Vital Signs: Last Vital Signs Pulse 62 02/24/24 08:32 BP 130/64 02/24/24 08:32 BMI result Body Mass Index 33.0 Const General: comfortable and no acute distress Orientation/consciousness: patient oriented x3 HEENT Other: Unremarkable Head: Yes normal to inspection Neck Neck: Yes normal visual inspection Chest Chest palpation & inspection: normal inspection of the chest Resp Auscultation: clear to auscultation bilaterally Cardio Palpation: normal PMI Heart sounds: S1 normal heart sound present, S2 normal heart sound present, no gallops, no murmurs and no rubs GI Palpation (GI): Soft to palpation Back/Spine/Pelvis Other: unremarkable Skin General skin exam: no rashes or lesions noted Neuro General: patient oriented x3 Extrem General: Yes normal to inspection Psych Mental Status: mental status grossly normal Assessment & Plan Assessment & Plan (1) HOCM (hypertrophic obstructive cardiomyopathy): Code(s): I42.1 - Obstructive hypertrophic cardiomyopathy Category: Medical Plan Cardiac studies reviewed. EKG with underlying sinus rhythm at 75/Min; T inversions in anterior precordial leads as well as lead 1/aVL. Chronic findings and going back >10 years. In the recent echocardiogram, LVEF 60-65% with mild septal hypertrophy. Prior to that, described to have moderate hypertrophy and moderate diastolic dysfunction. In the stress test, was able to exercise for 10.2 METS on Jian protocol without angina. Slightly accentuated blood pressure response. Perfusion imaging unremarkable. Cardiac MRI with basal to mid septum thickening at 1.8 cm; slight thickening in the apex and LVEF of 60%. Small sized epicardial delayed enhancement in the mid inferior septum suggesting hypertrophic cardiomyopathy. Involvement is less than 5% of total myocardium. Mild turbulence in the LVOT. Holter shows underlying sinus rhythm with the average rate of 73/Min. No significant arrhythmias. He was also seen by Genetics. Variant of uncertain significance identified. Overall, consistent with hypertrophic cardiomyopathy, but no clear high risk findings. No specific medications required at this time. Again discussed family screening with an echocardiogram. He will contact us with any concerns. Total time spent including review of data, counseling, documentation, coordination of care-31 minutes. Follow-up in 1 year. Coding Level of Care Code Est Pt Level 4 (18404) Diagnoses HOCM (hypertrophic obstructive cardiomyopathy) I42.1
== END 2024-02-24 08:47 | disposition home or self-care (01) ==
PROVIDERS: Visit Provider Internal Medicine
DX: I42.1 Obstructive hypertrophic cardiomyopathy (principal)
CPT/HCPCS: 99214

== ENCOUNTER → 2024-02-24 08:27 | Outpatient (BNVA) | payer OTHER, SELFPAY | PROVIDERS: Visit Provider Internal Medicine | DX: I42.1 Obstructive hypertrophic cardiomyopathy (principal) | CPT/HCPCS: 99212 ==

== ENCOUNTER 2024-04-11 20:48 | Emergency (ER) | payer OTHER, SELFPAY ==
--- NOTE | 2024-04-11 20:50 | ED.GENADULT ---
HPI - General Adult General Chief complaint: Headache Stated complaint: hypertension Time Seen by Provider: 04/11/24 22:17 Source: patient Mode of arrival: ambulatory Limitations: no limitations History of Present Illness ED Provider: Dr. Ana Silverman HPI narrative: Patient comes to the emergency room complaining of high blood pressure, headache and left arm pain for 1 week. Patient states that he checked his blood pressure at home today, it was above 170 systolic. Patient does not take any antihypertensives. Patient only took Tylenol a few days ago for headache, did not try any other medications. Related Data Home Medications ?Medication ?Instructions ?Recorded ?Confirmed benzonatate 100 mg capsule 200 mg PO TID PRN cough 12/22/22 02/24/24 Previous Rx's ?Medication ?Instructions ?Recorded cyclobenzaprine 5 mg tablet 5 mg PO TID PRN muscle spasm 7 01/12/23 days #21 tabs naproxen 500 mg tablet 500 mg PO BID 7 days #14 tabs 01/12/23 ketorolac 10 mg tablet 10 mg PO TID PRN pain 5 days #15 06/08/23 tabs lidocaine 5 % topical patch 1 patch topical DAILY PRN pain #15 06/08/23 ea Allergies Allergy/AdvReac Type Severity Reaction Status Date / Time oxycodone [From PERCOCET] Allergy Intermediate Shortness Verified 04/11/24 20:53 of Breath Review of Systems Review of Systems: Constitutional : No Weight loss, No Fever, No Chills, No Night Sweats, No Fatigue, No Malaise ENT/Mouth : No Hearing loss, No Ear Pain, No Nasal Congestion, No Sinus Pain, No Hoarseness, No sore throat, No Rhinorrhea, No Swallowing Difficulty Eyes: No Eye Pain, No Swelling, No Redness, No Foreign Body, No Discharge, No Vision Changes Cardiovascular : No Chest Pain, complaining of left-sided arm pain for 1 week, No SOB, No Dyspnea on Exertion, No Orthopnea, No Edema, No Palpitations Respiratory : No Cough, No Sputum, No Wheezing, No Smoke Exposure, No Dyspnea Gastrointestinal : No Nausea, No Vomiting, No Diarrhea, No Constipation, No abdominal Pain, No Hematochezia, No Melena Genitourinary : no irregular bleeding, No Dysuria, No Urinary Frequency, No Hematuria, No Urinary Incontinence, No Urgency, No Flank Pain, No Urinary Flow Changes, No Hesitancy Musculoskeletal : No joint pain, No Myalgias, No Joint Swelling Skin : No Skin Lesions, No rash Neuro : No Weakness, No Numbness, No Paresthesias, No Loss of Consciousness, No Dizziness, complaining of Headache Psych : No Anxiety/Panic, No Depression, No SI/HI/AH/VH, No Social Issues, Heme/Lymph: No Bruising, No Bleeding,No Lymphadenopathy Endocrine : No Polyuria, No Polydipsia, No Temperature Intolerance [facility] Past Medical History Medical History Atypical chest pain COVID-19 Headache Diabetes Abnormal EKG Cough Bilateral flank pain Myalgia Surgical History History of back surgery History of tonsillectomy History of cholecystectomy Family History Family History Mother Brain cancer Father No problems noted. Social History Social History Alcohol intake: former Patient Tobacco Use Status: Never used Tobacco Smoked in Last 30 Days: No Use of substances other than those prescribed or required for medical reasons: No Advance Directives: No Advance Directives Information Provided: Yes Do you have a plan to hurt others: No Plan Physical Exam ED Vital Signs: Vital Signs - 24 hr 04/11/24 20:51 04/11/24 21:29 Temperature 98.5 F 97.8 F Pulse Rate 65 67 Respiratory Rate 16 16 Blood Pressure 136/84 119/80 Pulse Oximetry 98 96 Oxygen Delivery Method Room Air Room Air BMI result Body Mass Index 31.6 Const Other: Appearance: Alert. Oriented X3. No acute distress. Well-appearing Eyes: Pupils equal, round and reactive to light. ENT: Pharynx normal. Neck: Normal inspection. Neck supple. No lymph nodes noted. No crepitus CVS: Normal heart rate and rhythm. Pulses normal. Normal S1 and S2 Respiratory: No respiratory distress. Breath sounds normal. No Wheezing. No rales Abdomen: Soft and nontender. No rigidity. No distention. Skin: Skin warm and dry. Normal skin color. Normal skin turgor. Extremities: No lower extremity edema. No Lacerations. No Rash Neuro: Oriented X 3. No motor deficit. No sensory deficit. Moving all extremities. No slurred speech. CN 2 through 12 grossly intact Psych: calm, cooperative, normal affect Course Course Course Narrative: This is a Rapid Medical Exam performed in triage by Meghann Bustamante PA-C. Full HPI, ROS and PE to be performed by primary ED provider. 49-year-old male with past medical history of diabetes, migraines, RICHARD, HOCM, presenting to the ED c/o headache x 1 week with LUE pain, L sided neck pain & dizziness. Admits BP was high at home 176/101. Denies hx HTN. Denies CP/SOB. +photophobia. Denies blurry vision PE: ambulating w/ steady gait, nonfocal, talking in complete sentences. BP 136/84 in triage Plan: EKG, labs, viral testing Medical Decision Making Medical Decision Making [facility] Narrative: My interpretation of EKG: Normal sinus rhythm, heart rate 70, no ST segment depression, T-wave inversions in leads V2 through V6 which are old, previously seen in previous EKGs, QTC 395 -my interpretation of labs, normal hematology chemistry and troponin. -patient's vitals stable, blood pressure 119/80, pulse 67, oxygen saturation 96% on room air -patient was giving IV Toradol, Benadryl and Reglan. -I discussed with the patient that his blood pressure seen in the hospital have been normal. Patient instructed to take his blood pressure monitor from home to a pharmacy where he can complete blood pressures, his monitor may not be calibrated. Differential Diagnosis Differential Diagnoses: The differential diagnosis associated with the presentation includes (Tension headache, migraine headache, viral syndrome) Lab Data [facility] Lab Attestation statement: I reviewed the patient's lab results. 04/11/24 21:02 04/11/24 21:02 Labs: Lab Results 04/11/24 Range/Units 21:02 WBC 7.7 (4.8-10.8) X10*3/uL RBC 5.45 (4.60-5.80) X10*6/uL Hgb 15.9 (14.0-18.0) g/dl Hct 45.9 (42.0-52.0) % MCV 84.2 (80.0-98.0) fL MCH 29.2 (27.0-33.0) pg MCHC 34.6 (31.0-36.0) g/dl RDW 13.1 (11.0-16.0) % Plt Count 221 (160-400) X10*3/uL MPV 10.4 (9.4-12.4) fL Immature Gran % (Auto) 0.3 (0.0-0.4) % Neut % (Auto) 57.0 (45-73) % Lymph % (Auto) 31.2 (20-40) % [place] % (Auto) 8.6 (2-11) % Eos % (Auto) 2.1 (0-4) % Baso % (Auto) 0.8 (0-2) % Lymph # (Auto) 2.4 (1.2-4.9) X10*3/uL [place] # (Auto) 0.7 (0.1-1.2) X10*3/uL Eos # (Auto) 0.2 (0.0-0.4) X10*3/uL Baso # (Auto) 0.1 (0.0-0.2) X10*3/uL Abs Immat Gran (auto) 0.02 (0.00-0.03) X10*3/uL Absolute Neuts (auto) 4.4 (2.0-8.3) x10*3/uL Absolute Nucleated RBC 0.000 (0.0-0.012) X10*3/uL Nucleated RBC % (auto) 0.0 (0.0-0.2) /100WBC PT 11.6 (10.9-12.4) SEC INR 1.0 (0.9-1.1) Sodium 142 (135-145) mmol/L Potassium 4.2 (3.3-5.1) mmol/L Chloride 106 (96-108) mmol/L Carbon Dioxide 24 (22-29) mmol/L Anion Gap 16 (12-20) BUN 11 (9-16) mg/dL Creatinine 1.07 (0.5-1.4) mg/dL Estim Creat Clear Calc 92.0 Estimated GFR > 60 Random Glucose 116 H (60-115) mg/dL Calcium 10.0 (8.4-10.2) mg/dL Magnesium 2.1 (1.6-2.6) mg/dL Total Bilirubin 0.7 (0.0-1.0) mg/dL Direct Bilirubin 0.2 (0.0-0.5) mg/dL AST 33 (5-37) U/L ALT 55 H (0-40) U/L Alkaline Phosphatase 72 (39-117) U/L Troponin I High Sens 7.8 (<3.5-35.0) ng/L Total Protein 7.8 (6.5-8.0) g/dL Albumin 4.6 (3.5-5.0) g/dL Influenza Type A (PCR) NEGATIVE (Negative) Influenza Type B (PCR) NEGATIVE (Negative) RSV RNA Qual (PCR) NEGATIVE (Negative) SARS-CoV-2 RNA (RT-PCR) NEGATIVE (Negative) Discharge Plan Discharge Clinical Impression: Headache, migraine Patient Disposition: Home, Self-Care Instructions: Migraine Headache (ED) Additional Instructions: Please follow-up with your primary care physician tomorrow. If you have any worsening or new symptoms, please return to the emergency room or call 911 Prescriptions: No Action cyclobenzaprine 5 mg tablet 5 mg PO TID PRN (Reason: muscle spasm) 7 Days Qty: 21 0RF naproxen 500 mg tablet 500 mg PO BID 7 Days Qty: 14 0RF ketorolac 10 mg tablet 10 mg PO TID PRN (Reason: pain) 5 Days Qty: 15 0RF lidocaine 5 % adhesive patch,medicated 1 patch topical DAILY PRN (Reason: pain) Qty: 15 0RF Rx Instructions: leave on most painful area for up to 12 hrs benzonatate 100 mg capsule 200 mg PO TID PRN (Reason: cough) Print Language: Czech
[2024-04-11 20:51] VITALS: BP 136/84; PULSE 65; RESP 16; TEMP 36.9; O2SAT 98; BMI 31.6
--- NOTE | 2024-04-11 20:51 | ECG_ITS ---
Test Reason : HTN Blood Pressure : / mmHG Vent. Rate : 070 BPM Atrial Rate : 070 BPM P-R Int : 162 ms QRS Dur : 076 ms QT Int : 366 ms P-R-T Axes : 049 011 155 degrees QTc Int : 395 ms Normal sinus rhythm ST & T wave abnormality, consider anterolateral ischemia Abnormal ECG When compared with ECG of 16-AUG-2023 19:39, No significant change was found Referred By: Meghann Bustamante Electronically Signed By:MADHU MCKEON
[2024-04-11 21:07] LABS: MANUAL DIFF FLAG NO
[2024-04-11 21:08] LABS: Basophils Absolute Auto 0.1 X10*3/uL (0.0-0.2); Basophils Percent Auto 0.8 % (0-2); Eosinophils Absolute Auto 0.2 X10*3/uL (0.0-0.4); Eosinophils Percent Auto 2.1 % (0-4); Hematocrit 45.9 % (42.0-52.0); Hemoglobin 15.9 g/dl (14.0-18.0); Imm Gran Abs Auto 0.02 X10*3/uL (0.00-0.03); Imm Gran Pct Auto 0.3 % (0.0-0.4); Lymphocytes Absolute Auto 2.4 X10*3/uL (1.2-4.9); Lymphocytes Percent Auto 31.2 % (20-40); Mean Corpuscular HGB Conc 34.6 g/dl (31.0-36.0); Mean Corpuscular Hemoglobin 29.2 pg (27.0-33.0); Mean Corpuscular Volume 84.2 fL (80.0-98.0); Mean Platelet Volume 10.4 fL (9.4-12.4); Monocytes Absolute Auto 0.7 X10*3/uL (0.1-1.2); Monocytes Percent Auto 8.6 % (2-11); Neutrophils Absolute Auto 4.4 x10*3/uL (2.0-8.3); Platelet Count 221 X10*3/uL (160-400); Red Blood Count 5.45 X10*6/uL (4.60-5.80); Red Cell Distribution Width 13.1 % (11.0-16.0); White Blood Count 7.7 X10*3/uL (4.8-10.8)
[2024-04-11 21:22] LABS: Alanine Aminotransferase 55 U/L (0-40); Albumin Level 4.6 g/dL (3.5-5.0); Alkaline Phosphatase 72 U/L (39-117); Anion Gap 16 (12-20); Aspartate Amino Transferase 33 U/L (5-37); Bilirubin Direct 0.2 mg/dL (0.0-0.5); Bilirubin Total 0.7 mg/dL (0.0-1.0); Blood Urea Nitrogen 11 mg/dL (9-16); Carbon Dioxide 24 mmol/L (22-29); Chloride 106 mmol/L (96-108); Estimated Glomerular Filt Rate > 60; Glucose Random 116 mg/dL (60-115); Magnesium 2.1 mg/dL (1.6-2.6); Potassium 4.2 mmol/L (3.3-5.1); Sodium 142 mmol/L (135-145); Total Protein 7.8 g/dL (6.5-8.0)
[2024-04-11 21:23] LABS: Prothrombin Time 11.6 SEC (10.9-12.4)
[2024-04-11 21:28] LABS: Troponin-I High Sensitivity 7.8 ng/L (<3.5-35.0)
[2024-04-11 21:29] VITALS: BP 119/80; PULSE 67; RESP 16; TEMP 36.6; O2SAT 96
[2024-04-11 21:45] LABS: Influenza A PCR NEGATIVE (Negative); Influenza B PCR NEGATIVE (Negative); Resp Syncy Virus RNA Qual PCR NEGATIVE (Negative); SARS COV2 PCR INHOUSE NEGATIVE (Negative)
[2024-04-11] MEDS: Metoclopramide HCl 10 MG/2 ML VIAL IVPUSH (22:33)
[2024-04-11] MEDS: diphenhydrAMINE HCL 50 MG/ML VIAL IVPUSH (22:33)
[2024-04-11] MEDS: Ketorolac Tromethamine 30 MG/ML VIAL IVPUSH (22:33)
[2024-04-11 23:06] VITALS: BP 119/80; PULSE 67; RESP 16; TEMP 36.6; O2SAT 96
== END 2024-04-11 23:07 | disposition home or self-care (01) ==
PROVIDERS: Physician Assistant; Emergency Provider Emergency Medicine; PCP Internal Medicine
DX: G43.909 Migraine, unspecified, not intractable, without status migrainosus (principal); I10 Essential (primary) hypertension; M79.602 Pain in left arm; R94.31 Abnormal electrocardiogram [ECG] [EKG]; Z79.899 Other long term (current) drug therapy; Z03.818 Encounter for observation for suspected exposure to other biological agents ruled out
CPT/HCPCS: 0241U; 36415; 80048; 80076; 83735; 84484; 85025; 85610; 93005; 96374; 96375; 99284; 99285; J1200; J1885; J2765

== ENCOUNTER → 2024-04-11 20:51 | Outpatient (BNV) | payer OTHER, SELFPAY | PROVIDERS: Emergency Provider Emergency Medicine; PCP Internal Medicine; Visit Provider Internal Medicine | DX: R94.31 Abnormal electrocardiogram [ECG] [EKG] (principal) | CPT/HCPCS: 93010 ==

== ENCOUNTER 2024-09-20 06:03 | Emergency (ER) | payer OTHER, SELFPAY ==
--- NOTE | 2024-09-20 | ECG_ITS ---
Test Reason : CHEST PRESSURE Blood Pressure : */* mmHG Vent. Rate : 68 BPM Atrial Rate : 68 BPM P-R Int : 164 ms QRS Dur : 80 ms QT Int : 378 ms P-R-T Axes : 31 28 211 degrees QTcB Int : 401 ms Normal sinus rhythm ST & Marked T wave abnormality, consider anterolateral ischemia Abnormal ECG When compared with ECG of 11-Apr-2024 20:52, Inverted T waves have replaced nonspecific T wave abnormality in Inferior leads Referred By: Generic ED Physician Electronically Signed By: Jay Stroud
--- NOTE | ~2024-09-20 | XR_ITS ---
CLINICAL HISTORY: cough, mid upper back pain 2 view chest x-ray. Comparison: CR/SR - XR CHEST 2V - 08/16/23 20:09 EST Findings: The lungs are adequately expanded. No focal consolidation. No effusion or pneumothorax. Cardiac and mediastinal contours are within normal limits. No acute osseous abnormality Impression: No acute process. This document has been electronically signed by: Sherif Gómez MD on 09/20/2024 07:12:27
[2024-09-20 06:05] VITALS: BP 134/80; PULSE 71; RESP 18; TEMP 36.6; O2SAT 99; BMI 30.9
--- OUTSIDE RECORDS SUMMARY | 2024-09-20 06:30 | XMS_ITS | Clinical Summary ---
Author Organization [facility] ity Address [address] [place] [address] Care Team Providers Care Pizza Chef Name Role Phone Handy Casillas MD Primary Care Provider [phone] Allergies Active Allergy Reactions Criticality Noted Date Comments Oxycodone Low 05/17/2023 Other Reaction(s): UNKNOWN Oxycodone-Acetaminophen 10/10/2013 Rapid heart rate Medications tamsulosin (FLOMAX) 0.4 mg 24 hr capsule Take 1 Capsule by mouth daily for 360 days. Take 30 mins after same meal every day. 11/16/2023 Active acetaminophen (TYLENOL) 500 mg tablet Take 2 tablets (1,000 mg total) by mouth every 8 (eight) hours. 10/13/2023 Active FREESTYLE LANCETS MISC Used to check glucose levels once daily. 02/02/2023 Active blood sugar diagnostic (FreeStyle Lite Strips) test strip Used to check glucose levels once daily. 02/02/2023 Active Active Problems Problem Noted Date Diagnosed Date Type 2 diabetes mellitus with obesity 11/17/2021 Elevated LFTs 11/20/2020 Obesity (BMI 30-39.9) 11/14/2018 Obstructive sleep apnea 05/24/2017 Overview (06/16/2024): UNTREATED (10/26/22) [facility] Home Polysomnogram: Date 05/20/2017; AHI 18, Unclassified apneas 0; Obstructive apneas 28; Central apneas 4; Mixed apneas 0; hypopneas 58; average oxygen saturation 95% (lowest 83% without saturations <88% for 5% or more of study) [facility] Polysomnogram treatment study. Date 12/28/2017. SE 52 % SM 78 %; spent 12 % of the study in REM. On CPAP @ 12; RDI 0 (AHI 0), Central apneas 0; Obstructive apneas 0; Mixed apneas 0; hypopneas 0; RERAs 0; and, average oxygen saturation was 95%. For the entire study, PLMs ~59. [facility] Home Sleep Study 10/22/2021. Weight 214#; BMI 34. AHI 7. 5 unclassified apneas, 3 obstructive apneas, 3 central apneas and 28 hypopneas. Average oxygen saturation 92% with oxygen kelsie 76%. Obstructive sleep apnea - moderate; mostly hypopneas with obstructive apneas; no sleep related hypoxia by 2016 home polysomnogram. Obstructive sleep apnea- mild, mostly hypopneas with nocturnal hypoxemia based on 2021 home sleep test. Enlarged adenoids 04/13/2017 Overview (06/16/2024): Seen by ENT Perennial allergic conjunctivitis of both eyes 1 Perennial allergic rhinitis 04/13/2017 Immunizations Name Administration Dates Next Due Hepatitis B (Afndlbk-C-Nxiou , Recombivax HB-Adult) 19yo and older 06/18/2010,03/05/2010,04/15/2009 Influenza trivalent, 0.5mL, preservative free (Fluarix; FluLaval; Fluzone) ages 6mo and older (Afluria) 3 years and older 04/02/2015,03/20/2014,03/31/2013,2010 Pneumococcal conjugate 20 va lent (Prevnar 20, PCV 20) 2mo and older 11/16/2023 Td Tetanus diptheria (Tdvax) 7yo and older 09/12/2007 Tdap Tetanus diptheria acell ular pertussis (Boostrix; Adacel) 7yo and older 03/24/2017 Surgical History Surgery Date Site/Laterality Comments CHOLECYSTECTOMY 1999 PROCEDURE: [place] LAPAROSCOPY SURG CHOLECYSTECTOMY TONSILLECTOMY 11/2019 PROCEDURE: HISTORICAL TONSILLECTOMY; COMMENT: Dr. Zavaleta BACK SURGERY 09/2019 PROCEDURE: HISTORICAL BACK SURGERY; COMMENT: reported by patient, does not recall procedure Medical History Medical History Date Comments Perennial allergic rhinitis 04/13/2017 DX:P erennial allergic rhinitis Perennial allergic conjuncti vitis of both eyes 04/13/2017 DX:Perennial allergic conjun ctivitis of both eyes History of Helicobacter pylo ri infection 10/10/2013 DX:History of Helicobacter p ylori infection Enlarged adenoids 04/13/2017 DX:Enlarged ad enoids; COMMENT: Seen by ENT Obstructive sleep apnea 05/24/2017 DX:Obstr uctive sleep apnea; COMMENT: [facility] Home Polysomnogram: Date 05/20/2017; AHI 18, Unclassified apneas 0; Obstructive apneas 28; Central apneas 4; Mixed apneas 0; hypopneas 58; average oxygen saturation 95% (lowest 83% without saturations <88% for 5% or more of study) Obstructive sleep apnea - moderate; mostly hypopneas with obstructive apneas; no sleep related hypoxia by 2016 home polysomnogram. Family History Medical History Relation Name Comments Asthma Father remote history as a child Other cancer Mother brain tumor Asthma Son Eczema Son Other: seafood allergy Son Other: seasonal allergies Son Relation Name Status Comments Brother 1 Alive Brother 2 Alive Daughter 1 Alive Daughter 2 Alive Daughter 3 Alive Father Alive Maternal Grandfather Maternal Grandmother Mother Paternal Grandfather Paternal Grandmother Sister 1 Alive Sister 2 Alive Son Alive Social History Tobacco Use Types Packs/Day Years Used Date Smoking Tobacco: Never Smokeless Tobacco: Never Alcohol Use Standard Drinks/Week Comments No 0 (1 standard drink = 0.6 oz pur e alcohol) Sex and Gender Information Value Date Recorded Sex Assigned at Not on file Legal Sex Male 4:54 AM EST Gender Identity Not on file Sexual Orientation Not on file Obstetrics History Last Filed Vital Signs Vital Sign Reading Time Taken Comments Blood Pressure 137/69 11/16/2023 4:05 PM EDT Pulse 68 11/16/2023 4:05 PM EDT Temperature - - Respiratory Rate - - Oxygen Saturation 99% 02/02/2023 9:0 7 AM EDT at rest, room air Inhaled Oxygen Concentration - - Weight 96.2 kg (212 lb) 11/16/2023 4:05 PM EDT Height 172.7 cm (5' 8 ) 11/16/2023 4:05 PM EDT Body Mass Index 32.23 11/16/2023 4:05 PM EDT Plan of Treatment Health Maintenance Due Date Last Done Comments COVID-19 Vaccine (#1) 1979 Diabetes: Annual Foot Exam 1984 Zoster Vaccines (1 of 2) 1993 Depression Screening 05/23/2022 HIV Screening 05/23/2022 Hepatitis C Screening 05/23/2022 Social Influencers of Health Screening 05/23/2022 Diabetes: Blood Sugar Control Test (HGBA1C) 04/12/2024 10/12/2023, 10/12/2023 Diabetes: Annual Urine Albumin-Creatinine Ratio (uACR) 10/11/2024 10/12/2023 Diabetes: Annual GFR (Glomerular Filtration Rate) 10/11/2024 10/12/2023, 10/12/2023 Diabetes: Annual Retina Eye Exam 11/01/2024 11/02/2023 Influenza Vaccine (Season Ended) 2025 04/02/2015, 03/20/2014, 03/31/2013, Additional history exists Colorectal Cancer Screening: Colonoscopy 05/25/2026 05/25/2023 DTaP,Tdap,and Td Vaccines (3 - Td or Tdap) 03/24/2027 03/24/2017, 09/12/2007 Cholesterol Screening (Lipid Panel) 10/11/2028 10/12/2023, 10/12/2023 Hepatitis B Vaccines Completed 06/18/2010, 03/05/2010, 04/15/2009 Pneumococcal Vaccine: 50+ Years Completed 11/16/2023 Pneumococcal Vaccine: Pediatrics (0 to 5 Years) and At-Risk Patients (6 to 64 Years) Completed 11/16/2023 HIB Vaccines Aged Out No longer eligi ble based on patient's age to complete this topic HPV Vaccines Aged Out No longer eligi ble based on patient's age to complete this topic Hepatitis A Vaccines Aged Out No long er eligible based on patient's age to complete this topic IPV Vaccines Aged Out No longer eligi ble based on patient's age to complete this topic MMR Vaccines Aged Out No longer eligi ble based on patient's age to complete this topic Meningococcal ACWY Vaccine Aged Out N o longer eligible based on patient's age to complete this topic Meningococcal B Vaccine Aged Out No l onger eligible based on patient's age to complete this topic RSV Immunization Patients Under 20 months Aged Out No longer eligible based on patient's age to complete this topic Varicella Vaccines Aged Out No longer eligible based on patient's age to complete this topic Procedures Procedure Name Priority Date/Time Associated Diagnosis Comments DIABETES EYE EXAM Routine 11/02/2023 URINE ALBUMIN CREATININE RATIO Routine 10/12/2023 ANNUAL BMP BLOOD TEST Routine 10/12/2023 HEMOGLOBIN A1C Routine 10/12/2023 LIPID PANEL Routine 10/12/2023 COLONOSCOPY Routine 05/25/2023 from Last 3 Months or Most Recently Relevant to Health Maintenance Results * Diabetes Eye Exam (11/02/2023) [facility] Diabetes: Annual Retina Eye Exam Abstracted [facility] Provider HEALTH MAINTENANCE Final Result * Urine Albumin Creatinine Ratio (10/12/2023) [facility] Urine Albumin Creatinine Ratio Abstracted Result [facility] Provider HEALTH MAINTENANCE Final Result * Annual BMP Blood Test (10/12/2023) [facility] Annual BMP Blood Test Abstracted Result [facility] Provider HEALTH MAINTENANCE Final Result * (ABNORMAL) Hemoglobin A1c (10/12/2023) [facility] Hemoglobin A1C 7.1(A) <=6.5 % Blood Venous blood specimen / Unknown Result [facility] Provider LAB BLOOD ORDERABLES Michelle l Result * (ABNORMAL) Lipid panel (10/12/2023) [facility] LDL/HDL Ratio 6(A) 0 - 4 Triglycerides 194(A) 0 - 150 mg/dL Cholesterol 194 0 - 200 mg/dL HDL 35(A) >=40 mg/dL LDL Cholesterol 121(A) 0 - 100 mg/dL Blood Venous blood specimen / Unknown us Historical Provider LAB BLOOD ORDERABLES Michelle l Result * Colonoscopy (05/25/2023) Colonoscopy No Interpretation , Abstracted Anatomical Region Laterality Modality Other us Historical Provider HEALTH MAINTENANCE Final Result from Last 3 Months or Most Recently Relevant to Health Maintenance Care Teams Pizza Chef Relationship Specialty Start Date End Date Handy Casillas MD PCP - General Internal Medicine 10/10/13
--- OUTSIDE RECORDS SUMMARY | 2024-09-20 06:30 | XMS_ITS | Clinical Summary ---
Author Organization [employer] Address [address] [facility] [address] [place] [address] Care Team Providers Care Legal Researcher Name Role Phone Unavailable Primary Care Provider Unavailabl e Social History Tobacco Use Types Packs/Day Years Used Date Smoking Tobacco: Never Assessed Sex and Gender Information Value Date Recorded Sex Assigned at Male 09/02/2022 4:03 PM EDT Legal Sex Male 4:02 PM EDT Gender Identity Male 09/02/2022 4:03 PM EDT Sexual Orientation Straight 09/02/2022 4: 03 PM EDT Plan of Treatment Health Maintenance Due Date Last Done Comments CT Colonography 1974 Colonoscopy 1974 Colorectal Cancer Screening 1974 Depression Screening 1974 FIT DNA/Cologuard 1974 FIT 1974 FOBT 1974 HIV Screening 1974 Lipid Panel 1974 SDOH Screening 1974 Sigmoidoscopy 1974 Alcohol/Substance Use Screening 1986 Tobacco Screening 1986 Family Planning (PISQ) 1989 Hepatitis C Screening 1992 DTaP/Tdap/Td Vaccines (1 - Tdap) 1993 Hepatitis B Vaccines (1 of 3 - 19+ 3-dose series) 1993 COVID-19 Vaccine ( - 2023-2 5 season) 2024 Influenza Vaccine (#1) 2024 Pneumococcal Vaccine: 50+ Ye ars (1 of 1 - PCV) 2024 Zoster Vaccines (1 of 2) 2024 RSV Patients and Pa tients Aged 60 years or older (1 - 1-dose 75+ series) 2049 HIB Vaccines Aged Out No longer eligi [...] patient's age to complete this topic Meningococcal Vaccine Aged Out No cammie yoselin eligible based on patient's age to complete this topic Pneumococcal Vaccine: Pediat rics (0 to 5 Years) and At-Risk Patients (6 to 49) Years) Aged Out No longer eligible b ased on patient's age to complete this topic RSV under 20 months Aged Out No longe r eligible based on patient's age to complete this topic Rotavirus Vaccines Aged Out No longer eligible based on patient's age to complete this topic Insurance [facility]
[2024-09-20 06:31] LABS: Basophils Absolute Auto 0.1 X10*3/uL (0.0-0.2); Basophils Percent Auto 0.7 % (0-2); Eosinophils Absolute Auto 0.3 X10*3/uL (0.0-0.4); Eosinophils Percent Auto 3.2 % (0-4); Hematocrit 39.8 % (42.0-52.0); Hemoglobin 14.2 g/dl (14.0-18.0); Imm Gran Abs Auto 0.05 X10*3/uL (0.00-0.03); Imm Gran Pct Auto 0.6 % (0.0-0.4); Lymphocytes Absolute Auto 2.9 X10*3/uL (1.2-4.9); Lymphocytes Percent Auto 36.2 % (20-40); MANUAL DIFF FLAG NO; Mean Corpuscular HGB Conc 35.7 g/dl (31.0-36.0); Mean Corpuscular Hemoglobin 29.5 pg (27.0-33.0); Mean Corpuscular Volume 82.7 fL (80.0-98.0); Mean Platelet Volume 9.5 fL (9.4-12.4); Monocytes Absolute Auto 0.6 X10*3/uL (0.1-1.2); Neutrophils Absolute Auto 4.2 x10*3/uL (2.0-8.3); Neutrophils Percent Auto 52.3 % (45-73); Platelet Count 226 X10*3/uL (160-400); Red Blood Count 4.81 X10*6/uL (4.60-5.80); Red Cell Distribution Width 13.2 % (11.0-16.0); White Blood Count 8.1 X10*3/uL (4.8-10.8)
[2024-09-20 06:51] LABS: Alanine Aminotransferase 48 U/L (0-40); Albumin Level 4.1 g/dL (3.5-5.0); Alkaline Phosphatase 78 U/L (39-117); Anion Gap 10 (12-20); Aspartate Amino Transferase 32 U/L (5-37); Bilirubin Total 0.4 mg/dL (0.0-1.0); Blood Urea Nitrogen 11 mg/dL (9-16); Calcium 9.5 mg/dL (8.4-10.2); Carbon Dioxide 28 mmol/L (22-29); Chloride 106 mmol/L (96-108); Creatinine Clr Calc Pharmacy 90.1; Estimated Glomerular Filt Rate > 60; Glucose Random 120 mg/dL (60-115); Sodium 140 mmol/L (135-145); Total Protein 7.2 g/dL (6.5-8.0)
[2024-09-20 07:08] LABS: Influenza A PCR NEGATIVE (Negative); Influenza B PCR NEGATIVE (Negative); Resp Syncy Virus RNA Qual PCR NEGATIVE (Negative); SARS COV2 PCR INHOUSE NEGATIVE (Negative)
--- NOTE | 2024-09-20 07:40 | ED_ITS ---
HPI - General Adult General Chief complaint: Back Pain/Injury Stated complaint: pain in the middle back , pressure Time Seen by Provider: 09/20/24 07:11 Source: patient Mode of arrival: ambulatory Limitations: no limitations History of Present Illness HPI narrative: This is 49 years old with history of obesity, hypertrophic cardiomyopathy obstructive sleep apnea presented to the emergency department with a chief complaint of cough chest pain for 2 weeks upper back pain. Denies any fever chills shortness of breath exertional symptoms. Onset (ago): week(s) (2) Location: chest Radiation: non-radiation Severity: mild Quality: burning Pain Consistency: now resolved Relieving factors: none Exacerbating factors: none Associated symptoms: denies other symptoms Related Data Home Medications ?Medication ?Instructions ?Recorded ?Confirmed benzonatate 100 mg capsule 200 mg PO TID PRN cough 12/22/22 02/24/24 Previous Rx's ?Medication ?Instructions ?Recorded cyclobenzaprine 5 mg tablet 5 mg PO TID PRN muscle spasm 7 01/12/23 days #21 tabs naproxen 500 mg tablet 500 mg PO BID 7 days #14 tabs 01/12/23 ketorolac 10 mg tablet 10 mg PO TID PRN pain 5 days #15 06/08/23 tabs lidocaine 5 % topical patch 1 patch topical DAILY PRN pain #15 06/08/23 ea Allergies Allergy/AdvReac Type Severity Reaction Status Date / Time oxycodone [From PERCOCET] Allergy Intermediate Shortness Verified 09/20/24 06:06 of Breath Review of Systems 2 Constitutional: Constitutional: Reports no additional constitutional complaints Cardiovascular: Cardiovascular: Reports no additional cardiovascular complaints Musculoskeletal: Musculoskeletal: Reports no additional musculoskeletal complaints [facility] Past Medical History Attestation statement: The following information was validated with the patient. Medical History Atypical chest pain COVID-19 Headache Diabetes Abnormal EKG Cough Bilateral flank pain Myalgia Surgical History History of back surgery History of tonsillectomy History of cholecystectomy Family History Family History Mother Brain cancer Father No problems noted. Social History Social History Alcohol intake: former Patient Tobacco Use Status: Never used Tobacco Physical Exam ED Vital Signs: Vital Signs - 24 hr 09/20/24 06:05 09/20/24 08:04 Temperature 97.9 F 97.9 F Pulse Rate 71 71 Respiratory Rate 18 18 Blood Pressure 134/80 134/80 Pulse Oximetry 99 99 Oxygen Delivery Method Room Air Room Air BMI result Body Mass Index 30.9 No acute distress looks well Const General: cooperative, healthy appearing, comfortable, no acute distress, well developed, alert and awake Nutritional Appearance: well nourished Orientation/consciousness: patient oriented x3 Limitations: no limitations HENMT Head: Yes normal to inspection Face and sinus: Yes normal facial exam Mouth: Normal oral and palatal mucosa present Neck Neck: Yes normal visual inspection and Yes full ROM Chest Chest palpation & inspection: normal inspection of the chest Resp Effort & Inspection: normal respiratory effort Auscultation: clear to auscultation bilaterally Cardio Jugular venous distension: no JVD Rate: regular rate Rhythm: regular rhythm GI Inspection: Yes normal to inspection Palpation (GI): Soft to palpation, not firm, nontender and no guarding Auscultation: normal bowel sounds Skin General skin exam: no rashes or lesions noted and elasticity normal Lesions: no lesions Rashes: no rashes Neuro General: patient oriented x3 Cranial nerves: Yes CN's II-XII intact bilaterally Medical Decision Making Medical Decision Making [facility] Narrative: Patient is here with 2 weeks of chest discomfort cough, he has a negative high sensitive troponin after 2 weeks of symptoms so I do not think we need to do another troponin, he has a normal labs normal chest x-ray, his EKG showed inverted T-waves in the lateral leads which has old. I think he can probably be discharged home this may be viral syndrome. I think it is safe for discharge to follow-up with the primary care physician. Patient is very comfortable with this. Pocus cardiac was done no pericardial effusion nl global wall motion Differential Diagnosis Differential Diagnoses: The differential diagnosis associated with the presentation includes Atypical chest pain/acute coronary syndrome/pericardial effusion Admission/Observation Consideration of admission/observation: Escalation of care including admission/observation considered Lab Data [facility] Lab Attestation statement: I reviewed the patient's lab results. 09/20/24 06:26 09/20/24 06:26 Labs: Lab Results 09/20/24 Range/Units 06:26 WBC 8.1 (4.8-10.8) X10*3/uL RBC 4.81 (4.60-5.80) X10*6/uL Hgb 14.2 (14.0-18.0) g/dl Hct 39.8 L (42.0-52.0) % MCV 82.7 (80.0-98.0) fL MCH 29.5 (27.0-33.0) pg MCHC 35.7 (31.0-36.0) g/dl RDW 13.2 (11.0-16.0) % Plt Count 226 (160-400) X10*3/uL MPV 9.5 (9.4-12.4) fL Immature Gran % (Auto) 0.6 H (0.0-0.4) % Neut % (Auto) 52.3 (45-73) % Lymph % (Auto) 36.2 (20-40) % [place] % (Auto) 7.0 (2-11) % Eos % (Auto) 3.2 (0-4) % Baso % (Auto) 0.7 (0-2) % Lymph # (Auto) 2.9 (1.2-4.9) X10*3/uL [place] # (Auto) 0.6 (0.1-1.2) X10*3/uL Eos # (Auto) 0.3 (0.0-0.4) X10*3/uL Baso # (Auto) 0.1 (0.0-0.2) X10*3/uL Abs Immat Gran (auto) 0.05 H (0.00-0.03) X10*3/uL Absolute Neuts (auto) 4.2 (2.0-8.3) x10*3/uL Absolute Nucleated RBC 0.000 (0.0-0.012) X10*3/uL Nucleated RBC % (auto) 0.0 (0.0-0.2) /100WBC Sodium 140 (135-145) mmol/L Potassium 4.0 (3.3-5.1) mmol/L Chloride 106 (96-108) mmol/L Carbon Dioxide 28 (22-29) mmol/L Anion Gap 10 L (12-20) BUN 11 (9-16) mg/dL Creatinine 1.08 (0.5-1.4) mg/dL Estim Creat Clear Calc 90.1 Estimated GFR > 60 Random Glucose 120 H (60-115) mg/dL Calcium 9.5 (8.4-10.2) mg/dL Total Bilirubin 0.4 (0.0-1.0) mg/dL AST 32 (5-37) U/L ALT 48 H (0-40) U/L Alkaline Phosphatase 78 (39-117) U/L Troponin I High Sens 8.0 (<3.5-35.0) ng/L Total Protein 7.2 (6.5-8.0) g/dL Albumin 4.1 (3.5-5.0) g/dL Influenza Type A (PCR) NEGATIVE (Negative) Influenza Type B (PCR) NEGATIVE (Negative) RSV RNA Qual (PCR) NEGATIVE (Negative) SARS-CoV-2 RNA (RT-PCR) NEGATIVE (Negative) Independent Interpretation I performed an independent interpretation of an: EKG Interpretation: I reviewed interpreted the EKG as sinus rhythm old inverted T-wave in the lateral leads Radiology Impression Discussion of test interpretation with radiology: I have reviewed the radiologist's reading. Radiologist Impression: 2 view chest x-ray. Comparison: CR/SR - XR CHEST 2V - 08/16/23 20:09 EST Findings: The lungs are adequately expanded. No focal consolidation. No effusion or pneumothorax. Cardiac and mediastinal contours are within normal limits. No acute osseous abnormality Impression: No acute process. This document has been electronically signed by: Sherif Gómez MD on 09/20/2024 07:12:27 Dictated By: Sherif Gómez MD Signed By: <Electronically signed by Sherif Gómez MD in OV> 09/20/24 [id number] External Record Review External record reviewed: Inpatient record Discharge Plan Discharge Clinical Impression: Acute viral syndrome Chest pain Qualifiers: Chest pain type: unspecified Qualified Code(s): R07.9 - Chest pain, unspecified Patient Disposition: Home, Self-Care Instructions: Chest Pain (DC) Additional Instructions: Please follow-up with your primary care physician, your chest x-ray was normal, the blood work for heart attack was negative Prescriptions: No Action cyclobenzaprine 5 mg tablet 5 mg PO TID PRN (Reason: muscle spasm) 7 Days Qty: 21 0RF naproxen 500 mg tablet 500 mg PO BID 7 Days Qty: 14 0RF ketorolac 10 mg tablet 10 mg PO TID PRN (Reason: pain) 5 Days Qty: 15 0RF lidocaine 5 % adhesive patch,medicated 1 patch topical DAILY PRN (Reason: pain) Qty: 15 0RF Rx Instructions: leave on most painful area for up to 12 hrs benzonatate 100 mg capsule 200 mg PO TID PRN (Reason: cough) Interventions: ED Discharge Assessment Last Done: 09/20/24 08:04 Discharge Date/Time: 09/20/24 08:06 Print Language: Sami
[2024-09-20 08:04] VITALS: BP 134/80; PULSE 71; RESP 18; TEMP 36.6; O2SAT 99
== END 2024-09-20 08:06 | disposition home or self-care (01) ==
PROVIDERS: Emergency Provider Emergency Medicine
DX: B34.9 Viral infection, unspecified (principal); R07.89 Other chest pain; R94.31 Abnormal electrocardiogram [ECG] [EKG]; Z03.818 Encounter for observation for suspected exposure to other biological agents ruled out; Z79.899 Other long term (current) drug therapy
CPT/HCPCS: 0241U; 36415; 71046; 80053; 84484; 85025; 93005; 99283; 99285

== ENCOUNTER → 2024-09-20 06:18 | Outpatient (BNV) | payer OTHER, SELFPAY | PROVIDERS: Emergency Provider Emergency Medicine; Visit Provider Internal Medicine Cardiovascular Disease | DX: R94.31 Abnormal electrocardiogram [ECG] [EKG] (principal); R07.89 Other chest pain | CPT/HCPCS: 93010 ==

== ENCOUNTER → 2024-09-20 06:33 | Outpatient (BNV) | payer OTHER, SELFPAY | PROVIDERS: Emergency Provider Emergency Medicine; Visit Provider Radiology Vascular & Interventional Radiology | DX: M54.6 Pain in thoracic spine (principal); R05.9 Cough, unspecified | CPT/HCPCS: 71046 ==

== ENCOUNTER 2024-09-28 09:38 | Outpatient (AMB) | payer OTHER, SELFPAY ==
[2024-09-28 09:57] VITALS: BP 134/80; PULSE 73; BMI 31.7
--- NOTE | 2024-09-28 09:57 | MHC.OFFVIS ---
Vital Signs 09/28/24 09:57 Height 5 ft 8 in Weight 208 lb 8.917 oz BMI 31.7 BP 134/80 Blood Pressure Location Lt brachial Position Sitting Pulse 73 Pulse Source Pulse Oximeter Intake Visit Reasons: [facility]/09-20/pain in the middle back chest pressure Shelving Supervisor Required: No Allergies oxycodone [From PERCOCET] Allergy (Intermediate, Verified 09/28/24 10:01) Shortness of Breath Medication List - Last Reconciled 09/28/24 by Karen Ram, DELIA-C No Known Home Meds HPI HPI [facility]/09-20/pain in the middle back chest pressure: Details: Madhav is a 49 year-old male with past medical history of diabetes, mild obesity, abnormal EKG, untreated sleep apnea, hypertrophic cardiomyopathy who presents for follow-up after recent ER evaluation for viral illness. Today he reports that he went to the emergency room due to pains in his body and in his chest area with cough. Cardiac evaluation was done without acute findings. He was told he had viral illness. Says he continues to have issues with joint and muscle aching. He has some muscle pain in his back. He is no longer coughing. He denies chest discomfort brought on by physical activity. He denies shortness of breath, PND, orthopnea. He reports doing only light physical activities. He had COVID 1.5 months ago and is not sure if he is fully recovered. Not taking any medications. [facility] Medical History Atypical chest pain COVID-19 Headache Diabetes Abnormal EKG Cough Bilateral flank pain Myalgia Surgical History History of back surgery History of tonsillectomy History of cholecystectomy Family History Mother Brain cancer Father No problems noted. Social History Alcohol intake: former Patient Tobacco Use Status: Never used Tobacco Review of Systems Const Details: body aches All systems reviewed & are unremarkable except as noted in HPI and below Reports malaise ENT Denies dizziness Card Denies chest pain, Denies chest pain at rest, Denies chest pain with activity, Denies rapid heart rate, Denies pedal edema, Denies edema, Denies leg edema, Denies lightheadedness, Denies palpitations, Denies dyspnea, Denies dyspnea on exertion and Denies orthopnea Resp Denies cough, Denies dyspnea and Denies dyspnea on exertion GI Denies hematochezia and Denies change in stool character Musc Denies abnormal gait, Denies limited range of motion, Denies muscle cramps, Denies muscle weakness, Denies numbness, Denies radiating pain into limb, Denies stiffness and Denies tingling Neuro Denies abnormal gait, Denies dizziness, Denies numbness and Denies tingling Endo Denies palpitations Physical Exam Vital Signs: Last Vital Signs Pulse 73 09/28/24 09:57 BP 134/80 09/28/24 09:57 BMI result Body Mass Index 31.7 Const General: cooperative, healthy appearing, comfortable and no acute distress Orientation/consciousness: patient oriented x3 Neck Neck: Yes normal visual inspection Resp Effort & Inspection: normal respiratory effort Auscultation: clear to auscultation bilaterally, no rales, no rhonchi and no wheezes Cardio Rate: regular rate Rhythm: regular rhythm Heart sounds: S1 normal heart sound present, S2 normal heart sound present, no gallops, no murmurs and no rubs Neuro General: patient oriented x3 Extrem General: Yes normal to inspection, No no pedal edema and No calf tenderness Psych Appearance: grossly normal Mental Status: mental status grossly normal Speech and movement: Normal speech and movement present Assessment & Plan Assessment & Plan (1) HOCM (hypertrophic obstructive cardiomyopathy): Code(s): I42.1 - Obstructive hypertrophic cardiomyopathy Category: Medical Plan: Echocardiogram done 04/02/2022 showed EF 64%, moderate asymmetrical septal hypertrophy, mid inferior lateral segments hypokinetic. An exercise stress test done 04/02/2022 showed good exercise tolerance, no EKG changes of ischemia and normal myocardial perfusion imaging. He then had a cardiac MRI at [facility] on 06/26/2022 showing basal septum thickened at 1.8 cm, mildly thickened apex, findings suggesting hypertrophic cardiomyopathy, mild narrowing of the LVOT demonstrating turbulent flow signal, EF 52%. A Holter monitor showed sinus rhythm with average heart rate 73, no significant arrhythmias. 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 Based on the above information he was not felt to have high risk findings. No medications were started. He has no symptoms brought on by physical activity. He is currently dealing with a viral type illness. Offered reassurance that his symptoms do not sound cardiac. Will check echo prior to next visit. Cardiology follow-up 6 months, sooner if needed. (2) Atypical chest pain: Code(s): R07.89 - Other chest pain Category: Medical Plan: Report of atypical/ noncardiac chest discomfort occurring when coughing during recent illness. No anginal sounding symptoms. Recent EKG and normal troponin in ED. No further testing needed at present. Plan Time spent on chart review, documentation, interview and assessment Orders: Orders CA echo transthoracic complete 5 Months I42.1 - Obstructive hypertrophic cardiomyopathy Coding Level of Care Code Est Pt Level 4 (06574) Complex EM visit Add On G2211 Diagnoses HOCM (hypertrophic obstructive cardiomyopathy) I42.1 Atypical chest pain R07.89 Time Spent (min) 28
--- OUTSIDE RECORDS SUMMARY | 2024-09-28 11:03 | XMS_ITS | Clinical Summary ---
Author Organization [facility] Address [address] [place] [address] Care Team Providers Care Epidemiology Investigator Name Role Phone Handy Casillas MD Primary Care Provider [phone] Allergies Active Allergy Reactions Criticality Noted Date [...] Date Diagnosed Date Type 2 diabetes mellitus wit h obesity (CMS/HCC V24, CMS/HCC V28) 11/17/2021 Elevated LFTs 11/20/2020 Obesity (BMI 30-39.9) 11/14/2018 Obstructive sleep apnea 05/24/2017 Overview (06/16/2024): UNTREATED (10/26/22) [facility] Home Polysomnogram: Date 05/20/2017; AHI 18, Unclassified apneas 0; Obstructive apneas 28; Central apneas 4; Mixed apneas 0; hypopneas 58; average oxygen saturation 95% (lowest 83% without saturations <88% for 5% or more of study) [facility] Polysomnogram treatment study. Date 12/28/2017. SE 52 % SM 78 %; spent 12 % of the study in REM. On CPAP @ 12; RDI 0 (AHI 0), Central apneas 0; Obstructive apneas 0; Mixed apneas 0; hypopneas 0; RERAs 0; and, average oxygen saturation was 95%. For the entire study, PLMs ~59. [facility] Home Sleep Study 10/22/2021. Weight 214#; BMI [...] Name Administration Dates Next Due Hepatitis B (Dqusnfn-N-Mhzpd , Recombivax HB-Adult) 19yo and older 06/18/2010,03/05/2010,04/15/2009 [...] Surgery Date Site/Laterality Comments CHOLECYSTECTOMY 1999 PROCEDURE: NE LAPAROSCOPY SURG CHOLECYSTECTOMY TONSILLECTOMY 11/2019 PROCEDURE: HISTORICAL [...] apnea 05/24/2017 DX:Obstr uctive sleep apnea; COMMENT: [facility] Home Polysomnogram: Date 05/20/2017; AHI 18, Unclassified [...] Maintenance Results * Diabetes Eye Exam (11/02/2023) [facility] Diabetes: Annual Retina Eye Exam Abstracted Result [facility] Provider HEALTH MAINTENANCE Final Result * Urine Albumin Creatinine Ratio (10/12/2023) [facility] Urine Albumin Creatinine Ratio Abstracted Result [facility] Provider HEALTH MAINTENANCE Final Result * Annual BMP Blood Test (10/12/2023) [facility] Annual BMP Blood Test Abstracted Result [facility] Provider HEALTH MAINTENANCE Final Result * (ABNORMAL) Hemoglobin A1c (10/12/2023) [facility] Hemoglobin A1C 7.1(A) <=6.5 % Blood Venous blood specimen / Unknown Result [facility] Provider LAB BLOOD ORDERABLES Michelle l Result * (ABNORMAL) Lipid panel (10/12/2023) [facility] LDL/HDL Ratio 6(A) 0 - 4 Triglycerides [...] Recently Relevant to Health Maintenance Care Teams Epidemiology Investigator Relationship Specialty Start Date End Date Handy Casillas MD PCP - General Internal Medicine 10/10/13
--- OUTSIDE RECORDS SUMMARY | 2024-09-28 11:03 | XMS_ITS | Clinical Summary ---
Author Organization [employer] Address [address] [place] [address] Care Team Providers Care Wellhead Pumper Name Role Phone Unavailable Primary Care Provider [...] patient's age to complete this topic Insurance [facility] STANDARD
== END 2024-09-28 10:36 | disposition home or self-care (01) ==
LOC: HO.HCS 09:38
PROVIDERS: Visit Provider Nurse Practitioner Family
DX: I42.1 Obstructive hypertrophic cardiomyopathy (principal); R07.89 Other chest pain
CPT/HCPCS: 99214; G2211

== ENCOUNTER → 2024-09-28 09:38 | Outpatient (BNVA) | payer OTHER, SELFPAY | PROVIDERS: Visit Provider Nurse Practitioner Family | DX: I42.1 Obstructive hypertrophic cardiomyopathy (principal); R07.89 Other chest pain | CPT/HCPCS: 99212 ==

== ENCOUNTER 2024-10-04 08:21 | Outpatient (AMB) | payer OTHER, SELFPAY ==
[2024-10-04 08:32] VITALS: BP 120/78; PULSE 65; O2SAT 97; BMI 31.5
--- NOTE | 2024-10-04 08:32 | MHC.OFFVIS ---
Vital Signs 10/04/24 08:32 Height 5 ft 8 in Weight 207 lb BMI 31.5 BP 120/78 Blood Pressure Location Rt brachial Position Sitting Pulse 65 Pulse Source Pulse Oximeter Pulse Oximetry (%) 97 Oxygen Delivery Method Room Air Intake Visit Reasons: Follow up Intake Note: Patient presents follow up RICHARD and headaches. Sleep study done on 08/12/23 Education And Outreach Coordinator Required: No Education And Outreach Coordinator Name: Patient presents follow up RICHARD Accompanied by: Self / Same As Patient Allergies oxycodone [From PERCOCET] Allergy (Intermediate, Verified 10/04/24 08:37) Shortness of Breath Medication List - Last Reconciled 10/04/24 by JOHNNY Garcia No Known Home Meds HPI Comments Details: 49-yr-old male presents for f/u visit of RICHARD and headaches. Patient was last seen in May of 2023. Pt denies any significant interval medical changes. He continues to endorse snoring, unrefreshing sleep, and excessive daytime sleepiness. 08/12/2023 home sleep study showed mild obstructive sleep apnea with AHI 8 per hour and O2 kelsie 85% with SpO2 under 88% for 35 minutes of study time. Initially, after review of home sleep study patient was hesitant to retry PAP therapy again. However, today he would like to try PAP therapy again. He is hoping that this will help him to lose further weight as he states he is prediabetic. Last hemoglobin A1c in 2023- 7% He states he has not been having any migraines or occipital headaches. He is more concerned about generalized body pain, states he is waking up in the morning with joint pain and swelling. He also endorses numbness and tingling in his hands. He states he sometimes has pains in the inner sole of his feet. He is prone to leg cramps. He states he can feel the ground when walking. [facility] Medical History Atypical chest pain COVID-19 Headache Diabetes Abnormal EKG Cough Bilateral flank pain Myalgia Surgical History History of back surgery History of tonsillectomy History of cholecystectomy Family History Mother Brain cancer Father No problems noted. Social History Alcohol intake: former Patient Tobacco Use Status: Never used Tobacco Physical Exam Vital Signs: Last Vital Signs Pulse 65 10/04/24 08:32 BP 120/78 10/04/24 08:32 Pulse Ox 97 10/04/24 08:32 Oxygen Delivery Method Room Air 10/04/24 08:32 BMI result Body Mass Index 31.5 Const General: cooperative and no acute distress Orientation/consciousness: patient oriented x3 HEENT Head: Yes normocephalic Resp Effort & Inspection: normal respiratory effort and able to speak in complete sentences Neuro General: patient oriented x3, gait normal and CN's II-XI intact bilaterally Cognition (Neuro): normal cognition Motor exam (neuro): 5/5 motor strength present throughout Psych Appearance: grossly normal Mental Status: mental status grossly normal Speech and movement: Normal speech and movement present Affect: normal affect Attitude: cooperative Thought process: Normal thought process present Thought content: Normal thought content present Insight: Good insight present (Psych) Judgement: Good judgement present (Psych) Results Reviewed Results Reviewed: Assessment & Plan Assessment & Plan (1) RICHARD (obstructive sleep apnea): Comment: not on PAP. Code(s): G47.33 - Obstructive sleep apnea (adult) (pediatric) Category: Medical (2) Excessive daytime sleepiness: Code(s): G47.19 - Other hypersomnia Category: Medical (3) Sleep difficulties: Code(s): G47.9 - Sleep disorder, unspecified Category: Medical (4) Obesity (BMI 30.0-34.9): Code(s): E66.9 - Obesity, unspecified Category: Medical (5) Migraine without aura: Code(s): G43.009 - Migraine without aura, not intractable, without status migrainosus Category: Medical Qualifiers: Status migrainosus presence: without status migrainosus Intractability: not intractable Qualified Code(s): G43.009 - Migraine without aura, not intractable, without status migrainosus (6) Joint pain: Code(s): M25.50 - Pain in unspecified joint Category: Medical (7) Paresthesias: Code(s): R20.2 - Paresthesia of skin Category: Medical Plan For RICHARD: Reviewed results of home sleep study which showed mild obstructive sleep apnea with mild degree of nocturnal hypoxemia. Start APAP 5-20 cm H2O nightly greater than 4 hours. For migrainous headache: Patient has had not had any recent attacks, advised to notify us if these recur. Rest and Fluids at onset. Tx contraindications: Triptans- d/t HOCM Future considerations: gepant trial. For joint pain, leg cramps, and paresthesias: Check labs for common etiologies We will request rheumatology consult. f/u in 6 months or sooner prn. Orders: Orders MAGDALENE Reflex Titer and Pattern Today E11.9 - Type 2 diabetes mellitus without complications, M25.50 - Pain in unspecified joint, R20.2 - Paresthesia of skin, R53.83 - Other fatigue Vitamin B12 and Folate Today E11.9 - Type 2 diabetes mellitus without complications, M25.50 - Pain in unspecified joint, R20.2 - Paresthesia of skin, R53.83 - Other fatigue Comprehensive Met. Panel Today E11.9 - Type 2 diabetes mellitus without complications, M25.50 - Pain in unspecified joint, R20.2 - Paresthesia of skin, R53.83 - Other fatigue Vitamin B6 Today E11.9 - Type 2 diabetes mellitus without complications, M25.50 - Pain in unspecified joint, R20.2 - Paresthesia of skin, R53.83 - Other fatigue Vitamin D 25-OH (D2 and D3) Today E11.9 - Type 2 diabetes mellitus without complications, M25.50 - Pain in unspecified joint, R20.2 - Paresthesia of skin, R53.83 - Other fatigue Rheumatoid Factor Today E11.9 - Type 2 diabetes mellitus without complications, M25.50 - Pain in unspecified joint, R20.2 - Paresthesia of skin, R53.83 - Other fatigue Complete Blood Count Auto Diff Today E11.9 - Type 2 diabetes mellitus without complications, M25.50 - Pain in unspecified joint, R20.2 - Paresthesia of skin, R53.83 - Other fatigue TSH reflex Free T4 Today E11.9 - Type 2 diabetes mellitus without complications, M25.50 - Pain in unspecified joint, R20.2 - Paresthesia of skin, R53.83 - Other fatigue Magnesium Today E11.9 - Type 2 diabetes mellitus without complications, M25.50 - Pain in unspecified joint, R20.2 - Paresthesia of skin, R53.83 - Other fatigue Referrals Rheumatology Referral M25.50 - Pain in unspecified joint Coding Level of Care Code Est Pt Level 4 (29337) Diagnoses RICHARD (obstructive sleep apnea) G47.33 Excessive daytime sleepiness G47.19 Sleep difficulties G47.9 Obesity (BMI 30.0-34.9) E66.9 Migraine without aura and without status migrainosus, not intractable G43.009 Status migrainosus presence: without status migrainosus Intractability: not intractable Joint pain M25.50 Paresthesias R20.2
--- OUTSIDE RECORDS SUMMARY | 2024-10-04 08:37 | XMS_ITS | Clinical Summary ---
Author Organization [employer] Address [address] [place] [address] Care Team Providers Care Engineering Systems Analyst Name Role Phone Unavailable Primary Care Provider [...]
--- OUTSIDE RECORDS SUMMARY | 2024-10-04 08:37 | XMS_ITS | Clinical Summary ---
[facility] Organization [facility] Address [address] [place] [address] Care Team Providers Care Intermediate Designer Name Role Phone Handy Casillas MD Primary Care Provider [phone] Allergies Active Allergy Reactions Criticality Noted Date [...] sleep apnea 05/24/2017 Overview (06/16/2024): UNTREATED (10/26/22) [facility] Home Polysomnogram: Date 05/20/2017; AHI 18, Unclassified apneas 0; Obstructive apneas 28; Central apneas 4; Mixed apneas 0; hypopneas 58; average oxygen saturation 95% (lowest 83% without saturations <88% for 5% or more of study) [facility] Polysomnogram treatment study. Date 12/28/2017. SE 52 % SM 78 %; spent 12 % of the study in REM. On CPAP @ 12; RDI 0 (AHI 0), Central apneas 0; Obstructive apneas 0; Mixed apneas 0; hypopneas 0; RERAs 0; and, average oxygen saturation was 95%. For the entire study, PLMs ~59. [facility] Home Sleep Study 10/22/2021. Weight 214#; [...] Name Administration Dates Next Due Hepatitis B (Voinpxa-T-Deujn , Recombivax HB-Adult) 19yo and older 06/18/2010,03/05/2010,04/15/2009 [...] Surgery Date Site/Laterality Comments CHOLECYSTECTOMY 1999 PROCEDURE: [place] LAPAROSCOPY SURG CHOLECYSTECTOMY TONSILLECTOMY 11/2019 PROCEDURE: HISTORICAL [...] apnea 05/24/2017 DX:Obstr uctive sleep apnea; COMMENT: [facility] Home Polysomnogram: Date 05/20/2017; AHI 18, [...] Maintenance Results * Diabetes Eye Exam (11/02/2023) [facility] Diabetes: Annual Retina Eye Exam Abstracted Result [facility] Provider HEALTH MAINTENANCE Final Result * Urine Albumin Creatinine Ratio (10/12/2023) [facility] Urine Albumin Creatinine Ratio Abstracted Result [facility] Provider HEALTH MAINTENANCE Final Result * Annual BMP Blood Test (10/12/2023) [facility] Annual BMP Blood Test Abstracted Result [facility] Provider HEALTH MAINTENANCE Final Result * (ABNORMAL) Hemoglobin A1c (10/12/2023) [facility] Hemoglobin A1C 7.1(A) <=6.5 % Blood Venous blood specimen / Unknown Result [facility] Provider LAB BLOOD ORDERABLES Michelle l Result * (ABNORMAL) Lipid panel (10/12/2023) [facility] LDL/HDL Ratio 6(A) 0 - 4 [...] Recently Relevant to Health Maintenance Care Teams Intermediate Designer Relationship Specialty Start Date End Date Handy Casillas MD PCP - General Internal Medicine 10/10/13
== END 2024-10-04 09:12 | disposition home or self-care (01) ==
LOC: HO.HSMS 08:21
PROVIDERS: PCP Internal Medicine; Visit Provider Nurse Practitioner Family
DX: G47.33 Obstructive sleep apnea (adult) (pediatric) (principal); G47.19 Other hypersomnia; G47.9 Sleep disorder, unspecified; E66.9 Obesity, unspecified; G43.009 Migraine without aura, not intractable, without status migrainosus; M25.50 Pain in unspecified joint; R20.2 Paresthesia of skin
CPT/HCPCS: 99214

== ENCOUNTER 2024-10-04 08:21 | Outpatient (REF) | payer OTHER, SELFPAY ==
--- OUTSIDE RECORDS SUMMARY | 2024-10-04 10:13 | XMS_ITS | Clinical Summary ---
[facility] Address [address] [place] [address] Care Team Providers Care Oven Heater Name Role Phone Handy Casillas MD Primary Care Provider [phone] Allergies Active Allergy Reactions Criticality Noted Date [...] sleep apnea 05/24/2017 Overview (06/16/2024): UNTREATED (10/26/22) [facility] Home Polysomnogram: Date 05/20/2017; AHI 18, Unclassified apneas 0; Obstructive apneas 28; Central apneas 4; Mixed apneas 0; hypopneas 58; average oxygen saturation 95% (lowest 83% without saturations <88% for 5% or more of study) [facility] Polysomnogram treatment study. Date 12/28/2017. SE 52 % SM 78 %; spent 12 % of the study in REM. On CPAP @ 12; RDI 0 (AHI 0), Central apneas 0; Obstructive apneas 0; Mixed apneas 0; hypopneas 0; RERAs 0; and, average oxygen saturation was 95%. For the entire study, PLMs ~59. [facility] Home Sleep Study 10/22/2021. Weight 214#; [...] Name Administration Dates Next Due Hepatitis B (Frglhqn-T-Aqnex , Recombivax HB-Adult) 19yo and older 06/18/2010,03/05/2010,04/15/2009 [...] Surgery Date Site/Laterality Comments CHOLECYSTECTOMY 1999 PROCEDURE: [place] LAPAROSCOPY SURG CHOLECYSTECTOMY TONSILLECTOMY 11/2019 PROCEDURE: HISTORICAL [...] apnea 05/24/2017 DX:Obstr uctive sleep apnea; COMMENT: [facility] Home Polysomnogram: Date 05/20/2017; AHI 18, [...] Maintenance Results * Diabetes Eye Exam (11/02/2023) [facility] Diabetes: Annual Retina Eye Exam Abstracted Result [facility] Provider HEALTH MAINTENANCE Final Result * Urine Albumin Creatinine Ratio (10/12/2023) [facility] Urine Albumin Creatinine Ratio Abstracted Result [facility] Provider HEALTH MAINTENANCE Final Result * Annual BMP Blood Test (10/12/2023) [facility] Annual BMP Blood Test Abstracted Result [facility] Provider HEALTH MAINTENANCE Final Result * (ABNORMAL) Hemoglobin A1c (10/12/2023) [facility] Hemoglobin A1C 7.1(A) <=6.5 % Blood Venous blood specimen / Unknown Result [facility] Provider LAB BLOOD ORDERABLES Michelle l Result * (ABNORMAL) Lipid panel (10/12/2023) [facility] LDL/HDL Ratio 6(A) 0 - 4 [...] Recently Relevant to Health Maintenance Care Teams Oven Heater Relationship Specialty Start Date End Date Handy Casillas MD PCP - General Internal Medicine 10/10/13
--- OUTSIDE RECORDS SUMMARY | 2024-10-04 10:13 | XMS_ITS | Clinical Summary ---
Author Organization [employer] Address [address] [place] [address] Care Team Providers Care Roll Scale Worker Name Role Phone Unavailable Primary Care Provider [...] patient's age to complete this topic Insurance [facility] STANDARD
[2024-10-04 17:53] LABS: MANUAL DIFF FLAG NO
[2024-10-04 18:02] LABS: Basophils Absolute Auto 0.1 X10*3/uL (0.0-0.2); Basophils Percent Auto 1.3 % (0-2); Eosinophils Absolute Auto 0.2 X10*3/uL (0.0-0.4); Eosinophils Percent Auto 2.5 % (0-4); Hematocrit 45.1 % (42.0-52.0); Hemoglobin 15.1 g/dl (14.0-18.0); Imm Gran Abs Auto 0.01 X10*3/uL (0.00-0.03); Imm Gran Pct Auto 0.2 % (0.0-0.4); Lymphocytes Absolute Auto 1.6 X10*3/uL (1.2-4.9); Mean Corpuscular HGB Conc 33.5 g/dl (31.0-36.0); Mean Corpuscular Hemoglobin 29.3 pg (27.0-33.0); Mean Corpuscular Volume 87.6 fL (80.0-98.0); Monocytes Absolute Auto 0.4 X10*3/uL (0.1-1.2); Monocytes Percent Auto 7.2 % (2-11); Neutrophils Absolute Auto 3.7 x10*3/uL (2.0-8.3); Neutrophils Percent Auto 61.8 % (45-73); Platelet Count 235 X10*3/uL (160-400); Red Blood Count 5.15 X10*6/uL (4.60-5.80); Red Cell Distribution Width 13.6 % (11.0-16.0)
[2024-10-04 18:18] LABS: Rheumatoid Factor < 13.0 IU/mL (<15.0)
[2024-10-04 18:19] LABS: Alanine Aminotransferase 53 U/L (0-40); Albumin Level 4.3 g/dL (3.5-5.0); Alkaline Phosphatase 72 U/L (39-117); Anion Gap 9 (12-20); Aspartate Amino Transferase 33 U/L (5-37); Bilirubin Total 0.8 mg/dL (0.0-1.0); Blood Urea Nitrogen 10 mg/dL (9-16); Calcium 9.9 mg/dL (8.4-10.2); Carbon Dioxide 29 mmol/L (22-29); Chloride 105 mmol/L (96-108); Estimated Glomerular Filt Rate > 60; Glucose Random 137 mg/dL (60-115); Magnesium 2.1 mg/dL (1.6-2.6); Potassium 4.4 mmol/L (3.3-5.1); Sodium 139 mmol/L (135-145); Total Protein 7.4 g/dL (6.5-8.0)
[2024-10-04 18:34] LABS: TSH reflex Free T4 1.52 uIU/mL (0.32-4.0)
[2024-10-04 18:46] LABS: Folate 11.1 ng/mL (> or = 4.0); Vitamin B12 698 pg/mL (200-900)
[2024-10-06 15:13] LABS: Anti Nuclear Antibody Screen NEGATIVE (NEGATIVE)
[2024-10-08 14:29] LABS: Vitamin D 25-OH, D2 <4 ng/mL; Vitamin D 25-OH, D3 27 ng/mL; Vitamin D 25-OH, Total 27 ng/mL (30-100)
== END 2024-10-04 08:22 | disposition home or self-care (01) ==
LOC: HO.HKASLDS 08:21
PROVIDERS: PCP Internal Medicine; Visit Provider Nurse Practitioner Family
DX: G47.33 Obstructive sleep apnea (adult) (pediatric) (principal); G47.19 Other hypersomnia; G47.9 Sleep disorder, unspecified; E66.9 Obesity, unspecified; G43.009 Migraine without aura, not intractable, without status migrainosus; M25.50 Pain in unspecified joint; R20.2 Paresthesia of skin; E11.9 Type 2 diabetes mellitus without complications; R53.83 Other fatigue
CPT/HCPCS: 36415; 80053; 82306; 82607; 82746; 83735; 84207; 84443; 85025; 86038; 86431; 99212

== ENCOUNTER 2025-01-28 06:21 | Emergency (ER) | payer OTHER, SELFPAY ==
--- NOTE | ~2025-01-28 | XR_ITS ---
CLINICAL HISTORY: back pain 3 views lumbar spine Comparison: None provided Findings: Vertebral body heights and disc spaces are well-maintained. No acute fracture or subluxation is identified. Alignment is within normal limits. Cholecystectomy clips are present. IMPRESSION: Negative radiographic examination of the lumbar spine. This document has been electronically signed by: Damaris Walker on 01/28/2025 11:50:05
[2025-01-28 06:29] VITALS: BP 136/84; PULSE 61; RESP 20; TEMP 37; O2SAT 98; BMI 31.4
[2025-01-28 06:47] LABS: MANUAL DIFF FLAG NO
[2025-01-28 06:54] LABS: Hematocrit 42.1 % (42.0-52.0); Hemoglobin 14.8 g/dl (14.0-18.0); Imm Gran Abs Auto 0.01 X10*3/uL (0.00-0.03); Imm Gran Pct Auto 0.1 % (0.0-0.4); Lymphocytes Absolute Auto 2.5 X10*3/uL (1.2-4.9); Mean Corpuscular HGB Conc 35.2 g/dl (31.0-36.0); Mean Corpuscular Hemoglobin 29.4 pg (27.0-33.0); Mean Corpuscular Volume 83.7 fL (80.0-98.0); NRBC Abs Auto 0.000 X10*3/uL (0.0-0.012); NRBC Pct Auto 0.0 /100WBC (0.0-0.2); Platelet Count 200 X10*3/uL (160-400); Red Blood Count 5.03 X10*6/uL (4.60-5.80); White Blood Count 7.1 X10*3/uL (4.8-10.8)
[2025-01-28 07:01] LABS: Alanine Aminotransferase 58 U/L (0-40); Albumin Level 4.5 g/dL (3.5-5.0); Alkaline Phosphatase 75 U/L (39-117); Anion Gap 13 (12-20); Aspartate Amino Transferase 31 U/L (5-37); Blood Urea Nitrogen 12 mg/dL (9-16); Calcium 9.5 mg/dL (8.4-10.2); Carbon Dioxide 26 mmol/L (22-29); Chloride 106 mmol/L (96-108); Creatinine Clr Calc Pharmacy 95.5; Estimated Glomerular Filt Rate > 60; Potassium 4.3 mmol/L (3.3-5.1); Sodium 141 mmol/L (135-145); Total Protein 7.1 g/dL (6.5-8.0)
--- NOTE | 2025-01-28 09:56 | ED_ITS ---
HPI - Back Pain/Injury General Chief Complaint: Back Pain/Injury Stated Complaint: lower back pain Time Seen by Provider: 01/28/25 09:49 Source: patient and family Mode of arrival: ambulatory Limitations: no limitations History of Present Illness ED Provider: DR. Weems HPI Narrative: 49-year-old male came in for evaluation of low back pain that radiates to both sides of the abdomen and go down to both legs, patient declined any injury, no strenuous activity, no history of IV drug abuse, no fever, no chills. No dysuria, no frequency urination, no blood in the urine. No weakness, no numbness, no incontinence. Related Data Previous Rx's ?Medication ?Instructions ?Recorded cholecalciferol (vitamin D3) 1,250 1,250 mcg PO QWEEK 12 days #12 caps 10/15/24 mcg (50,000 unit) capsule cyclobenzaprine 10 mg tablet 10 mg PO TID PRN muscle s pasm #10 01/28/25 tabs ibuprofen 800 mg tablet 800 mg PO Q8H PRN pain #14 t abs 01/28/25 Allergies Allergy/AdvReac Type Severity Reaction Status Date / Time oxycodone (From PERCOCET) Allergy Intermediate Shortness Verified 01/28/25 06:31 of Breath Review of Systems 2 Review of Systems: All other systems are reviewed and are negative Constitutional: Reports as per HPI and Reports no additional constitutional complaints Eyes: Reports as per HPI and Reports no additional eye complaints Reports system reviewed and no additional complaints, except as documented Cardiovascular: Reports as per HPI and Reports no additional cardiovascular complaints Respiratory: Reports as per HPI and Reports no additional respiratory complaints Gastrointestinal: Reports as per HPI and Reports no additional gastrointestinal complaints Genitourinary: Reports no additional female genitourinary complaints Musculoskeletal: Reports no additional musculoskeletal complaints Skin/Breast: Reports system reviewed and no additional complaints, except as docu Psychiatric: Reports no additional psychiatric complaints Endocrine: Reports no additional endocrine complaints Hematologic/Lymphatic: Reports no additional hematologic/lymphatic complaints Allergic/Immunologic: Reports no additional allergic/immunologic complaints Reports system reviewed and no additional complaints, except as documented and Reports Abnormal speech present [facility] Past Medical History Medical History Atypical chest pain COVID-19 Headache Diabetes Abnormal EKG Cough Bilateral flank pain Myalgia Surgical History History of back surgery History of tonsillectomy History of cholecystectomy Family History Family History Mother Brain cancer Father No problems noted. Social History Social History Alcohol intake: former Patient Tobacco Use Status: Never used Tobacco Advance Directives: No Advance Directives Information Provided: Yes Physical Exam 2 Vital Signs: Vital Signs: Last Vital Signs Temp 97.8 F 01/28/25 12:12 Pulse 57 01/28/25 12:12 Resp 16 01/28/25 12:12 BP 128/71 01/28/25 12:12 Pulse Ox 99 01/28/25 12:12 O2 Del Method Room Air 01/28/25 12:12 BMI result Body Mass Index 31.4 Vital signs have been reviewed and appear to be correct. Blood pressure elevated. Heart rate normal. Respiratory rate normal. Temperature normal. Oxygen saturation normal. Appearance: Alert. Oriented X3. No acute distress. Head: Normal external exam. Normocephalic. Atraumatic. No Arnett signs noted. No raccoon eyes noted Eyes: PERRLA. EOMI. Conjunctiva and sclera normal. Eyelids normal. ENT: TM's Normal. Pharynx normal. Uvula midline. Moist mucous membranes. No trismus noted. No drooling noted. No muffled voice noted. Neck: Normal inspection. Neck supple. FROM. No adenopathy. Thyroid Normal. No meningeal signs. No neck mass noted. CVS: Normal heart rate and rhythm. Heart sound normal. No murmurs noted. Pulses normal throughout. Respiratory: No respiratory distress. Painless inspiration. Breath sounds normal. No wheezes/rales/rhonchi noted. Chest nontender. No accessory muscle usage noted or decreased air movement noted. Abdomen: Soft and nontender. Bowel sounds normal in all 4 quadrants. No distention noted. No organomegaly noted. No visible injury noted. Back: No CVA tenderness. Full range of motion noted. Skin: Skin warm and dry. Normal skin color. Normal skin turgor. No rashes/lesions/lacerations noted. Extremities: No lower extremity edema. Extremities exhibit normal range of motion. Extremities nontender. Neuro: Oriented X 3. Cranial nerve exam: II-XII are grossly intact No motor deficit. No sensory deficit. Reflexes normal. Course Reevaluation(s) Reevaluation #1: Feels better after ibuprofen and muscle relaxant, UA is clear, x-ray lumbar spine shows no acute lumbar spine issue. Will discharge on ibuprofen and muscle relaxant. Time: 12:29 Medications Administered Discontinued Medications Generic Name Dose Route Start Last Admin Trade Name Leah PRN Reason Stop Dose Admin Cyclobenzaprine HCl 10 mg 01/28/25 09:55 01/28/25 10:15 Cyclobenzaprine Hcl 10 Mg Tablet PO 01/28/25 09:56 10 mg ONCE ONE Administration Ibuprofen 600 mg 01/28/25 09:55 01/28/25 10:14 Ibuprofen 600 Mg Tablet PO 01/28/25 09:56 600 mg ONCE ONE Administration Medical Decision Making Differential Diagnosis Differential Diagnoses: The differential diagnosis associated with the presentation includes (UTI, pyelonephritis, kidney stone, lumbar radiculopathy, myofascial pain.) Admission/Observation Consideration of admission/observation: Escalation of care including admission/observation considered Lab Data MDM Lab Attestation statement: I reviewed the patient's lab results. 01/28/25 06:42 01/28/25 06:42 Labs: Lab Results 01/28/25 01/28/25 Range/Units 06:42 11:12 WBC 7.1 (4.8-10.8) X10*3/uL RBC 5.03 (4.60-5.80) X10*6/uL Hgb 14.8 (14.0-18.0) g/dl Hct 42.1 (42.0-52.0) % MCV 83.7 (80.0-98.0) fL MCH 29.4 (27.0-33.0) pg MCHC 35.2 (31.0-36.0) g/dl RDW 12.9 (11.0-16.0) % Plt Count 200 (160-400) X10*3/uL MPV 10.4 (9.4-12.4) fL Immature Gran % (Auto) 0.1 (0.0-0.4) % Neut % (Auto) 54.7 (45-73) % Lymph % (Auto) 35.3 (20-40) % Antelope % (Auto) 7.1 (2-11) % Eos % (Auto) 2.1 (0-4) % Baso % (Auto) 0.7 (0-2) % Lymph # (Auto) 2.5 (1.2-4.9) X10*3/uL Antelope # (Auto) 0.5 (0.1-1.2) X10*3/uL Eos # (Auto) 0.2 (0.0-0.4) X10*3/uL Baso # (Auto) 0.1 (0.0-0.2) X10*3/uL Abs Immat Gran (auto) 0.01 (0.00-0.03) X10*3/uL Absolute Neuts (auto) 3.9 (2.0-8.3) x10*3/uL Absolute Nucleated RBC 0.000 (0.0-0.012) X10*3/uL Nucleated RBC % (auto) 0.0 (0.0-0.2) /100WBC Sodium 141 (135-145) mmol/L Potassium 4.3 (3.3-5.1) mmol/L Chloride 106 (96-108) mmol/L Carbon Dioxide 26 (22-29) mmol/L Anion Gap 13 (12-20) BUN 12 (9-16) mg/dL Creatinine 1.06 (0.5-1.4) mg/dL Estim Creat Clear Calc 95.5 Estimated GFR > 60 Random Glucose 135 H (60-115) mg/dL Calcium 9.5 (8.4-10.2) mg/dL Total Bilirubin 0.6 (0.0-1.0) mg/dL AST 31 (5-37) U/L ALT 58 H (0-40) U/L Alkaline Phosphatase 75 (39-117) U/L Total Protein 7.1 (6.5-8.0) g/dL Albumin 4.5 (3.5-5.0) g/dL Urine Color Dark Yellow Urine Appearance Clear Urine pH 5.5 (5.0-9.0) Ur Specific Grannis 1.015 (1.005-1.025) Urine Protein Negative (Neg-Trace) mg/dL Urine Glucose (UA) Negative (Negative) mg/dL Urine Ketones Negative (Negative) mg/dL Urine Blood Negative (Negative) Urine Nitrite Negative (Negative) Ur Leukocyte Esterase Negative (Negative) Urine RBC 0-2 (0-2) /HPF Urine WBC 0-5 (0-5) /HPF Ur Squamous Epith Cells 0-2 (0-2) /HPF Urine Bacteria None Seen (None Seen) Hyaline Casts 0-2 (0-2) /LPF Independent Interpretation I performed an independent interpretation of an: Plain X-Ray (Lumbar spine:Vertebral body heights and disc spaces are well-maintained. No acute fracture or subluxation is identified. Alignment is within normal limits. Cholecystectomy clips are present.) Radiology Impression Discussion of test interpretation with radiology: I have reviewed the radiologist's reading. Discharge Plan Discharge Clinical Impression: Strain of lumbar region Patient Disposition: Home, Self-Care Instructions: Muscle Strain (ED) Prescriptions: New ibuprofen 800 mg tablet 800 mg PO Q8H PRN (Reason: pain) Qty: 14 0RF cyclobenzaprine 10 mg tablet 10 mg PO TID PRN (Reason: muscle spasm) Qty: 10 0RF No Action cholecalciferol (vitamin D3) 1,250 mcg (50,000 unit) capsule 1,250 mcg PO QWEEK 12 Days Qty: 12 0RF Referrals: Handy Casillas III, MD [Primary Care Provider, Medical] Print Language: Nepali
[2025-01-28 10:06] VITALS: BP 124/74; PULSE 59; RESP 14; TEMP 36.4; O2SAT 99
[2025-01-28 11:19] LABS: Appearance Urine Clear; Glucose Urine UA Negative (Negative); PH 5.5 (5.0-9.0); Specific Gravity - Urine 1.015 (1.005-1.025)
[2025-01-28 12:12] VITALS: BP 128/71; PULSE 57; RESP 16; TEMP 36.6; O2SAT 99
[2025-01-28 12:35] VITALS: BP 128/71; PULSE 57; RESP 16; TEMP 36.6; O2SAT 99
== END 2025-01-28 12:35 | disposition home or self-care (01) ==
PROVIDERS: Emergency Provider Emergency Medicine; PCP Internal Medicine
DX: S39.012A Strain of muscle, fascia and tendon of lower back, initial encounter (principal); X58.XXXA Exposure to other specified factors, initial encounter; Y93.9 Activity, unspecified; Y92.9 Unspecified place or not applicable; Y99.9 Unspecified external cause status
CPT/HCPCS: 36415; 72100; 80053; 81001; 85025; 99283

== ENCOUNTER → 2025-01-28 09:55 | Outpatient (BNV) | payer OTHER, SELFPAY | PROVIDERS: Emergency Provider Emergency Medicine; PCP Internal Medicine; Visit Provider Radiology Vascular & Interventional Radiology | DX: M54.50 Low back pain, unspecified (principal) | CPT/HCPCS: 72100 ==

== ENCOUNTER → 2025-02-08 03:33 | Outpatient (BNV) | payer OTHER, SELFPAY | PROVIDERS: Emergency Provider Emergency Medicine; Visit Provider Radiology Diagnostic Radiology | DX: R07.89 Other chest pain (principal) | CPT/HCPCS: 71045 ==

== ENCOUNTER 2025-02-08 04:08 | Emergency (ER) | payer OTHER, SELFPAY ==
--- NOTE | 2025-02-08 | ECG_ITS ---
Test Reason : CP Blood Pressure : */* mmHG Vent. Rate : 83 BPM Atrial Rate : 83 BPM P-R Int : 158 ms QRS Dur : 84 ms QT Int : 372 ms P-R-T Axes : 50 19 170 degrees QTcB Int : 437 ms Normal sinus rhythm with sinus arrhythmia ST & T wave abnormality, consider anterolateral ischemia Abnormal ECG When compared with ECG of 20-Sep-2024 06:18, No significant change was found Referred By: Generic ED Physician Electronically Signed By: MADHU MCKEON
--- NOTE | ~2025-02-08 | XR_ITS ---
CLINICAL HISTORY: pain chest CHEST X-RAY FRONTAL VIEW COMPARISON: 09/20/2024. FINDINGS: A single frontal view of the chest was performed. The cardiac size and mediastinal silhouette are within normal limits. The lungs are clear. There are no acute infiltrates or pleural effusions. There is no pneumothorax. IMPRESSION: 1. No acute disease. This document has been electronically signed by: Nader Bowling M.D. on 02/08/2025 05:33:12
[2025-02-08 04:18] VITALS: BP 138/76; PULSE 65; RESP 22; TEMP 36.7; O2SAT 99; BMI 32.6
[2025-02-08 04:20] LABS: MANUAL DIFF FLAG NO
--- NOTE | 2025-02-08 04:20 | PC.NURSE ---
Ekg brought to provider Ky
[2025-02-08 04:21] LABS: Hematocrit 43.4 % (42.0-52.0); Hemoglobin 15.3 g/dl (14.0-18.0); Imm Gran Abs Auto 0.02 X10*3/uL (0.00-0.03); Imm Gran Pct Auto 0.2 % (0.0-0.4); Lymphocytes Absolute Auto 3.2 X10*3/uL (1.2-4.9); Mean Corpuscular HGB Conc 35.3 g/dl (31.0-36.0); Mean Corpuscular Hemoglobin 29.3 pg (27.0-33.0); Mean Corpuscular Volume 83.1 fL (80.0-98.0); NRBC Abs Auto 0.000 X10*3/uL (0.0-0.012); NRBC Pct Auto 0.0 /100WBC (0.0-0.2); Platelet Count 214 X10*3/uL (160-400); Red Blood Count 5.22 X10*6/uL (4.60-5.80); White Blood Count 9.4 X10*3/uL (4.8-10.8)
[2025-02-08 04:27] LABS: INTERNATIONAL NORM RATIO 1.0 (0.9-1.1); Prothrombin Time 11.1 SEC (10.9-12.4)
[2025-02-08 04:37] LABS: Alanine Aminotransferase 58 U/L (0-40); Albumin Level 4.8 g/dL (3.5-5.0); Alkaline Phosphatase 76 U/L (39-117); Anion Gap 13 (12-20); Aspartate Amino Transferase 34 U/L (5-37); Blood Urea Nitrogen 17 mg/dL (9-16); Calcium 9.6 mg/dL (8.4-10.2); Carbon Dioxide 24 mmol/L (22-29); Chloride 103 mmol/L (96-108); Creatinine Clr Calc Pharmacy 75.5; Estimated Glomerular Filt Rate 59; Potassium 3.4 mmol/L (3.3-5.1); Sodium 137 mmol/L (135-145); Total Protein 7.8 g/dL (6.5-8.0)
[2025-02-08 04:40] LABS: Troponin-I High Sensitivity 16.0 ng/L (<3.5-35.0)
--- OUTSIDE RECORDS SUMMARY | 2025-02-08 04:45 | XMS_ITS | Clinical Summary ---
[facility] Organization [facility] Address [address] [place] [address] Care Team Providers Care Closing Coordinator Name Role Phone Handy Casillas MD Primary Care Provider [phone] Allergies Active Allergy Reactions Criticality Noted Date Comments Oxycodone Low 05/17/2023 Other Reaction(s): UNKNOWN Oxycodone-Acetaminophen 10/10/2013 Rapid heart rate Medications acetaminophen (TYLENOL) 500 mg tablet Take 2 tablets (1,000 mg total) by mouth every 8 (eight) hours. 10/13/2023 Active FREESTYLE LANCETS MISC Used to check glucose levels once daily. 02/02/2023 Active blood sugar diagnostic (FreeStyle Lite Strips) test strip Used to check glucose levels once daily. 02/02/2023 Active Active Problems Problem Noted Date Diagnosed Date Type 2 diabetes mellitus wit h obesity ([facility] V24, [facility] V28) 11/17/2021 Elevated LFTs 11/20/2020 Obesity (BMI 30-39.9) 11/14/2018 Obstructive sleep apnea 05/24/2017 Overview (06/16/2024): UNTREATED (10/26/22) [facility] Home Polysomnogram: Date 05/20/2017; AHI 18, [...] 95%. For the entire study, PLMs ~59. [facility] Home Sleep Study 10/22/2021. Weight 214#; [...] Name Administration Dates Next Due Hepatitis B (Chfyqby-I-Kkmsa , Recombivax HB-Adult) 19yo and older 06/18/2010,03/05/2010,04/15/2009 [...] Surgery Date Site/Laterality Comments CHOLECYSTECTOMY 1999 PROCEDURE: [place] LAPAROSCOPY SURG CHOLECYSTECTOMY TONSILLECTOMY 11/2019 PROCEDURE: HISTORICAL [...] apnea 05/24/2017 DX:Obstr uctive sleep apnea; COMMENT: [facility] Home Polysomnogram: Date 05/20/2017; AHI 18, Unclassified apneas 0; Obstructive apneas 28; Central apneas 4; Mixed apneas 0; hypopneas 58; average oxygen saturation 95% (lowest 83% without saturations <88% for 5% or more of study) Obstructive sleep apnea - moderate; mostly hypopneas with obstructive apneas; no sleep related hypoxia by 2017 home polysomnogram. Family History Medical History Relation [...] 11/16/2023 4:05 PM EDT Plan of Treatment Upcoming Encounters Date Type Department Care Team (Late st Contact Info) Description 02/14/2025 9:00 AM EDT Office Visit Adult Medicine [facility] [address] [place] [id number] Handy Casillas MD [address] [place] [id number] Health Maintenance Due Date Last Done Comments Diabetes: Annual Foot Exam 1984 HIV Screening 05/23/2022 Hepatitis C Screening 05/23/2022 Social Influencers of Health Screening 05/23/2022 COVID-19 Vaccine ( season) 2024 Zoster Vaccines (1 of 2) 2024 Diabetes: Blood Sugar Control Test (HGBA1C) 04/12/2024 10/12/2023, 10/12/2023 Depression Screening 06/14/2024 Diabetes: Annual Urine Albumin-Creatinine Ratio (uACR) 10/11/2024 10/12/2023 Diabetes: Annual GFR (Glomerular Filtration Rate) 10/11/2024 10/12/2023, 10/12/2023 Diabetes: Annual Retina Eye Exam 11/01/2024 11/02/2023 Influenza Vaccine (#1) 2025 5, 03/20/2014, 03/31/2013, Additional history exists Colorectal Cancer Screening: Colonoscopy 05/25/2026 05/25/2023 DTaP,Tdap,and Td Vaccines (3 - Td or Tdap) 03/24/2027 03/24/2017, 09/12/2007 Cholesterol Screening (Lipid Panel) 10/11/2028 10/12/2023, 10/12/2023 Hepatitis B Vaccines Completed 06/18/2010, 03/05/2010, 04/15/2009 Pneumococcal Vaccine: 50+ Years Completed 11/16/2023 HIB Vaccines Aged Out No [...] Maintenance Results * Diabetes Eye Exam (11/02/2023) Pathologist [facility] Diabetes: Annual Retina Eye Exam Abstracted Result [facility] Provider HEALTH MAINTENANCE Final Result * Urine Albumin Creatinine Ratio (10/12/2023) [facility] Urine Albumin Creatinine Ratio Abstracted Result [facility] HEALTH MAINTENANCE Final Result * Annual BMP Blood Test (10/12/2023) [facility] Annual BMP Blood Test Abstracted Result [facility] Provider HEALTH MAINTENANCE Final Result * (ABNORMAL) Hemoglobin A1c (10/12/2023) [facility] Hemoglobin A1C 7.1(A) <=6.5 % Blood Venous blood specimen / Unknown Result [facility] LAB BLOOD ORDERABLES Michelle l Result * (ABNORMAL) Lipid panel (10/12/2023) LDL/HDL Ratio 6(A) 0 - 4 Triglycerides 194(A) 0 - 150 mg/dL Cholesterol 194 0 - 200 mg/dL HDL 35(A) >=40 mg/dL LDL Cholesterol 121(A) 0 - 100 mg/dL Blood Venous blood specimen / Unknown Historical Provider LAB BLOOD ORDERABLES Michelle l Result * Colonoscopy (05/25/2023) Colonoscopy No Interpretation , Abstracted Anatomical Region Laterality Modality Other us Historical Provider HEALTH MAINTENANCE Final Result from Last 3 Months or Most Recently Relevant to Health Maintenance [place] [address] [place] [address] [employer] PLAN Care Teams Closing Coordinator Relationship Specialty Start Date End Date Handy Casillas MD [address] [place] [id number] PCP - General Internal Medicine 10/10/13
--- OUTSIDE RECORDS SUMMARY | 2025-02-08 04:45 | XMS_ITS | Clinical Summary ---
Author Organization [facility] Address [address] [place] [phone] Phone Care Team Providers Care Station Attendant Name Role Phone Handy Casillas MD Primary Care Provider + Allergies Active Allergy Reactions Criticality Noted Date Comments Oxycodone-Acetaminophen 08/03/2019 Medications acetaminophen (TYLENOL) 500 mg capsule Take 1,000 mg by mouth every 8 (eight) hours as needed for pain (specific location in comments). Active naproxen (EC NAPROSYN) 500 MG EC tablet Take 500 mg by mouth 2 (two) times a day as needed. Active Family History Medical History Relation Comments Asthma Father Brain tumor Mother Asthma Son Eczema Son Relation Status Comments Father Mother Son Social History Tobacco Use Types Packs/Day Years Used Date Smoking Tobacco: Never Assessed Education Answer Date Recorded Are you interested in more education? Not on liya e 10/09/2022 Are you concerned about learning? Not on file 10/09/2022 No 10/09/2022 No 10/09/2022 Digital Access Answer Date Recorded No 11/10/2022 No 11/10/2022 Reliable internet access at home? Not on file 11/10/2022 Device with a working camera? Not on file Sex and Gender Information Value Date Recorded Sex Assigned at Male 08/03/2019 2:04 PM EST Legal Sex Male 1:48 PM EST Gender Identity Male 08/03/2019 2:04 PM EST Sexual Orientation Straight 08/03/2019 2: 04 PM EST Last Filed Vital Signs Vital Sign Reading Time Taken Comments Blood Pressure 137/78 08/03/2019 2:01 PM EST Pulse 75 08/03/2019 2:01 PM EST Temperature 35.4 C (95.7 F) 08/03/2019 2:01 PM EST Respiratory Rate 18 08/03/2019 2:01 PM EST Oxygen Saturation 100% 08/03/2019 2:01 PM EST Inhaled Oxygen Concentration - - Weight 95.3 kg (210 lb) 08/03/2019 2:01 PM EST Height 170.2 cm (5' 7 ) 08/03/2019 2:01 PM EST Body Mass Index 32.89 08/03/2019 2:01 PM EST Plan of Treatment Health Maintenance Due Date Last Done Comments DEPRESSION SCREENING 1986 SMOKING Hx and SMOKELESS TOBACCO SCREENING 1987 HEPATITIS C SCREENING 1992 HIV ONE-TIME SCREENING (18-6 5 YEARS) 1992 COLOGUARD 2019 COLONOSCOPY 2019 COLORECTAL CANCER SCREENING 2019 FIT TEST 2019 FOBT 2019 SIGMOIDOSCOPY 2019 VIRTUAL COLONOSCOPY 2019 COVID-19 VACCINE (1 - 2023-2 5 season) 2024 PNEUMOCOCCAL VACCINES (50+ years) (1 of 1 - PCV) 2024 ZOSTER VACCINES (1 of 2) 2024 Adult Td,Tdap Booster 03/24/2027 03/24/2017 , 09/12/2007 LIPID PANEL 10/11/2028 10/12/2023 HEPATITIS A VACCINES Aged Out No long er eligible based on patient's age to complete this topic HIB VACCINES Aged Out No longer eligi ble based on patient's age to complete this topic MENINGOCOCCAL VACCINES (ACWY) Aged Out No longer eligible based on patient's age to complete this topic MENINGOCOCCAL VACCINES (B) Aged Out N o longer eligible based on patient's age to complete this topic Medical Devices Not on file Insurance [facility] [employer] [place] [address] [place] [id number] ALLANCE ACO [facility] ALLANCE [employer]CO [facility] ALLANCE ACO [facility] ACO Care Teams Station Attendant Relationship Specialty Start Date End Date Handy Casillas MD [address] [place] [phone] PCP - General Internal Medicine 08/03/19 Additional Source Comments The information contained in this document represents components of the legal health record. It is not the complete legal health record.[facility]
--- OUTSIDE RECORDS SUMMARY | 2025-02-08 04:45 | XMS_ITS ---
[facility] Care Team Organization Name Specialty Phone Email Start Date End Da te [facility] NICHOLAS LES Primary Care 04/21/2022 4
--- OUTSIDE RECORDS SUMMARY | 2025-02-08 04:45 | XMS_ITS | Clinical Summary ---
Author Organization [employer] Address [address] [place] [address] Care Team Providers Care Machine Tool Builder Name Role Phone Unavailable Primary Care Provider [...] Panel 1974 SDOH Screening 1974 Sigmoidoscopy 1974 Disability Screening 1974 Alcohol/Substance Use Screening 1986 Tobacco Screening 1986 Family Planning (PISQ) 1989 Hepatitis C Screening 1992 DTaP/Tdap/Td Vaccines (1 - Tdap) 1993 Hepatitis B Vaccines (1 of 3 - 19+ 3-dose series) 1993 COVID-19 Vaccine ( - 2023-2 5 season) 2024 Pneumococcal Vaccine: 50+ Ye ars (1 of 1 - PCV) 2024 Zoster Vaccines (1 of 2) 2024 Influenza Vaccine (#1) 2025 RSV Patients and Pa tients Aged 60 [...] patient's age to complete this topic Insurance [facility] STANDARD
--- NOTE | 2025-02-08 04:46 | ED.CHESTPAIN ---
HPI - Chest Pain General Chief Complaint: Chest Pain Stated Complaint: Chest Pain Time Seen by Provider: 02/08/25 04:27 Source: patient and family Mode of arrival: ambulatory Limitations: no limitations History of Present Illness ED Provider: DR. Weems HPI narrative: 49-year-old male PMHx arthralgia, prediabetes, RICHARD, hypertrophic obstructive cardiomyopathy, abnormal EKGs, patient presented today for 3 days' history of epigastric pain that radiates to the right shoulder, lightheadedness, no nausea, no vomiting, no shortness of breath. Related Data Previous Rx's ?Medication ?Instructions ?Recorded cholecalciferol (vitamin D3) 1,250 1,250 mcg PO QWEEK 12 days #12 caps 10/15/24 mcg (50,000 unit) capsule cyclobenzaprine 10 mg tablet 10 mg PO TID PRN muscle spasm #10 01/28/25 tabs ibuprofen 800 mg tablet 800 mg PO Q8H PRN pain #14 tabs 01/28/25 Allergies Allergy/AdvReac Type Severity Reaction Status Date / Time oxycodone (From PERCOCET) Allergy Intermediate Shortness Verified 02/08/25 04:20 of Breath Review of Systems Review of Systems: All other systems are reviewed and are negative Constitutional: Reports as per HPI and Reports no additional constitutional complaints Eyes: Reports as per HPI and Reports no additional eye complaints Reports system reviewed and no additional complaints, except as documented Cardiovascular: Reports as per HPI and Reports no additional cardiovascular complaints Respiratory: Reports as per HPI and Reports no additional respiratory complaints Gastrointestinal: Reports as per HPI and Reports no additional gastrointestinal complaints Genitourinary: Reports no additional female genitourinary complaints Musculoskeletal: Reports no additional musculoskeletal complaints Skin/Breast: Reports system reviewed and no additional complaints, except as docu Psychiatric: Reports no additional psychiatric complaints Endocrine: Reports no additional endocrine complaints Hematologic/Lymphatic: Reports no additional hematologic/lymphatic complaints Allergic/Immunologic: Reports no additional allergic/immunologic complaints Reports system reviewed and no additional complaints, except as documented and Reports Abnormal speech present [facility] Past Medical History Medical History Atypical chest pain COVID-19 Headache Diabetes Abnormal EKG Cough Bilateral flank pain Myalgia Surgical History History of back surgery History of tonsillectomy History of cholecystectomy Family History Family History Mother Brain cancer Father No problems noted. Social History Social History Alcohol intake: former Patient Tobacco Use Status: Never used Tobacco Advance Directives: No Advance Directives Information Provided: Yes Do you have a plan to hurt others: No Plan Physical Exam Vital Signs: Vital Signs: Last Vital Signs Temp 98.0 F 02/08/25 04:18 Pulse 65 02/08/25 04:18 Resp 22 H 02/08/25 04:18 BP 138/76 02/08/25 04:18 Pulse Ox 99 02/08/25 04:18 O2 Del Method Room Air 02/08/25 04:18 BMI result Body Mass Index 32.6 Vital signs have been reviewed and appear to be correct. Blood pressure elevated. Heart rate normal. Respiratory rate normal. Temperature normal. Oxygen saturation normal. Appearance: Alert. Oriented X3. No acute distress. Head: Normal external exam. Normocephalic. Atraumatic. No Arnett signs noted. No raccoon eyes noted Eyes: PERRLA. EOMI. Conjunctiva and sclera normal. Eyelids normal. ENT: TM's Normal. Pharynx normal. Uvula midline. Moist mucous membranes. No trismus noted. No drooling noted. No muffled voice noted. Neck: Normal inspection. Neck supple. FROM. No adenopathy. Thyroid Normal. No meningeal signs. No neck mass noted. CVS: Normal heart rate and rhythm. Heart sound normal. No murmurs noted. Pulses normal throughout. Respiratory: No respiratory distress. Painless inspiration. Breath sounds normal. No wheezes/rales/rhonchi noted. Chest nontender. No accessory muscle usage noted or decreased air movement noted. Abdomen: Soft and nontender. Bowel sounds normal in all 4 quadrants. No distention noted. No organomegaly noted. No visible injury noted. Back: No CVA tenderness. Full range of motion noted. Skin: Skin warm and dry. Normal skin color. Normal skin turgor. No rashes/lesions/lacerations noted. Extremities: No lower extremity edema. Extremities exhibit normal range of motion. Extremities nontender. Neuro: Oriented X 3. Cranial nerve exam: II-XII are grossly intact No motor deficit. No sensory deficit. Reflexes normal. Course Reevaluation(s) Reevaluation #1: 3 days of epigastric pain radiating to the right shoulder, negative troponin, EKG RBBB with no change from prior. Otherwise patient feels better after was given Maalox and Pepcid Plan is discharge and follow-up with PCP. Time: 06:11 Medications Administered Discontinued Medications Generic Name Dose Route Start Last Admin Trade Name Freq PRN Reason Stop Dose Admin Al Hydroxide/Mg Hydroxide 30 ml 02/08/25 04:35 02/08/25 05:09 Magnesium Hydrox/Alum Hydrox 30 Ml Oral.Susp PO 02/08/25 04:36 30 ml ONCE ONE Administration Famotidine 20 mg 02/08/25 04:35 02/08/25 05:09 Famotidine/Pf 20 Mg/2 Ml Vial IVPUSH 02/08/25 04:36 20 mg ONCE ONE Administration Sodium Chloride 1,000 mls @ 999 mls/hr 02/08/25 04:35 02/08/25 05:09 Ns IV 02/08/25 05:35 999 mls/hr .Q1H1M ONE Administration Medical Decision Making Differential Diagnosis Differential Diagnoses: The differential diagnosis associated with the presentation includes (Acute gastritis, ACS, acute pancreatitis, pneumonia, pneumothorax, pleural effusion, dehydration, electrolyte derangement, severe anemia.) Admission/Observation Consideration of admission/observation: Escalation of care including admission/observation considered Lab Data MDM Lab Attestation statement: I reviewed the patient's lab results. 02/08/25 04:15 02/08/25 04:15 Labs: Lab Results 02/08/25 Range/Units 04:15 WBC 9.4 (4.8-10.8) X10*3/uL RBC 5.22 (4.60-5.80) X10*6/uL Hgb 15.3 (14.0-18.0) g/dl Hct 43.4 (42.0-52.0) % MCV 83.1 (80.0-98.0) fL MCH 29.3 (27.0-33.0) pg MCHC 35.3 (31.0-36.0) g/dl RDW 12.6 (11.0-16.0) % Plt Count 214 (160-400) X10*3/uL MPV 10.1 (9.4-12.4) fL Immature Gran % (Auto) 0.2 (0.0-0.4) % Neut % (Auto) 56.0 (45-73) % Lymph % (Auto) 33.7 (20-40) % Braxton % (Auto) 7.4 (2-11) % Eos % (Auto) 1.8 (0-4) % Baso % (Auto) 0.9 (0-2) % Lymph # (Auto) 3.2 (1.2-4.9) X10*3/uL Braxton # (Auto) 0.7 (0.1-1.2) X10*3/uL Eos # (Auto) 0.2 (0.0-0.4) X10*3/uL Baso # (Auto) 0.1 (0.0-0.2) X10*3/uL Abs Immat Gran (auto) 0.02 (0.00-0.03) X10*3/uL Absolute Neuts (auto) 5.3 (2.0-8.3) x10*3/uL Absolute Nucleated RBC 0.000 (0.0-0.012) X10*3/uL Nucleated RBC % (auto) 0.0 (0.0-0.2) /100WBC PT 11.1 (10.9-12.4) SEC INR 1.0 (0.9-1.1) Sodium 137 (135-145) mmol/L Potassium 3.4 D (3.3-5.1) mmol/L Chloride 103 (96-108) mmol/L Carbon Dioxide 24 (22-29) mmol/L Anion Gap 13 (12-20) BUN 17 H (9-16) mg/dL Creatinine 1.28 (0.5-1.4) mg/dL Estim Creat Clear Calc 75.5 Estimated GFR 59 Random Glucose 207 H (60-115) mg/dL Calcium 9.6 (8.4-10.2) mg/dL Total Bilirubin 0.7 (0.0-1.0) mg/dL AST 34 (5-37) U/L ALT 58 H (0-40) U/L Alkaline Phosphatase 76 (39-117) U/L Troponin I High Sens 16.0 D (<3.5-35.0) ng/L Total Protein 7.8 (6.5-8.0) g/dL Albumin 4.8 (3.5-5.0) g/dL Independent Interpretation I performed an independent interpretation of an: Plain X-Ray (Chest: No acute disease) Radiology Impression Discussion of test interpretation with radiology: I have reviewed the radiologist's reading. Discharge Plan Discharge Clinical Impression: Atypical chest pain Patient Disposition: Home, Self-Care Instructions: Noncardiac Chest Pain (ED) Prescriptions: No Action cholecalciferol (vitamin D3) 1,250 mcg (50,000 unit) capsule 1,250 mcg PO QWEEK 12 Days Qty: 12 0RF ibuprofen 800 mg tablet 800 mg PO Q8H PRN (Reason: pain) Qty: 14 0RF cyclobenzaprine 10 mg tablet 10 mg PO TID PRN (Reason: muscle spasm) Qty: 10 0RF Print Language: Wolof
[2025-02-08] MEDS: Magnesium Hydrox/Alum Hydrox 30 ML ORAL.SUSP PO (05:09)
[2025-02-08 05:30] VITALS: BP 138/76; PULSE 65; RESP 22; TEMP 36.7; O2SAT 99
[2025-02-08 07:06] VITALS: BP 135/88; PULSE 76; RESP 16; TEMP 36.9; O2SAT 99
== END 2025-02-08 07:07 | disposition home or self-care (01) ==
PROVIDERS: Emergency Provider Emergency Medicine
DX: R07.89 Other chest pain (principal); Z86.79 Personal history of other diseases of the circulatory system; Z79.899 Other long term (current) drug therapy
CPT/HCPCS: 36415; 71045; 80053; 84484; 85025; 85610; 93005; 96361; 96374; 99284; 99285; J1308

== ENCOUNTER → 2025-02-08 04:11 | Outpatient (BNV) | payer OTHER, SELFPAY | PROVIDERS: Emergency Provider Emergency Medicine; Visit Provider Internal Medicine | DX: R94.31 Abnormal electrocardiogram [ECG] [EKG] (principal); R07.9 Chest pain, unspecified | CPT/HCPCS: 93010 ==

== ENCOUNTER 2025-02-17 00:48 | Emergency (ER) | payer OTHER, SELFPAY ==
--- OUTSIDE RECORDS SUMMARY | 2025-02-14 09:00 | XMS_ITS | Encounter Summary ---
[facility] Address [address] [place] [address] Care Team Providers Care Child Development Associate Teacher Name Role Phone Handy Casillas MD Primary Care Provider [phone] Reason for Referral * Consultation (Routine) - Closed Specialty Diagnoses / Procedures Referred By Sami lr Referred To Contact Urology Diagnoses Benign prostatic hyperplasia with urinary hesitancy Handy Casillas MD [address] [place] [address] Phone: tel: fax: Shaheen Lauren MD [address] [place] [phone] Phone: tel: fax: Referral ID Status Reason Start Date Expiration Date V isits Requested Visits Authorized [id number] Closed Specialty Services Required 02/14/2025 02/14/2026 1 1 Reason for Visit * Reason Comments Annual Exam Encounter Details Date Type Department Care Team (Late st Contact Info) Description 02/14/2025 9:00 AM EDT Office Visit Adult Medicine [address] [phone] Handy Casillas MD [address] [place] [address] Routine physical examination (Primary Dx); Type 2 diabetes mellitus with obesity (CMS/HCC V24, CMS/HCC V28); Hypercholesterolemia ; Screening for malignant neoplasm of prostate; Encounter for long-term (current) use of medications; Chronic pain of right knee; Upper back pain; Benign prostatic hyperplasia with urinary hesitancy Social History Tobacco Use Types Packs/Day Years Used Date Smoking Tobacco: Never Smokeless Tobacco: Never Tobacco Cessation:Counseling Given: Not Answered Alcohol Use Standard Drinks/Week Comments No 0 (1 standard drink = 0.6 oz pur e alcohol) Housing Instability Answer Date Recorde d Are you worried that in the next 2 months you may not have stable housing? No 02/14/2025 Food Access & Nutrition Answer Date Rec orded Do you have access to a vari ety of food including fruits and vegetables? Yes 02/14/2025 Access to Healthcare Answer Date Record ed Within the last 3 months, ho w many times did you visit the emergency department for your medical care? 0 02/14/2025 Health Literacy Answer Date Recorded How often do you need to hav e someone help you when you read instructions, pamphlets, or other written material from your doctor or pharmacy? Never 02/14/2025 Caregiver: How often do you need to have someone help you when you read instructions, pamphlets, or other written material from your doctor or pharmacy? Not on file 02/14/2025 Transportation Answer Date Recorded Has the lack of transportati on kept you from meetings, work, or from getting things needed for daily living? No Has the lack of transportati on kept you from medical appointments or from getting medications? No 02/14/2025 Social Isolation Answer Date Recorded How often do you feel lonely or isolated from th ose around you? Never 02/14/2025 Food Risk Answer Date Recorded Within the past 12 months we worried whether our food would run out before we got money to buy more. Never true 02/14/2025 Within the past 12 months th e food we bought just didn't last and we didn't have money to get more. Never true 02/14/2025 Dependent Care Answer Date Recorded Do you need help finding or paying for care for your loved ones. For example, children's service worker or elderly care for an older adult? No 02/14/2025 Education Answer Date Recorded Do you think completing more education or training, like finishing a GED, going to college, or learning a trade, would be helpful for you? No 02/14/2025 Employment and Income Answer Date Recor ded During the last four weeks, have you been actively looking for work? No 02/14/2025 Living Situation Answer Date Recorded What is your living situation? 0 02/14/2025 Sex and Gender Information Value Date Recorded Sex Assigned at Not on file Legal Sex Male 4:54 AM EST Gender Identity Not on file Sexual Orientation Not on file documented as of this encounter Last Filed Vital Signs Vital Sign Reading Time Taken Comments Blood Pressure 122/72 02/14/2025 8:55 AM EDT Pulse 72 02/14/2025 8:55 AM EDT Temperature 36.6 C (97.8 F) 02/14/2025 8:55 AM EDT Respiratory Rate 14 02/14/2025 8:55 AM EDT Oxygen Saturation 98% 02/14/2025 8:55 AM EDT Inhaled Oxygen Concentration - - Weight 96.2 kg (212 lb) 02/14/2025 8:55 AM EDT Height 172.7 cm (5' 8 ) 02/14/2025 8:55 AM EDT Body Mass Index 32.23 02/14/2025 8:55 AM EDT documented in this encounter Ordered Prescriptions Prescription Sig Dispense Quantity Refills Last Filled Start Date End Date atorvastatin (LIPITOR) 10 mg tablet Take 1 tablet (10 mg total) by mouth 1 (one) time each day. 90 each 1 02/14/2025 02/14/2026 documented in this encounter Progress Notes * Handy Casillas MD - 02/14/2025 9:00 AM EDT CHIEF COMPLAINT: Annual Exam IDENTIFIER: Madhav Bear is a 49 y.o. old male. HPI: Patient presents today for annual physical exam. Pt last was 2023 Patient had colonoscopy 2022 (+) tubular adenoma patient to repeat colonoscopy 2025 Patient is due for shingles vaccine Pt with diabetes Pt is diet controlled Pt last a1c 7.1 09/2023 Pt not checking sugar Pt last ldl 121 09/2023 The 10-year ASCVD risk score (Shaina DK, et al., 2019) is: 10.2% Pt is not on statin Pt last microalb/cr ratio <30 Is not on luma/arb Pt notes bump under right knee, present x 4-5 year Pt notes the bump has increased in size, does has associated pain. Patient hx of lipoma removal Pt notes a new lump on knee present for aprox x one month pt does not some pain when standing ROS: GENERAL: Negative for malaise, significant weight loss and fever HEENT: No changes in hearing or vision. No nosebleeds or other nasal problems NECK: Negative for lumps, goiter, pain, and significant neck swelling RESPIRATORY: No cough, wheezing or shortness of breath CARDIOVASCULAR: Negative for chest pain, leg swelling and palpitations GI: Negative for abdominal discomfort, changes in bowel habits, blood in stool or black stools : urinary hesitancy did not tolerate flomax 2nd to tachycardia MUSCULOSKELETAL: See HPI and upper back pain worse when lying down radiated to the chest. Pt notes ice helps SKIN: No lesions, rash, or itching PSYCH: No sleep disturbances, depression or major stressors HEMATOLOGY/LYMPHOLOGY: No prolonged bleeding, easy bruising, or swollen lymph nodes ENDOCRINE: Negative for cold or heat intolerance, polyuria, polydipsia and goiter NEURO: No persistent headache, fainting, seizures, strokes, TIAs, weakness, numbness or tingling The remainder of review of systems is noncontributory. PAST MEDICAL HISTORY: Patient Active Problem List Diagnosis Date Noted Type 2 diabetes mellitus with obesity ([facility] V24, [facility] V28) 11/17/2021 Elevated LFTs 11/20/2020 Obesity (BMI 30-39.9) 11/14/2018 Obstructive sleep apnea 05/24/2017 Enlarged adenoids 04/13/2017 Perennial allergic conjunctivitis of both eyes 04/13/2017 Perennial allergic rhinitis 04/13/2017 SOCIAL HISTORY: Social History Tobacco Use Smoking status: Never Smokeless tobacco: Never Substance Use Topics Alcohol use: No FAMILY HISTORY: Family Status Relation Name Status Mother Father Alive Son Alive Brother Alive Brother Alive Sister Alive Sister Alive MGM MGF PGM PGF Daughter Alive Daughter Alive Daughter Alive No partnership data on file Family History Problem Relation Name Age of Onset Other cancer Mother brain tumor Asthma Father remote history as a child Asthma Son Eczema Son Other (Other: seasonal allergies) Son Other (Other: seafood allergy) Son ACTIVE MEDICATIONS: Outpatient Medications Marked as Taking for the 02/14/25 encounter (Office Visit) with Handy Casillas MD Medication Sig Dispense Refill tamsulosin (FLOMAX) 0.4 mg 24 hr capsule Take 1 capsule (0.4 mg total) by mouth 3 (three) times a week. Capsules should be taken 30 minutes following the same meal each day. ALLERGIES: Oxycodone-acetaminophen and Oxycodone PHYSICAL EXAM: Blood pressure 122/72, pulse 72, temperature 36.6 ??C (97.8 ??F), temperature source Temporal, resp. rate 14, height 1.727 m (68 ), weight 96.2 kg (212 lb), SpO2 98%. There is no height or weight on file to calculate BMI. BMI is greater than 25.0 (above the normal range) - see Plan APPEARANCE: Alert and in no acute distress EYES: PERRLA, conjunctiva and sclera normal EARS: External ears normal. Canals clear. TMs normal. NOSE/SINUS: Nares normal. Septum midline. Mucosa normal. No drainage or sinus tenderness MOUTH/THROAT: no erythema, lesions, or exudates NECK: Neck supple, no adenopathy, thyroid symmetric and of normal size HEART: RRR with normal S1 and S2, no murmurs, no gallops, no JVD appreciated CHEST: non-tender LUNG: clear to auscultation bilaterally LYMPH NODES: grossly normal ABDOMEN: Bowel sounds normoactive, no bruits and soft, non-tender, without organomegaly or palpablemasses BACK: no pain to palpation and good flexion and extension EXTREMITIES: Extremities warm and well perfused without clubbing, cyanosis, or edema and bony prominence distal right patella and sand size lesion on the patella around 11:00 NEURO: Awake, alert and oriented x 3 SKIN: Skin color, texture, turgor normal. No rashes or lesions. LABS/IMAGING: No results found for: WBC , HGB , HCT , MCV No results found for: NA , K , CO2 , CL , BUN , GLU , ALB , ALKPHOS , TP Lab Results Component Value Date CHOL 194 10/12/2023 LDL 121 (A) 10/12/2023 HDL 35 (A) 10/12/2023 TRIG 194 (A) 10/12/2023 IMPRESSION: 1. Routine physical examination 2. Type 2 diabetes mellitus with obesity (CMS/HCC V24, CMS/HCC V28) 3. Hypercholesterolemia 4. Screening for malignant neoplasm of prostate 5. Encounter for long-term (current) use of medications 6. Chronic pain of right knee 7. Upper back pain 8. Benign prostatic hyperplasia with urinary hesitancy PLAN: normal physical exam d/w pt monthly testicular exam and seatbelt use. Will check CBC, CMP,and FLP. D/w pt immunizations will immunize as needed d/w patient the risk and benefit of checking psa pt is willing to have test done Pt encouraged to present to local pharmacy if interested in the shingrix vaccine Pt with diabetes has been diet controlled last A1c 7.1. will update A1c today, pt will continue current diabetic regimen of diet but if A1c stil > 7.0 will initiate treatment most likely metformin. Last microalb/cr ratio <30 , will update microalbumin today pt is not on luma/arb Patient with high cholesterol ascvd risk > 7.5% will now start moderate intensity statin therapywith atorvastatin 10mg. Will update lipids and check lfts today Patient with prominent bony protuberance right knee and grain size lesion on patella will check xray Patient with bph does not tolerate flomax pt notes hesitancy which he finds bothersome will refer to urology Patient with upper back pain worse at night pt notes ice helps pt to continue will order thoracic xray for further evaluation Patient to f/u with me In 6 months Pt w/o fhx of cancer which would warrant genetic testing. No orders of the defined types were placed in this encounter. Handy Casillas MD on 02/14/2025 at 7:16 AM EDT documented in this encounter Plan of Treatment Scheduled Referrals Name Type Priority Associated Diagnoses Order Schedule Ambulatory referral to Urology Outpatient Referral Routine Benign prostatic hyperplasia with urinary hesitancy 1 Occurrences starting 02/14/2025 until 02/14/2026 documented as of this encounter Results * (ABNORMAL) Lipid panel with reflex to direct LDL (02/14/2025 10:16 AM EDT) Cholesterol 164 0 - 200 mg/dL LAB CHEMISTRY METHOD 02/14/2025 12:51 PM EDT [facility] Triglycerides 131 0 - 150 mg/dL LAB CHEMISTRY METHOD 02/14/2025 12:51 PM EDT [facility] HDL 34(L) >=40 mg/dL LAB CHEMISTRY METHOD 02/14/2025 12:51 PM EDT [facility] LDL Calculated 104(H) 0 - 100 mg/dL LAB CHEMISTRY METHOD 02/14/2025 12:51 PM EDT [facility] Comment:Estimated LDL Calcul ated using equation: Total cholesterol - HDL cholesterol - (Triglycerides/5) VLDL Cholesterol Adrien 26.2 mg/dL LAB CHEMISTRY METHOD 02/14/2025 12:51 PM EDT [facility] Non HDL Chol. (LDL+VLDL) 130 <145 mg/dL LAB CHEMISTRY METHOD 02/14/2025 12:51 PM EDT [facility] Chol/HDL Ratio 4.8(H) 0.0 - 4.4 LAB CHEMISTRY METHOD 02/14/2025 12:51 PM T [facility] Blood Venous blood specimen / Unknown Venipuncture / Unknown 02/14/2025 10:16 AM EDT 02/14/2025 10:16 AM EDT us Handy Casillas MD LAB BLOOD ORDERABLES Final Resu lt [facility] [address] [place] [address], * Prostate specific antigen screen (02/14/2025 10:16 AM EDT) PSA 0.92 0.00 - 4.00 ng/mL LAB CHEMISTRY METHOD 02/14/2025 1:29 PM EDT [facility] Blood Venous blood specimen / Unknown Venipuncture / Unknown 02/14/2025 10:16 AM EDT 02/14/2025 10:16 AM EDT Narrative [facility] - 02/14/2025 1:29 PM EDT The Siemens Advia Centaur Chemiluminescent Immunoassay is used. Results obtained with different assay methods or kits cannot be used interchangeably. Results cannot be interpreted as absolute evidence of the presence or absence of malignant disease. us Handy Casillas MD LAB BLOOD ORDERABLES Final Resu lt Performing Organization Address [facility]/ZIP Co de Phone Number [facility] [address] [place] [address], [place] [phone] * Microalbumin creatinine urine ratio (02/14/2025 10:16 AM EDT) Creatinine, Urine 245.0 mg/dL LAB CHEMISTRY METHOD 02/14/2025 2:14 PM EDT [facility] Microalb, Ur 26.6 0.0 - 29.0 mg/L LAB CHEMISTRY METHOD 02/14/2025 2:14 PM EDT [facility] Microalb/Creat Ratio 11 <30 mg/g creat LAB CHEMISTRY METHOD 02/14/2025 2:14 PM EDT [facility] Urine Urine specimen obtained by clean catch procedure / Unknown Non-blood Collection / Unknown 02/14/2025 10:16 AM EDT 02/14/2025 10:16 AM EDT us Handy Casillas MD LAB URINE ORDERABLES Final Resu lt Performing Organization Address [facility] Co de Phone Number [facility] [address] [place] [address], [place] [phone] * (ABNORMAL) Comprehensive metabolic panel (02/14/2025 10:16 AM EDT) Sodium 139 133 - 145 mmol/L LAB CHEMISTRY METHOD 02/14/2025 12:51 PM EDT [facility] Potassium 4.3 3.5 - 5.5 mmol/L LAB CHEMISTRY METHOD 02/14/2025 12:51 PM [facility] Chloride 104 96 - 110 mmol/L LAB CHEMISTRY METHOD 02/14/2025 12:51 PM [facility] CO2 32 21 - 32 mmol/L LAB CHEMISTRY METHOD 02/14/2025 12:51 PM [facility] Anion Gap 3 3 - 11 LAB CHEMISTRY METHOD 02/14/2025 12:51 PM [facility] Glucose 121(H) 70 - 100 mg/dL LAB CHEMISTRY METHOD 02/14/2025 12:51 PM [facility] BUN 14 5 - 25 mg/dL LAB CHEMISTRY METHOD 02/14/2025 12:51 PM [facility] Creatinine 1.17 0.70 - 1.30 mg/dL LAB CHEMISTRY METHOD 02/14/2025 12:51 PM [facility] eGFR 76 >=60 mL/min/1. 73m2 LAB CHEMISTRY METHOD 02/14/2025 12:51 PM [facility] Comment:Calculation based on the Chronic Kidney Disease Epidemiology Collaboration (CKD-EPI) equation refit without adjustment for race. BUN/Creatinine Ratio 12.0 LAB CHEMISTRY METHOD 02/14/2025 12:51 PM [facility] Calcium 9.7 8.5 - 10.5 mg/dL LAB CHEMISTRY METHOD 02/14/2025 12:51 PM [facility] AST (SGOT) 29 10 - 42 unit/L LAB CHEMISTRY METHOD 02/14/2025 12:51 PM [facility] ALT (SGPT) 57 10 - 60 unit/L LAB CHEMISTRY METHOD 02/14/2025 12:51 PM [facility] Alkaline Phosphatase 83 42 - 121 unit/L LAB CHEMISTRY METHOD 02/14/2025 12:51 PM [facility] Total Protein 7.6 6.0 - 8.0 g/dL LAB CHEMISTRY METHOD 02/14/2025 12:51 PM EDT [facility] Albumin 4.4 3.2 - 5.0 g/dL LAB CHEMISTRY METHOD 02/14/2025 12:51 PM EDT [facility] Total Bilirubin 0.8 0.0 - 1.4 mg/dL LAB CHEMISTRY METHOD 02/14/2025 12:51 PM EDT [facility] Blood Venous blood specimen / Unknown Venipuncture / Unknown 02/14/2025 10:16 AM EDT 02/14/2025 10:16 AM EDT us Handy Casillas MD LAB BLOOD ORDERABLES Final Resu lt Performing Organization Address City/[facility]/ZIP Co de Phone Number [facility] [address] [place] [address], [place] [phone] * (ABNORMAL) Hemoglobin A1c (02/14/2025 10:16 AM EDT) Hemoglobin A1C 6.7(H) <6.5 % LAB CHEMISTRY METHOD 02/14/2025 2:27 PM EDT [facility] Mean Bld Glu Estim. 146 mg/dL LAB CHEMISTRY METHOD 02/14/2025 2:27 PM EDT [facility] Blood Venous blood specimen / Unknown Venipuncture / Unknown 02/14/2025 10:16 AM EDT 02/14/2025 10:16 AM EDT us Handy Casillas MD LAB BLOOD ORDERABLES Final Resu lt [facility] [address] [place] [address], [place] [phone] * XR Thoracic Spine 2 Views (02/14/2025 10:01 AM EDT) Anatomical Region Laterality Modality Spine, T-spine Radiographic Marcela ging 02/14/2025 4:58 PM EDT Impressions 02/14/2025 4:59 PM EDT Minor curvature. Otherwise, unremarkable exam. -------- FINAL REPORT -------- Dictated By: Krystin Morris Dictated Date: 02/14/2025 16:58 ET Assigned Physician: Krystin Morris Reviewed and Electronically Signed By: Krystin Morris Signed Date: 02/14/2025 16:59 ET Workstation ID: [id number] Transcribed By: Self Edit Transcribed Date: 02/14/2025 16:58 ET Narrative 02/14/2025 4:59 PM EDT THORACIC SPINE, 2 VIEWS HISTORY: Upper back pain. Prior: Thoracic spine 09/23/2022. FINDINGS: There is minor curvature of the thoracic spine. No fractures are seen. Vertebral body heights are maintained. Visualized portions of the lungs are clear. No gross degenerative changes are seen. There are surgical clips in the right upper quadrant. Procedure Note Krystin Morris MD - 02/14/2025 THORACIC SPINE, 2 VIEWS HISTORY: Upper back pain. Prior: Thoracic spine 09/23/2022. FINDINGS: There is minor curvature of the thoracic spine. No fractures are seen. Vertebral body heights are maintained. Visualizedportions of the lungs are clear. No gross degenerative changes are seen. There are surgical clips in the right upper quadrant. IMPRESSION: Minor curvature. Otherwise, unremarkable exam. -------- FINAL REPORT -------- Dictated By: Krystin Morris Dictated Date: 02/14/2025 16:58 ET Assigned Physician: Krystin Morris Reviewed and Electronically Signed By: Krystin Morris Signed Date: 02/14/2025 16:59 ET Workstation ID: [id number] Transcribed By: Self Edit Transcribed Date: 02/14/2025 16:58 ET Handy Casillas MD IMG XR PROCEDURES Final Result documented in this encounter Visit Diagnoses Diagnosis Routine physical examination- Primary Routine general medical examination at a health care facility Type 2 diabetes mellitus with obesity (CMS/[facility] V24, [facility] V28) Hypercholesterolemia Pure hypercholesterolemia Screening for malignant neoplasm of prostate Encounter for long-term (current) use of medications Encounter for long-term (current) use of other medications Chronic pain of right knee Upper back pain Unspecified backache Benign prostatic hyperplasia with urinary hesitancy Upper back pain Unspecified backache documented in this encounter Historical Medications * This list may reflect changes made after this encounter. tamsulosin (FLOMAX) 0.4 mg 24 hr capsule Take 1 capsule (0.4 mg total) by mouth 3 (three) times a week. Capsules should be taken 30 minutes following the same meal each day. added in this encounter Additional Health Concerns Assessment Noted Time PHQ-9 Depression Total Score: 0 02/15/20 25 9:05 AM EDT documented as of this encounter Care Teams Child Development Associate Teacher Relationship Specialty Start Date End Date Handy Casillas MD [address] [place] [phone] PCP - General Internal Medicine 10/10/13 documented as of this encounter
--- OUTSIDE RECORDS SUMMARY | 2025-02-14 09:30 | XMS_ITS | Encounter Summary ---
Author Organization [facility] [place] [address] Care Team Providers Care Heel Sander Name Role Phone Handy Casillas MD Primary Care Provider [phone] Encounter Details Date Type Department Care Team (Latest Contact Info) Description 02/14/2025 9:30 AM EDT - 02/14/2025 11:59 PM EDT Hospital Encounter [facility] [address] [place] [phone] Upper back pain Discharge Disposition: Home or Self Care Social History Tobacco Use Types Packs/Day Years [...] for your loved ones. For example, children's program coordinator or elderly care for an older adult? [...] on file documented as of this encounter Medications at Time of Discharge acetaminophen (TYLENOL) 500 mg tablet Take 2 tablets (1,000 mg total) by mouth every 8 (eight) hours. 10/13/2023 atorvastatin (LIPITOR) 10 mg tablet Take 1 tablet (10 mg total) by mouth 1 (one) time each day. 90 each 1 02/14/2025 blood sugar diagnostic (FreeStyle Lite Strips) test strip Used to check glucose levels once daily. 02/02/2023 FREESTYLE LANCETS MISC Used to check glucose levels once daily. 02/02/2023 tamsulosin (FLOMAX) 0.4 mg 24 hr capsule Take 1 capsule (0.4 mg total) by mouth 3 (three) times a week. Capsules should be taken 30 minutes following the same meal each day. documented as of this encounter Discharge Disposition Disposition Code Departure Means Destination Home or Self Care documented in this encounter Plan of Treatment Not on file documented as of this encounter Procedures Procedure Name Priority Date/Time Associated Diagnosis Comments XR THORACIC SPINE 2 VIEWS Routine 02/14/2025 10:01 AM EDT Upper back pain documented in this encounter Results * XR Thoracic Spine 2 Views (02/14/2025 [...] Signed Date: 02/14/2025 16:59 ET Workstation ID: [id number] Transcribed By: Self Edit Transcribed Date: 02/14/2025 [...] Signed Date: 02/14/2025 16:59 ET Workstation ID: [id number] Transcribed By: Self Edit Transcribed Date: 02/14/2025 16:58 ET us Handy Casillas MD IMG XR PROCEDURES Final Result documented in this encounter Visit Diagnoses Diagnosis Upper back pain Unspecified backache documented in this encounter Additional Health Concerns Assessment Noted Time PHQ-9 Depression Total Score: 0 02/15/20 25 9:05 AM EDT documented as of this encounter Care Teams Heel Sander Relationship Specialty Start Date End Date Handy Casillas MD [address] [place] [phone] PCP - General Internal Medicine 10/10/13 documented as of this encounter
--- OUTSIDE RECORDS SUMMARY | 2025-02-14 09:31 | XMS_ITS | Encounter Summary ---
Author Organization [facility] [place] [address] Care Team Providers Care Engineering Leader Name Role Phone Handy Casillas MD Primary Care Provider [phone] Encounter Details Date Type Department Care Team (Latest Contact Info) Description 02/14/2025 9:31 AM EDT - 02/14/2025 11:59 PM EDT Hospital Encounter XRAY - [facility] [address] [place] [address] Chronic pain of right knee Discharge Disposition: Home or Self Care Social [...] care for your loved ones. For example, child care sitter or elderly care for an older adult? [...] Name Priority Date/Time Associated Diagnosis Comments XR KNEE 4+ VIEWS RIGHT Routine 02/14/2025 10:01 AM EDT Chronic pain of right knee documented in this encounter Results * XR Knee 4+ Views Right (02/14/2025 10:01 AM EDT) Anatomical Region Laterality Modality Lower Extremities, Knee Right [facility] 02/14/2025 4:5 7 PM EDT Impressions 02/14/2025 4:58 PM EDT Minor degenerative changes. No acute findings. -------- FINAL REPORT -------- Dictated By: Krystin Morris Dictated Date: 02/14/2025 16:57 ET Assigned Physician: Krystin Morris Reviewed and Electronically Signed By: Krystin Morris Signed Date: 02/14/2025 16:58 ET Workstation ID: [id number] Transcribed By: Self Edit Transcribed Date: 02/14/2025 16:57 ET Narrative 02/14/2025 4:58 PM EDT RIGHT KNEE VIEWS: 4. HISTORY: Tender bony prominence just distal to the patella. FINDINGS: No fracture or malalignment is seen. Soft tissues are normal. The patellae are normally positioned on the Merchant view. No joint effusion is seen. There is minor spurring of the lateral margin of each patella. Procedure Note Krystin Morris MD - 02/14/2025 RIGHT KNEE VIEWS: 4. HISTORY: Tender bony prominence just distal to the patella. FINDINGS: No fracture or malalignment is seen. Soft tissues are normal. The patellaeare normally positioned on the Merchant view. No joint effusion is seen.There is minor spurring of the lateral margin of each patella. IMPRESSION: Minor degenerative changes. No acute findings. -------- FINAL REPORT -------- Dictated By: Krystin Morris Dictated Date: 02/14/2025 16:57 ET Assigned Physician: Krystin Morris Reviewed and Electronically Signed By: Krystin Morris Signed Date: 02/14/2025 16:58 ET Workstation ID: [id number] Transcribed By: Self Edit Transcribed Date: 02/14/2025 16:57 ET us Handy Casillas MD IMG XR PROCEDURES Final Result documented in this encounter Visit Diagnoses Diagnosis Chronic pain of right knee documented in this encounter Additional Health Concerns Assessment Noted Time PHQ-9 Depression Total Score: 0 02/15/20 25 9:05 AM EDT documented as of this encounter Care Teams Engineering Leader Relationship Specialty Start Date End Date Handy Casillas MD [address] [place] [phone] PCP - General Internal Medicine 10/10/13 documented as of this encounter
[2025-02-17 00:51] VITALS: BP 159/92; PULSE 70; RESP 18; TEMP 36.3; O2SAT 98; BMI 31.5
--- NOTE | 2025-02-17 00:56 | ECG_ITS ---
Test Reason : CHEST PAIN Blood Pressure : */* mmHG Vent. Rate : 77 BPM Atrial Rate : 77 BPM P-R Int : 170 ms QRS Dur : 82 ms QT Int : 368 ms P-R-T Axes : 56 9 174 degrees QTcB Int : 416 ms Normal sinus rhythm ST & Marked T wave abnormality, consider anterolateral ischemia Abnormal ECG When compared with ECG of 08-Feb-2025 04:11, No significant change was found Referred By: Generic ED Physician Electronically Signed By: Jay Stroud
--- OUTSIDE RECORDS SUMMARY | 2025-02-17 01:03 | XMS_ITS | Clinical Summary ---
Author Organization [employer] Address [address] [facility] [address] [place] [address] Care Team Providers Care Sustainability Coordinator Name Role Phone Unavailable Primary Care Provider [...] of 3 - 19+ 3-dose series) 1993 Pneumococcal Vaccine: 50+ Ye ars (1 of 1 - PCV) 2024 Zoster Vaccines (1 of 2) 2024 COVID-19 Vaccine (1 - 2023-2 5 season) 2025 Influenza Vaccine (#1) 2025 RSV Patients and [...] patient's age to complete this topic Insurance [facility]
--- OUTSIDE RECORDS SUMMARY | 2025-02-17 01:03 | XMS_ITS | Clinical Summary ---
Author Organization [facility] [address] [place] [address] [place] [phone] Phone Care Team Providers Care Reel Man Name Role Phone Handy Casillas MD Primary Care Provider [phone] Allergies Active Allergy Reactions Criticality Noted Date Comments Oxycodone Low 05/17/2023 Other Reaction(s): UNKNOWN Oxycodone-Acetaminophen 10/10/2013 Rapid heart rate Medications acetaminophen (TYLENOL) 500 mg tablet Take 2 tablets (1,000 mg total) by mouth every 8 (eight) hours. 4 Active FREESTYLE LANCETS MISC Used to check glucose levels once daily. 3 Active blood sugar diagnostic (FreeStyle Lite Strips) test strip Used to check glucose levels once daily. 3 Active tamsulosin (FLOMAX) 0.4 mg 24 hr capsule Take 1 capsule (0.4 mg total) by mouth 3 (three) times a week. Capsules should be taken 30 minutes following the same meal each day. Active atorvastatin (LIPITOR) 10 mg tablet Take 1 tablet (10 mg total) by mouth 1 (one) time each day. 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 Date 12/28/2017. SE 52 % SM 78 %; spent 12 % of the study in REM. On CPAP @ 12; RDI 0 (AHI 0), Central apneas 0; Obstructive apneas 0; Mixed apneas 0; hypopneas 0; RERAs 0; and, average oxygen saturation was 95%. For the entire study, PLMs ~59. [facility] Home Sleep Study 10/22/2021. Weight 214#; BMI [...] both eyes 1 Perennial allergic rhinitis 04/13/2017 Encounters Date Type Department Care Team Description 02/14/2025 9:31 AM EDT - 02/14/2025 11:59 PM EDT Hospital Encounter [facility] [address] [place] [address] Chronic pain of right knee Discharge Disposition: Home or Self Care 02/14/2025 9:30 AM EDT - 02/14/2025 11:59 PM EDT Hospital Encounter [facility] [address] [place] [address] Upper back pain Discharge Disposition: Home or Self Care 02/14/2025 9:00 AM EDT Office Visit Adult Medicine [address] [phone] Handy Casillas MD Routine physical examination (Primary Dx); Type 2 diabetes mellitus with obesity (CMS/HCC V24, CMS/HCC V28); Hypercholesterolemia ; Screening for malignant neoplasm of prostate; Encounter for long-term (current) use of medications; Chronic pain of right knee; Upper back pain; Benign prostatic hyperplasia with urinary hesitancy from Last 3 Months Immunizations Name Administration Dates Next Due Hepatitis B (Aguqfcg-O-Gdynf , Recombivax HB-Adult) 19yo and older 06/18/2010,03/05/2010,04/15/2009 [...] Surgery Date Site/Laterality Comments CHOLECYSTECTOMY 1999 PROCEDURE: [place] LAPAROSCOPY SURG CHOLECYSTECTOMY TONSILLECTOMY 11/2019 PROCEDURE: HISTORICAL [...] apnea 05/24/2017 DX:Obstr uctive sleep apnea; COMMENT: [facility] Home Polysomnogram: Date 05/20/2017; AHI 18, Unclassified [...] for your loved ones. For example, child neurologist or elderly care for an older adult? [...] Mass Index 32.23 02/14/2025 8:55 AM EDT Plan of Treatment Health Maintenance Due Date Last Done Comments Diabetes: Annual Foot Exam 1984 HIV Screening 05/23/2022 Hepatitis C Screening 05/23/2022 Zoster Vaccines (1 of 2) 2024 Diabetes: Annual Retina Eye Exam 11/01/2024 11/02/2023 COVID-19 Vaccine ( season) 2025 Influenza Vaccine (#1) 2025 5, 03/20/2014, 03/31/2013, Additional history exists Diabetes: Blood Sugar Control Test (HGBA1C) 08/14/2025 02/14/2025, 10/12/2023, 10/12/2023 Diabetes: Annual Urine Albumin-Creatinine Ratio (uACR) 02/14/2026 02/14/2025, 10/12/2023 Diabetes: Annual GFR (Glomerular Filtration Rate) 02/14/2026 02/14/2025, 10/12/2023, 10/12/2023, Additional history exists Social Influencers of Health Screening 02/14/2026 02/14/2025 Colorectal Cancer Screening: Colonoscopy 05/25/2026 05/25/2023 DTaP,Tdap,and Td Vaccines (3 - Td or Tdap) 03/24/2027 03/24/2017, 09/12/2007 Cholesterol Screening (Lipid Panel) 02/14/2030 02/14/2025, 10/12/2023, 10/12/2023 Hepatitis B Vaccines Completed 06/18/2010, 03/05/2010, 04/15/2009 Pneumococcal Vaccine: 50+ Years Completed 11/16/2023 Depression Screening Completed 02/14/2025 HIB Vaccines Aged Out No longer eligi [...] Procedure Name Priority Date/Time Associated Diagnosis Comments CBC WITH AUTO DIFFERENTIAL Routine 02/14/2025 10:16 AM EDT Routine physical examination COMPREHENSIVE METABOLIC PANEL Routine 02/14/2025 10:16 AM EDT Routine physical examination Type 2 diabetes mellitus with obesity (CMS/[facility] V24, CMS/[facility] V28) Encounter for long-term (current) use of medications MICROALBUMIN CREATININE URINE RATIO Routine 02/14/2025 10:16 AM EDT Routine physical examination PROSTATE SPECIFIC ANTIGEN SCREEN Routine 02/14/2025 10:16 AM EDT Screening for malignant neoplasm of prostate LIPID PANEL WITH REFLEX TO DIRECT LDL Routine 02/14/2025 10:16 AM EDT Hypercholesterolemi a HEMOGLOBIN A1C Routine 02/14/2025 10:16 AM EDT Type 2 diabetes mellitus with obesity ([facility] V24, [facility] V28) CBC AND DIFFERENTIAL Routine 02/14/2025 10:16 AM EDT Routine physical examination XR THORACIC SPINE 2 VIEWS Routine 02/14/2025 10:01 AM EDT Upper back pain XR KNEE 4+ VIEWS RIGHT Routine 10:01 AM EDT Chronic pain of right knee DIABETES EYE EXAM Routine 11/02/2023 COLONOSCOPY Routine 05/25/2023 from Last 3 Months or Most Recently Relevant to Health Maintenance Results * Prostate specific antigen screen (02/14/2025 10:16 AM EDT) PSA 0.92 0.00 - 4.00 ng/mL LAB CHEMISTRY METHOD 02/14/2025 1:29 PM EDT [facility] Blood Venous blood specimen / Unknown Venipuncture / Unknown 02/14/2025 10:16 AM EDT 02/14/2025 10:16 AM EDT Narrative [facility] - 02/14/2025 1:29 PM EDT The Siemens Advia Centaur Chemiluminescent Immunoassay is used. Results obtained with different assay methods or kits cannot be used interchangeably. Results cannot be interpreted as absolute evidence of the presence or absence of malignant disease. us Handy Casillas MD LAB BLOOD ORDERABLES Final Resu lt Performing Organization Address City/[facility]/ZIP Co de Phone Number [facility] [address] [place] [address], [place] [phone] * (ABNORMAL) Lipid panel with reflex to direct LDL (02/14/2025 10:16 AM EDT) Cholesterol 164 0 - 200 mg/dL LAB CHEMISTRY METHOD 02/14/2025 12:51 PM EDT [facility] Triglycerides 131 0 - 150 mg/dL LAB CHEMISTRY METHOD 02/14/2025 12:51 PM EDT [facility] HDL 34(L) >=40 mg/dL LAB CHEMISTRY METHOD 02/14/2025 12:51 PM EDT [facility] LDL Calculated 104(H) 0 - 100 mg/dL LAB CHEMISTRY METHOD 02/14/2025 12:51 PM EDT [facility] Comment:Estimated LDL Calcul ated using equation: Total cholesterol - HDL cholesterol - (Triglycerides/5) VLDL Cholesterol Adrien 26.2 mg/dL LAB CHEMISTRY METHOD 02/14/2025 12:51 PM EDT [facility] Non HDL Chol. (LDL+VLDL) 130 <145 mg/dL LAB CHEMISTRY METHOD 02/14/2025 12:51 PM EDT [facility] Chol/HDL Ratio 4.8(H) 0.0 - 4.4 LAB CHEMISTRY METHOD 02/14/2025 12:51 PM EDT [facility] Blood Venous blood specimen / Unknown Venipuncture / Unknown 02/14/2025 10:16 AM EDT 02/14/2025 10:16 AM EDT us Handy Casillas MD LAB BLOOD ORDERABLES Final Resu lt [facility] [address] [place] [address], * CBC auto differential (02/14/2025 10:16 AM EDT) [facility] WBC 6.3 4.8 - 10.8 K/mcL LAB HEMETOLOGY METHOD 02/14/2025 12:27 PM [facility] RBC 5.30 4.50 - 5.50 M/mcL LAB HEMETOLOGY METHOD 02/14/2025 12:27 PM [facility] Hemoglobin 15.5 13.5 - 17.5 g/dL LAB HEMETOLOGY METHOD 02/14/2025 12:27 PM [facility] Hematocrit 45.5 42.0 - 54.0 % LAB HEMETOLOGY METHOD 02/14/2025 12:27 PM [facility] MCV 85.8 79.0 - 98.0 FL LAB HEMETOLOGY METHOD 02/14/2025 12:27 PM [facility] MCH 29.2 27.0 - 32.0 pcg LAB HEMETOLOGY METHOD 02/14/2025 12:27 PM [facility] MCHC 34.1 32.0 - 37.0 g/dL LAB HEMETOLOGY METHOD 02/14/2025 12:27 PM [facility] RDW 13.0 11.0 - 15.0 % LAB HEMETOLOGY METHOD 02/14/2025 12:27 PM [facility] Platelets 225 130 - 400 K/mcL LAB HEMETOLOGY METHOD 02/14/2025 12:27 PM [facility] MPV 10.7 7.0 - 11.0 FL LAB HEMETOLOGY METHOD 02/14/2025 12:27 PM [facility] NRBC 0.0 <1.0 % LAB HEMETOLOGY METHOD 02/14/2025 12:27 PM [facility] NRBC Absolute 0.00 <0.10 K/mcL LAB HEMETOLOGY METHOD 02/14/2025 12:27 PM [facility] Neutrophils Relative 61.6 % LAB HEMETOLOGY METHOD 02/14/2025 12:27 PM [facility] Lymphocytes Relative 27.2 % LAB HEMETOLOGY METHOD 02/14/2025 12:27 PM [facility] Monocytes Relative 7.8 % LAB HEMETOLOGY METHOD 02/14/2025 12:27 PM [facility] Eosinophils Relative 2.1 % LAB HEMETOLOGY METHOD 02/14/2025 12:27 PM [facility] Basophils Relative 1.0 % LAB HEMETOLOGY METHOD 02/14/2025 12:27 PM [facility] Immature Granulocytes Relative 0.3 % LAB HEMETOLOGY METHOD 02/14/2025 12:27 PM [facility] Neutrophils Absolute 3.88 1.50 - 7.00 K/mcL LAB HEMETOLOGY METHOD 02/14/2025 12:27 PM [facility] Lymphocytes Absolute 1.71 1.00 - 5.00 K/mcL LAB HEMETOLOGY METHOD 02/14/2025 12:27 PM [facility] Monocytes Absolute 0.49 0.20 - 1.00 K/mcL LAB HEMETOLOGY METHOD 02/14/2025 12:27 PM [facility] Eosinophils Absolute 0.13 0.00 - 0.50 K/mcL LAB HEMETOLOGY METHOD 02/14/2025 12:27 PM [facility] Basophils Absolute 0.06 0.00 - 0.20 K/mcL LAB HEMETOLOGY METHOD 02/14/2025 12:27 PM [facility] Immature Granulocytes Absolute 0.02 0.00 - 0.03 K/mcL LAB HEMETOLOGY METHOD 02/14/2025 12:27 PM EDT [facility] Blood Venous blood specimen / Unknown Venipuncture / Unknown 02/14/2025 10:16 AM EDT 02/14/2025 10:16 AM EDT us Handy Casillas MD LAB BLOOD ORDERABLES Final Resu lt Performing Organization Address [facility]/ZIP Co de Phone Number [facility] [address] [place] [address], [place] [phone] * Microalbumin creatinine urine ratio (02/14/2025 10:16 AM EDT) Creatinine, Urine 245.0 mg/dL LAB CHEMISTRY METHOD 02/14/2025 2:14 PM EDT [facility] Microalb, Ur 26.6 0.0 - 29.0 mg/L LAB CHEMISTRY METHOD 02/14/2025 2:14 PM EDT [facility] Microalb/Creat Ratio 11 <30 mg/g creat LAB CHEMISTRY METHOD 02/14/2025 2:14 PM EDT [facility] Urine Urine specimen obtained by clean catch procedure / Unknown Non-blood Collection / Unknown 02/14/2025 10:16 AM EDT 02/14/2025 10:16 AM EDT us Handy Casillas MD LAB URINE ORDERABLES Final Resu lt Performing Organization Address City/[facility]/ZIP Co de Phone Number [facility] [address] [place] [address], [place] [phone] * (ABNORMAL) Hemoglobin A1c (02/14/2025 10:16 AM EDT) Hemoglobin A1C 6.7(H) <6.5 % LAB CHEMISTRY METHOD 02/14/2025 2:27 PM EDT [facility] Mean Bld Glu Estim. 146 mg/dL LAB CHEMISTRY METHOD 02/14/2025 2:27 PM EDT [facility] Blood Venous blood specimen / Unknown Venipuncture / Unknown 02/14/2025 10:16 AM EDT 02/14/2025 10:16 AM EDT us Handy Casillas MD LAB BLOOD ORDERABLES Final Resu lt [facility] [address] [place] [address], * (ABNORMAL) Comprehensive metabolic panel (02/14/2025 10:16 AM EDT) Sodium 139 133 - 145 mmol/L LAB CHEMISTRY METHOD 02/14/2025 12:51 PM [facility] Potassium 4.3 3.5 - 5.5 mmol/L LAB CHEMISTRY METHOD 02/14/2025 12:51 PM [facility] Chloride 104 96 - 110 mmol/L LAB CHEMISTRY METHOD 02/14/2025 12:51 PM [facility] CO2 32 21 - 32 mmol/L LAB CHEMISTRY METHOD 02/14/2025 12:51 PM [facility] Anion Gap 3 3 - 11 LAB CHEMISTRY METHOD 02/14/2025 12:51 PM [facility] Glucose 121(H) 70 - 100 mg/dL LAB CHEMISTRY METHOD 02/14/2025 12:51 PM [facility] BUN 14 5 - 25 mg/dL LAB CHEMISTRY METHOD 02/14/2025 12:51 PM [facility] Creatinine 1.17 0.70 - 1.30 mg/dL LAB CHEMISTRY METHOD 02/14/2025 12:51 PM [facility] eGFR 76 >=60 mL/min/1. 73m2 LAB CHEMISTRY METHOD 02/14/2025 12:51 PM [facility] Comment:Calculation based on the Chronic Kidney Disease Epidemiology Collaboration (CKD-EPI) equation refit without adjustment for race. BUN/Creatinine Ratio 12.0 LAB CHEMISTRY METHOD 02/14/2025 12:51 PM EDT [facility] Calcium 9.7 8.5 - 10.5 mg/dL LAB CHEMISTRY METHOD 02/14/2025 12:51 PM [facility] AST (SGOT) 29 10 - 42 unit/L LAB CHEMISTRY METHOD 02/14/2025 12:51 PM EDT [facility] ALT (SGPT) 57 10 - 60 unit/L LAB CHEMISTRY METHOD 02/14/2025 12:51 PM [facility] Alkaline Phosphatase 83 42 - 121 unit/L LAB CHEMISTRY METHOD 02/14/2025 12:51 PM [facility] Total Protein 7.6 6.0 - 8.0 g/dL LAB CHEMISTRY METHOD 02/14/2025 12:51 PM T [facility] Albumin 4.4 3.2 - 5.0 g/dL LAB CHEMISTRY METHOD 02/14/2025 12:51 PM [facility] Total Bilirubin 0.8 0.0 - 1.4 mg/dL LAB CHEMISTRY METHOD 02/14/2025 12:51 PM [facility] Blood Venous blood specimen / Unknown Venipuncture / Unknown 02/14/2025 10:16 AM EDT 02/14/2025 10:16 AM EDT us Handy Casillas MD LAB BLOOD ORDERABLES Final Resu lt [facility] [address] [place] [address], * XR Thoracic Spine 2 Views (02/14/2025 [...] Signed Date: 02/14/2025 16:59 ET Workstation ID: [id number] Transcribed By: Self Edit Transcribed Date: 02/14/2025 [...] Signed Date: 02/14/2025 16:59 ET Workstation ID: [id number] Transcribed By: Self Edit Transcribed Date: 02/14/2025 16:58 ET us Handy Casillas MD IMG XR PROCEDURES Final Result * XR Knee 4+ Views Right (02/14/2025 10:01 AM EDT) Anatomical Region Laterality Modality Lower Extremities, Knee Right Radiogra phic Imaging 02/14/2025 4:57 PM EDT Impressions 02/14/2025 4:58 PM EDT Minor degenerative changes. No acute findings. -------- FINAL REPORT -------- Dictated By: Krystin Morris Dictated Date: 02/14/2025 16:57 ET Assigned Physician: Krystin Morris Reviewed and Electronically Signed By: Krystin Morris Signed Date: 02/14/2025 16:58 ET Workstation ID: [id number] Transcribed By: Self Edit Transcribed Date: 02/14/2025 [...] Signed Date: 02/14/2025 16:58 ET Workstation ID: [id number] Transcribed By: Self Edit Transcribed Date: 02/14/2025 16:57 ET Handy Casillas MD IMG XR PROCEDURES Final Result * Diabetes Eye Exam (11/02/2023) Diabetes: Annual Retina Eye Exam Abstracted Historical Provider HEALTH MAINTENANCE Final Result * Colonoscopy (05/25/2023) Colonoscopy No Interpretation , Abstracted Anatomical Region Laterality Modality Other us Historical Provider HEALTH MAINTENANCE Final Result from Last 3 Months or Most Recently Relevant to Health Maintenance Insurance [facility] [employer] Care Teams Reel Man Relationship Specialty Start Date End Date Handy Casillas MD [address] [place] [address] PCP - General Internal Medicine 10/10/13
--- OUTSIDE RECORDS SUMMARY | 2025-02-17 01:03 | XMS_ITS | Clinical Summary ---
Author Organization [facility] Address [address] [place] [phone] Phone Care Team Providers Care Supervisor Hot Dip Plating Name Role Phone Handy Casillas MD Primary [...] HEPATITIS C SCREENING 1992 HIV ONE-TIME SCREENING (18-65 YEARS) 1992 COLOGUARD 2019 COLONOSCOPY 2019 COLORECTAL CANCER SCREENING 2019 FIT TEST 2019 FOBT 2019 SIGMOIDOSCOPY 2019 VIRTUAL COLONOSCOPY 2019 PNEUMOCOCCAL VACCINES (50+ years) (1 of 1 - PCV) 2024 ZOSTER VACCINES (1 of 2) 2024 INFLUENZA VACCINE (#1) 2025 5, 03/20/2014, 03/31/2013, Additional history exists COVID-19 VACCINE ( season) 2025 Adult Td,Tdap Booster 03/24/2027 03/24/2017, 008 LIPID PANEL 10/11/2028 10/12/2023 HEPATITIS A VACCINES [...] topic Medical Devices Not on file Insurance [address] [place], [place] [address] [facility] [employer] [facility] [employer] [facility] [employer] [facility] [employer] Care Teams Supervisor Hot Dip Plating Relationship Specialty Start Date End Date Handy Casillas MD [address] [place] [phone] PCP - General Internal Medicine 08/03/19 Additional Source Comments The information contained in this document represents components of the legal health record. It is not the complete legal health record.[facility]
[2025-02-17 01:18] VITALS: BP 139/80; PULSE 62; RESP 18; O2SAT 96
[2025-02-17 01:18] LABS: Hematocrit 40.4 % (42.0-52.0); Hemoglobin 14.6 g/dl (14.0-18.0); Imm Gran Abs Auto 0.02 X10*3/uL (0.00-0.03); Imm Gran Pct Auto 0.2 % (0.0-0.4); Lymphocytes Absolute Auto 3.0 X10*3/uL (1.2-4.9); MANUAL DIFF FLAG NO; Mean Corpuscular HGB Conc 36.1 g/dl (31.0-36.0); Mean Corpuscular Hemoglobin 29.6 pg (27.0-33.0); Mean Corpuscular Volume 81.8 fL (80.0-98.0); NRBC Abs Auto 0.000 X10*3/uL (0.0-0.012); NRBC Pct Auto 0.0 /100WBC (0.0-0.2); Platelet Count 216 X10*3/uL (160-400); Red Blood Count 4.94 X10*6/uL (4.60-5.80); White Blood Count 8.3 X10*3/uL (4.8-10.8)
[2025-02-17 01:30] LABS: COVID-19 Test Negative (Negative); IDNOW Serial# 55D5AD1C
--- NOTE | 2025-02-17 01:49 | ED_ITS ---
HPI - General Adult General Chief complaint: General Medical Stated complaint: high cholesterol Time Seen by Provider: 02/17/25 01:17 Source: patient, family, RN notes reviewed and old records reviewed Mode of arrival: ambulatory Limitations: no limitations History of Present Illness ED Provider: Марина GOMEZ narrative: 49-year-old male past medical history significant for a hypertrophic obstructive cardiomyopathy, last echocardiogram of November 2023 with normal EF of 60-65%, diabetes, obstructive sleep apnea previous cholecystectomy, presents for evaluation of epigastric abdominal pain that radiates through to his back. He had the pain about a week ago with associated dizziness and he was seen here and ultimately discharged home on 02/08/2025. Notes that he went to bed about an hour prior to arrival feeling well and then woke up an hour later with the epigastric pain, radiating to his back and associated dizziness. He describes the dizziness as ?room is spinning. ? He has some nausea but no vomiting. Denies any history of coronary artery disease. He believes his on have had an GA in the past He denies any shortness of breath, palpitations. His pain is currently a 4/10 and described as a burning Related Data Previous Rx's ?Medication ?Instructions ?Recorded cholecalciferol (vitamin D3) 1,250 1,250 mcg PO QWEEK 12 days #12 caps 10/15/24 mcg (50,000 unit) capsule cyclobenzaprine 10 mg tablet 10 mg PO TID PRN muscle s pasm #10 01/28/25 tabs ibuprofen 800 mg tablet 800 mg PO Q8H PRN pain #14 t abs 01/28/25 famotidine 20 mg tablet (Pepcid) 20 mg PO BID #28 tabs 02/17/25 omeprazole 20 mg capsule,delayed 20 mg PO DAILY #14 ca ps 02/17/25 release Allergies Allergy/AdvReac Type Severity Reaction Status Date / Time oxycodone (From PERCOCET) Allergy Intermediate Shortness Verified 02/17/25 00:54 of Breath Review of Systems 2 Constitutional: Constitutional: Denies body ache(s), Denies chills, Denies fever(s) and Denies headache(s) Eyes: Eyes: Denies blurry vision, Denies exophthalmos and Denies floaters ENT: Reports vertigo, Reports dizziness and Denies headache(s) Cardiovascular: Cardiovascular: Reports chest pain, Reports chest pain at rest, Denies chest pain with activity, Reports Epigastric Pain and Denies dyspnea on exertion Respiratory: Respiratory: Denies cough and Denies dyspnea on exertion Gastrointestinal: Gastrointestinal: Denies abdominal pain, Denies nausea and Denies vomiting Musculoskeletal: Musculoskeletal: Denies back pain Neurologic: Reports vertigo, Reports dizziness and Denies headache(s) Psychiatric: Psychiatric: Denies anxiety PMFSH Past Medical History Medical History Atypical chest pain COVID-19 Headache Diabetes Abnormal EKG Cough Bilateral flank pain Myalgia Surgical History History of back surgery History of tonsillectomy History of cholecystectomy Family History Family History Mother Brain cancer Father No problems noted. Social History Social History Unable to assess alcohol history related to: Unknown Alcohol intake: never Patient Tobacco Use Status: Never used Tobacco Smoked in Last 30 Days: No Use of substances other than those prescribed or required for medical reasons: No Advance Directives: No Advance Directives Information Provided: Yes Do you have a plan to hurt others: No Plan Physical Exam ED Vital Signs: Vital Signs - 24 hr 02/17/25 00:51 02/17/25 01:18 Temperature 97.4 F Pulse Rate 70 62 Respiratory Rate 18 18 Blood Pressure 159/92 H 139/80 Pulse Oximetry 98 96 Oxygen Delivery Method Room Air Room Air BMI result Body Mass Index 31.5 Const General: healthy appearing, comfortable, no acute distress, alert and awake Nutritional Appearance: well nourished Orientation/consciousness: patient oriented x3 HENMT Head: Yes normocephalic and Yes atraumatic Eyes Eyelids: Yes eyelids normal Conjunctivae: conjunctivae normal Sclerae: sclerae normal Corneas: corneas normal Pupils: Equal, round and reactive pupils present EOM: EOMs intact bilaterally Neck Neck: Yes full ROM Resp Effort & Inspection: normal respiratory effort, able to speak in complete sentences, no audible wheezes and not labored Auscultation: clear to auscultation bilaterally Cardio Rate: regular rate Rhythm: regular rhythm GI Inspection: No distended Palpation (GI): Soft to palpation, not firm, Tenderness to palpation present (GI) in the epigastrum, in the LUQ and in the RUQ, no guarding and not rigid Skin General skin exam: elasticity normal Neuro General: patient oriented x3 Cranial nerves: Yes CN's II-XII intact bilaterally, Yes Equal, round and reactive pupils present and Yes Bilaterally intact EOM present Cognition (Neuro): normal cognition Gait exam (Neuro): Normal gait present and not ataxic Motor exam (neuro): 5/5 motor strength present throughout Coordination: [id number] test normal, [id number]-py-[id number] test normal, does not sway with eyes open, Romberg test negative, No Romberg test positive and Normal rapid alternating movements of the distal upper extremity present (Neuro) Extrem Other: Moving all extremities well without any obvious deformities Course Reevaluation(s) Reevaluation #1: The patient's workup thus far reassuring. He reports burping in his symptoms improved. He has a history of GERD and does not take any medication for it. I do feel his symptoms may be related to GERD today. We will treat with a GI cocktail as well. Time: 02:04 Reevaluation #2: 4:22 AM 02/17/2025 (Anthony CRESPO): Patient is signed out to this provider at shift change, in summary the patient is a 49-year-old male presenting to the ED for evaluation of recurrent chest pain for which he was evaluated in this ED on 02/08. Patient reports chest pain reoccurred while sleeping approximately 1 hour prior to arrival in the ED. patient's initial troponin was negative, EKG does show lateral T-wave changes but unchanged from previous. Per sign-out of initial provider patient's symptoms appear more closely related to GERD. However given the patient's onset of symptoms just prior to arrival in the ED, a repeat troponin was ordered and is pending at time of sign-out. At this time the patient's repeat troponin has resulted and is negative. Patient will be treated with prophylactic omeprazole and Pepcid and discharged to follow up with PCP. Medications Administered Discontinued Medications Generic Name Dose Route Start Last Admin Trade Name Freq PRN Reason Stop Dose Admin Al Hydroxide/Mg Hydroxide 30 ml 02/17/25 02:03 02/17/25 02:17 Magnesium Hydrox/Alum Hydrox 30 Ml Oral.Susp PO 02/17/25 02:04 30 ml ONCE ONE Administration Sodium Chloride 1,000 mls @ 999 mls/hr 02/17/25 01:45 02/17/25 02:17 Ns IV 02/17/25 02:45 999 mls/hr .Q1H1M LALO Administration Lidocaine HCl 15 ml 02/17/25 02:03 02/17/25 02:17 Lidocaine Hcl Viscous 2 % 15 Ml Solution MUCOUS MEM 02/17/25 02:04 15 ml ONCE ONE Administration Meclizine HCl 50 mg 02/17/25 01:39 02/17/25 02:17 Meclizine Hcl 25 Mg Tablet PO 02/17/25 01:40 50 mg ONCE ONE Administration Ondansetron HCl 4 mg 02/17/25 02:03 02/17/25 02:17 Ondansetron Hcl 4 Mg/2 Ml Vial IVPUSH 02/17/25 02:04 4 mg ONCE ONE Administration Medical Decision Making Medical Decision Making [facility] Narrative: 49-year-old male past medical history as above presents for evaluation of epigastric abdominal pain that radiates through to his back. He had a similar presentation about a week ago that improved. He reports waking up prior to arrival with almost identical presentation. He complains of chest pain that radiates through to his back and associated dizziness. On exam he has no neurologic deficits and a negative cerebellar exam. His Romberg is negative, no difficulty [id number]-[id number] testing or rapid alternating movements. He does complain of room spinning dizziness and this may be related to peripheral vertigo. Denies any headache or neck pain. His primary complaint is chest pain/epigastric pain. EKG obtained, we will repeat labs that were also performed last week. Differential Diagnosis Differential Diagnoses: The differential diagnosis associated with the presentation includes Chest pain Gastritis GERD Peptic ulcer disease Abdominal pain Perforated ulcer ACS less likely Hypertrophic cardiomyopathy Peripheral vertigo Admission/Observation Consideration of admission/observation: Escalation of care including admission/observation considered Lab Data [facility] Lab Attestation statement: I reviewed the patient's lab results. No leukocytosis or significant anemia. Normal platelet count. Troponin is within normal limits at 13.5 and actually decreased from 16.0 last week. 02/17/25 01:11 02/17/25 02:14 Labs: Lab Results 02/17/25 02/17/25 02/17/25 Range/Units 01:11 02:14 03:00 WBC 8.3 (4.8-10.8) X10*3/uL RBC 4.94 (4.60-5.80) X10*6/uL Hgb 14.6 (14.0-18.0) g/dl Hct 40.4 L (42.0-52.0) % MCV 81.8 (80.0-98.0) fL MCH 29.6 (27.0-33.0) pg MCHC 36.1 H (31.0-36.0) g/dl RDW 12.8 (11.0-16.0) % Plt Count 216 (160-400) X10*3/uL MPV 10.2 (9.4-12.4) fL Immature Gran % (Auto) 0.2 (0.0-0.4) % Neut % (Auto) 51.3 (45-73) % Lymph % (Auto) 36.3 (20-40) % [place] % (Auto) 8.8 (2-11) % Eos % (Auto) 2.3 (0-4) % Baso % (Auto) 1.1 (0-2) % Lymph # (Auto) 3.0 (1.2-4.9) X10*3/uL [place] # (Auto) 0.7 (0.1-1.2) X10*3/uL Eos # (Auto) 0.2 (0.0-0.4) X10*3/uL Baso # (Auto) 0.1 (0.0-0.2) X10*3/uL Abs Immat Gran (auto) 0.02 (0.00-0.03) X10*3/uL Absolute Neuts (auto) 4.3 (2.0-8.3) x10*3/uL Absolute Nucleated RBC 0.000 (0.0-0.012) X10*3/uL Nucleated RBC % (auto) 0.0 (0.0-0.2) /100WBC Sodium 139 (135-145) mmol/L Potassium 4.0 (3.3-5.1) mmol/L Chloride 108 (96-108) mmol/L Carbon Dioxide 24 (22-29) mmol/L Anion Gap 11 L (12-20) BUN 25 H (9-16) mg/dL Creatinine 1.30 (0.5-1.4) mg/dL Estim Creat Clear Calc 75.6 Estimated GFR 58 Random Glucose 131 H (60-115) mg/dL Calcium 9.6 (8.4-10.2) mg/dL Total Bilirubin 0.6 (0.0-1.0) mg/dL Direct Bilirubin 0.1 (0.0-0.5) mg/dL AST 34 (5-37) U/L ALT 53 H (0-40) U/L Alkaline Phosphatase 74 (39-117) U/L Troponin I High Sens 13.5 13.7 (<3.5-35.0) ng/L Total Protein 7.4 (6.5-8.0) g/dL Albumin 4.6 (3.5-5.0) g/dL Lipase 45 (8-78) U/L COVID-19 (REZA) Negative (Negative) COVID-19 Clin Com See Note Independent Interpretation I performed an independent interpretation of an: EKG (Normal sinus rhythm with a rate of 77 beats minute. The patient has marked ST abnormalities in the anterior lateral leads. However these changes are almost identical to his most recent EKG dated February 08, 2025 and even prior to that) Discharge Plan Discharge Clinical Impression: Atypical chest pain, Chest pain due to GERD Patient Disposition: Home, Self-Care Instructions: GERD (Gastroesophageal Reflux Disease) (ED), Noncardiac Chest Pain (ED) Additional Instructions: Thank you for choosing [facility]'s Emergency Department for your care today. Thankfully your laboratory evaluation, EKG, and exam today are reassuring. At this time there is no indication for admission to the hospital or continued ED observation, and it is safe to discharge you home. Your pain does not appear related to your heart, and based on his presentation may be related to inflammation of your stomach, a condition known as gastritis. Please take omeprazole daily and Pepcid twice a day for the next 2 weeks. Please read the attached information regarding foods which can cause worsening symptoms. Please follow up with your primary care physician for re-evaluation, additional management of your symptoms, and continued preventative care. If you do not have a primary care physician, please call the [facility] at [phone] to establish a new primary care physician. While waiting to establish your new primary care physician, you can call our Walk-in Care Clinic at [phone] for non-emergency needs. Please return to the emergency department if you develop a severe or sudden change in your symptoms, a fever over 100.4 that does not improve with Tylenol or Ibuprofen, recurrent vomiting, or any other new or worsening symptoms or concerns. Prescriptions: New famotidine [Pepcid] 20 mg tablet 20 mg PO BID Qty: 28 0RF omeprazole 20 mg capsule,delayed release(DR/EC) 20 mg PO DAILY Qty: 14 0RF No Action cholecalciferol (vitamin D3) 1,250 mcg (50,000 unit) capsule 1,250 mcg PO QWEEK 12 Days Qty: 12 0RF ibuprofen 800 mg tablet 800 mg PO Q8H PRN (Reason: pain) Qty: 14 0RF cyclobenzaprine 10 mg tablet 10 mg PO TID PRN (Reason: muscle spasm) Qty: 10 0RF Referrals: Handy Casillas III, MD [Primary Care Provider, Medical] Clinical Impression: Chest pain due to GERD; Atypical chest pain Print Language: Luxembourgish
[2025-02-17 01:59] LABS: Troponin-I High Sensitivity 13.5 ng/L (<3.5-35.0)
[2025-02-17] MEDS: Lidocaine HCl Viscous 2 % 15 ML SOLUTION MUCOUS MEM (02:17)
[2025-02-17] MEDS: Magnesium Hydrox/Alum Hydrox 30 ML ORAL.SUSP PO (02:17)
[2025-02-17 02:38] LABS: Alanine Aminotransferase 53 U/L (0-40); Albumin Level 4.6 g/dL (3.5-5.0); Alkaline Phosphatase 74 U/L (39-117); Anion Gap 11 (12-20); Aspartate Amino Transferase 34 U/L (5-37); Blood Urea Nitrogen 25 mg/dL (9-16); Calcium 9.6 mg/dL (8.4-10.2); Carbon Dioxide 24 mmol/L (22-29); Chloride 108 mmol/L (96-108); Creatinine Clr Calc Pharmacy 75.6; Estimated Glomerular Filt Rate 58; Lipase 45 U/L (8-78); Potassium 4.0 mmol/L (3.3-5.1); Sodium 139 mmol/L (135-145); Total Protein 7.4 g/dL (6.5-8.0)
[2025-02-17 03:30] LABS: Troponin-I High Sensitivity 13.7 ng/L (<3.5-35.0)
[2025-02-17 05:00] VITALS: BP 132/77; PULSE 60; RESP 18; TEMP 36.7; O2SAT 98
[2025-02-17 05:09] VITALS: BP 132/77; PULSE 60; RESP 18; TEMP 36.7; O2SAT 98
== END 2025-02-17 05:10 | disposition home or self-care (01) ==
PROVIDERS: Physician Assistant; Emergency Provider Emergency Medicine; PCP Internal Medicine
DX: R07.89 Other chest pain (principal); K21.9 Gastro-esophageal reflux disease without esophagitis; R94.31 Abnormal electrocardiogram [ECG] [EKG]; Z11.52 Encounter for screening for COVID-19; Z03.818 Encounter for observation for suspected exposure to other biological agents ruled out; Z79.899 Other long term (current) drug therapy
CPT/HCPCS: 36415; 80053; 82248; 83690; 84484; 85025; 87635; 93005; 96361; 96374; 99284; J2405

== ENCOUNTER → 2025-02-17 00:56 | Outpatient (BNV) | payer OTHER, SELFPAY | PROVIDERS: Emergency Provider Emergency Medicine; PCP Internal Medicine; Visit Provider Internal Medicine Cardiovascular Disease | DX: R94.31 Abnormal electrocardiogram [ECG] [EKG] (principal); R07.9 Chest pain, unspecified | CPT/HCPCS: 93010 ==

== ENCOUNTER → 2025-03-20 07:53 | Outpatient (REF) | payer OTHER, SELFPAY ==
--- NOTE | 2025-03-20 07:56 | CA_ITS ---
Transthoracic Echocardiogram Patient (Last, First, Middle): Madhav Bear, Gender: M Date of : 1975 Age: 49 Procedure Date: 03/20/2025 Procedure Type: Transthoracic Echocardiogram Location: OP Height: 172.72 cm Weight: 93.9 kg BSA: 2.07 m2 Heart Rate: bpm BP: 128 / 78 mmHg Machine Sewer: TO Referring MD: Karen ROGERS Safety Analyst: Julio C Samuels MD Symptoms: I42.1 - Obstructive hypertrophic cardiomyopathy Study Quality: Adequate w contrast ECG Rhythm: Sinus Conclusions: - 1. Normal LV ejection fraction of 60 65% with mild asymmetric septal as well as apical hypertrophy without clear obstructive physiology 2. Normal cardiac valvular Dopplers 3. Normal RV systolic pressure 4. No gross pericardial effusion Findings Procedure Information Contrast agent, definity, is being given per protocol without apparent complications. Left Ventricle Normal left ventricular size, thickness, and systolic function. The visually estimated ejection fraction is between 60-65%. There is no dynamic left ventricular outflow tract obstruction. Spectral Doppler is indicative of a normal filling pattern. There is mild septal and mild apical asymmetric hypertrophy. Right Ventricle Normal right ventricular cavity size and systolic function. Atria Both atria are normal in size. There is no evidence of interatrial shunt. Aortic Valve Normal aortic valve structure and function. There is no aortic valve stenosis. There is no aortic valve regurgitation. Mitral Valve Normal mitral valve structure and function. There is trace mitral valve regurgitation. There is no mitral valve stenosis. Tricuspid Valve Likely normal tricuspid valve structure and function. There is trace tricuspid valve regurgitation. The right ventricular systolic pressure is normal. The right ventricular systolic pressure is 25 mmHg. Normal right atrial pressure. There is no evidence of pulmonary hypertension. Great Vessels All visible segments of the aorta are normal in size. The pulmonary artery was not well visualized. There is no dilatation of the ascending aorta measuring 3.30 cm. Venous The inferior vena cava is normal in size and collapses greater than 50% with inspiration. Pericardium/Pleural There is no evidence of pericardial effusion. Prior Study Comparison No significant change compared to prior study dated: 12/09/2023. Measurements 2D Linear Measurements IVSd: 1.13 0.6-0.9/0.6-1.0 cm LVIDd: 4.57 3.9-5.3/4.2-5.9 cm LVIDd Index: 2.21 2.4-3.2/2.2-3.1 cm/m2 LVIDs: 2.89 2.0-3.6 cm LVPWd: 0.93 0.7-1.1 cm LV Mass: 203.83 67-162/88-224 g LV Mass Index: 98.47 43-95/49-115 g/m2 LVOT Diam: 2.00 3.0+(-)1.3 cm 2D Systolic Function EF 4C: 61.30 >55% EF 2C: 65.00 >55% EF BiP: 64.50 >55% Mitral Valve MV Pk E: 0.90 MV PK A: 0.66 MV Decel Time: 178.00 E/A: 1.40 E'Lateral: 10.30 E'Medial: 5.44 E/E' Med: 16.60 E/E' Lat: 8.80 PHT: 52.00 MVA PHT: 4.23 Decel [place]: 5.06 Aortic Valve AoV Pk Alfred[place]: 1.61 AoV Mn Alfredito: 1.06 AoV VTI: 0.31 AoV Pk Grad: 10.00 Aov Mn Grad: 5.00 PAMELLA Cont.VTI: 2.41 LVOT LVOT Pk Alfredito: 1.38 LVOT Mn Alfredito: 0.84 LVOT VTI: 0.23 LVOT Pk Grad: 8.00 LVOT Mn Grad: 3.00 LVOT Diam: 2.00 LVOT Area: 3.14 Diastolic Function MV Pk E: 0.90 MV Pk A: 0.66 E/A: 1.40 E'Medial: 5.44 E/E' Med: 16.60 E' Laterial: 10.30 E/E' Lat: 8.80 Right Ventricle TAPSE (mm): 21.70 TVS' Alfredito: 8.92 Tricuspid Valve TR Pk Alfredito: 2.33 TR Pk Grad: 22.00 RA Press: 3.00 RVSP: 25.00 Great Vessels Aorta Sinus of Valsalva: 3.36 2.0-3.5 cm Ao Asc: 3.30 2.1-3.4 cm Ao Arch: 2.60 Updated in Other Vendor System with Status of Final Julio C Samuels MD electronically signed on 03/20/2025 1:56:00 PM with status of Final
--- OUTSIDE RECORDS SUMMARY | 2025-03-20 07:59 | XMS_ITS | Clinical Summary ---
Author Organization [employer] Address [address] [place] [address] Care Team Providers Care Bridge Worker Apprentice Name Role Phone Unavailable Primary Care Provider [...] patient's age to complete this topic Insurance [facility] STANDARD
--- OUTSIDE RECORDS SUMMARY | 2025-03-20 07:59 | XMS_ITS | Clinical Summary ---
Author Organization [facility] Address [address] [place] [phone] Phone Care Team Providers Care Blood Bank Technician Name Role Phone Handy Casillas MD Primary [...] topic Medical Devices Not on file Insurance [address] [place], [place] [address] [facility] [employer] [facility] [employer] [employer] [facility] [employer] [facility] [employer] [facility]CO [facility] A[facility] Care Teams Blood Bank Technician Relationship Specialty Start Date End Date Handy Casillas MD [address] [place] [id number] PCP - General Internal Medicine 08/03/19 Additional Source Comments The information contained in this document represents components of the legal health record. It is not the complete legal health record.[facility]
--- OUTSIDE RECORDS SUMMARY | 2025-03-20 07:59 | XMS_ITS | Clinical Summary ---
Author Organization [facility] [address] [place] [address] [place] [phone] Phone Care Team Providers Care Dimpling Machine Operator Name Role Phone Handy Casillas MD Primary Care Provider [phone] Allergies Active Allergy Reactions Criticality Noted Date [...] Type 2 diabetes mellitus with obesity 11/17/2021 Overview (03/14/2025): 10/1/25 Regulatory IMO Update Elevated LFTs 11/20/2020 Obesity (BMI 30-39.9) 11/14/2018 Obstructive sleep apnea 05/24/2017 Overview (06/16/2024): UNTREATED (10/26/22) [facility] Home Polysomnogram: Date 05/20/2017; AHI 18, Unclassified apneas 0; Obstructive apneas 28; Central apneas 4; Mixed apneas 0; hypopneas 58; average oxygen saturation 95% (lowest 83% without saturations <88% for 5% or more of study) [facility] [place]ysomnogram treatment study. Date 12/28/2017. SE 52 % SM 78 %; spent 12 % of the study in REM. On CPAP @ 12; RDI 0 (AHI 0), Central apneas 0; Obstructive apneas 0; Mixed apneas 0; hypopneas 0; RERAs 0; and, average oxygen saturation was 95%. For the entire study, PLMs ~59. [facility] Home Sleep Study 10/22/2021. Weight 214#; BMI [...] PM EDT Hospital Encounter [facility] [address] [place] [phone] Chronic pain of right knee Discharge Disposition: Home or Self Care 02/14/2025 9:30 AM EDT - 02/14/2025 11:59 PM EDT Hospital Encounter [facility] [address], [place] [phone] Upper back pain Discharge Disposition: Home or Self Care 02/14/2025 9:00 AM EDT Office Visit Adult Medicine [address] [phone] Handy Casillas MD Routine physical examination (Primary Dx); Type 2 diabetes mellitus with obesity (CMS/HCC V24, CMS/HCC V28); Hypercholesterolemia ; Screening for malignant neoplasm of prostate; Encounter for long-term (current) use of medications; Chronic pain of right knee; Upper back pain; Benign prostatic hyperplasia with urinary hesitancy from Last 3 Months Immunizations Immunization Administration Dates Next Due Hepatitis B (Cbdakfm-W-Vulgq , Recombivax HB-Adult) 19yo and older 06/18/2010,03/05/2010,04/15/2009 [...] Surgery Date Site/Laterality Comments CHOLECYSTECTOMY 1999 PROCEDURE: CT LAPAROSCOPY SURG CHOLECYSTECTOMY TONSILLECTOMY 11/2019 PROCEDURE: HISTORICAL [...] apnea 05/24/2017 DX:Obstr uctive sleep apnea; COMMENT: [facility] Home Polysomnogram: Date 05/20/2017; AHI 18, Unclassified [...] your loved ones. For example, child care specialist or elderly care for an older adult? [...] Date Recorded What is your living situation? Unrecognized valu e 02/14/2025 Sex and Gender Information Value Date [...] Screening (Lipid Panel) 02/14/2030 02/14/2025, 10/12/2023, 10/12/2023 RSV Immunization Adult Patients (1 - 1-dose 75+ series) 2049 Hepatitis B Vaccines Completed 06/18/2010, 03/05/2010, 04/15/2009 [...] examination Type 2 diabetes mellitus with obesity ([facility] V24, [facility] V28) Encounter for long-term (current) use of medications MICROALBUMIN CREATININE URINE RATIO Routine 02/14/2025 10:16 AM EDT Routine physical examination PROSTATE SPECIFIC ANTIGEN SCREEN Routine 02/14/2025 10:16 AM EDT Screening for malignant neoplasm of prostate LIPID PANEL WITH REFLEX TO DIRECT LDL Routine 02/14/2025 10:16 AM EDT Hypercholesterolemi a HEMOGLOBIN A1C Routine 02/14/2025 10:16 AM EDT Type 2 diabetes mellitus with obesity ([facility] V24, [facility] V28) CBC AND DIFFERENTIAL Routine 02/14/2025 10:16 [...] LAB CHEMISTRY METHOD 02/14/2025 1:29 PM EDT [facility] Blood Venous blood specimen / Unknown Venipuncture / Unknown 02/14/2025 10:16 AM EDT 02/14/2025 10:16 AM EDT Narrative [facility] - 02/14/2025 1:29 PM EDT The Siemens Advia Centaur Chemiluminescent Immunoassay is used. Results obtained with different assay methods or kits cannot be used interchangeably. Results cannot be interpreted as absolute evidence of the presence or absence of malignant disease. us Handy Casillas MD LAB BLOOD ORDERABLES Final Resu lt [facility] [address] [place] [address], [place] [phone] * (ABNORMAL) Lipid panel with reflex to direct LDL (02/14/2025 10:16 AM EDT) Cholesterol 164 0 - 200 mg/dL LAB CHEMISTRY METHOD 02/14/2025 12:51 PM EDT [facility] Triglycerides 131 0 - 150 mg/dL LAB CHEMISTRY METHOD 02/14/2025 12:51 PM EDT [facility] HDL 34(L) >=40 mg/dL LAB CHEMISTRY METHOD 02/14/2025 12:51 PM EDT [facility] LDL Calculated 104(H) 0 - 100 mg/dL LAB CHEMISTRY METHOD 02/14/2025 12:51 PM EDT [facility] Comment:Estimated LDL Calcul ated using equation: Total cholesterol - HDL cholesterol - (Triglycerides/5) VLDL Cholesterol Adrien 26.2 mg/dL LAB CHEMISTRY METHOD 02/14/2025 12:51 PM EDT [facility] Non HDL Chol. (LDL+VLDL) 130 <145 mg/dL LAB CHEMISTRY METHOD 02/14/2025 12:51 PM EDT [facility] Chol/HDL Ratio 4.8(H) 0.0 - 4.4 LAB CHEMISTRY METHOD 02/14/2025 12:51 PM T [facility] Blood Venous blood specimen / Unknown Venipuncture / Unknown 02/14/2025 10:16 AM EDT 02/14/2025 10:16 AM EDT us Handy Casillas MD LAB BLOOD ORDERABLES Final Resu lt [facility] [address] [place] [address], * CBC auto differential (02/14/2025 10:16 AM EDT) WBC 6.3 4.8 - 10.8 K/mcL LAB HEMETOLOGY METHOD 02/14/2025 12:27 PM EDT [facility] RBC 5.30 4.50 - 5.50 M/mcL LAB HEMETOLOGY METHOD 02/14/2025 12:27 PM EDT [facility] Hemoglobin 15.5 13.5 - 17.5 g/dL LAB HEMETOLOGY METHOD 02/14/2025 12:27 PM EDT [facility] Hematocrit 45.5 42.0 - 54.0 % LAB HEMETOLOGY METHOD 02/14/2025 12:27 PM EDT [facility] MCV 85.8 79.0 - 98.0 FL LAB HEMETOLOGY METHOD 02/14/2025 12:27 PM EDT [facility] MCH 29.2 27.0 - 32.0 pcg LAB HEMETOLOGY METHOD 02/14/2025 12:27 PM EDT [facility] MCHC 34.1 32.0 - 37.0 g/dL LAB HEMETOLOGY METHOD 02/14/2025 12:27 PM EDT [facility] RDW 13.0 11.0 - 15.0 % LAB HEMETOLOGY METHOD 02/14/2025 12:27 PM EDT [facility] Platelets 225 130 - 400 K/mcL LAB HEMETOLOGY METHOD 02/14/2025 12:27 PM EDT [facility] MPV 10.7 7.0 - 11.0 FL LAB HEMETOLOGY METHOD 02/14/2025 12:27 PM EDT [facility] NRBC 0.0 <1.0 % LAB HEMETOLOGY METHOD 02/14/2025 12:27 PM [facility] NRBC Absolute 0.00 <0.10 K/mcL LAB HEMETOLOGY METHOD 02/14/2025 12:27 PM [facility] Neutrophils Relative 61.6 % LAB HEMETOLOGY METHOD 02/14/2025 12:27 PM [facility] Lymphocytes Relative 27.2 % LAB HEMETOLOGY METHOD 02/14/2025 12:27 PM [facility] Monocytes Relative 7.8 % LAB HEMETOLOGY METHOD 02/14/2025 12:27 PM [facility] Eosinophils Relative 2.1 % LAB HEMETOLOGY METHOD 02/14/2025 12:27 PM [facility] Basophils Relative 1.0 % LAB HEMETOLOGY METHOD 02/14/2025 12:27 PM [facility] Immature Granulocytes Relative 0.3 % LAB HEMETOLOGY METHOD 02/14/2025 12:27 PM [facility] Neutrophils Absolute 3.88 1.50 - 7.00 K/mcL LAB HEMETOLOGY METHOD 02/14/2025 12:27 PM [facility] Lymphocytes Absolute 1.71 1.00 - 5.00 K/mcL LAB HEMETOLOGY METHOD 02/14/2025 12:27 PM [facility] Monocytes Absolute 0.49 0.20 - 1.00 K/mcL LAB HEMETOLOGY METHOD 02/14/2025 12:27 PM [facility] Eosinophils Absolute 0.13 0.00 - 0.50 K/mcL LAB HEMETOLOGY METHOD 02/14/2025 12:27 PM [facility] Basophils Absolute 0.06 0.00 - 0.20 K/mcL LAB HEMETOLOGY METHOD 02/14/2025 12:27 PM EDT [facility] Immature Granulocytes Absolute 0.02 0.00 - 0.03 K/mcL LAB HEMETOLOGY METHOD 02/14/2025 12:27 PM EDT [facility] Blood Venous blood specimen / Unknown Venipuncture / Unknown 02/14/2025 10:16 AM EDT 02/14/2025 10:16 AM EDT us Handy Casillas MD LAB BLOOD ORDERABLES Final Resu lt [facility] [address] [place] [address], [place] [phone] * Microalbumin creatinine urine ratio (02/14/2025 10:16 AM EDT) Creatinine, Urine 245.0 mg/dL LAB CHEMISTRY METHOD 02/14/2025 2:14 PM EDT [facility] Microalb, Ur 26.6 0.0 - 29.0 mg/L LAB CHEMISTRY METHOD 02/14/2025 2:14 PM EDT [facility] Microalb/Creat Ratio 11 <30 mg/g creat LAB CHEMISTRY METHOD 02/14/2025 2:14 PM EDT [facility] Urine Urine specimen obtained by clean catch procedure / Unknown Non-blood Collection / Unknown 02/14/2025 10:16 AM EDT 02/14/2025 10:16 AM EDT us Handy aCsillas MD LAB URINE ORDERABLES Final Resu lt Performing Organization Address City/[facility]/ZIP Co de Phone Number [facility] [address] [place] [address], [place] [phone] * (ABNORMAL) Hemoglobin A1c (02/14/2025 10:16 AM EDT) Hemoglobin A1C 6.7(H) <6.5 % LAB CHEMISTRY METHOD 02/14/2025 2:27 PM T [facility] Mean Bld Glu Estim. 146 mg/dL LAB CHEMISTRY METHOD 02/14/2025 2:27 PM [facility] Blood Venous blood specimen / Unknown Venipuncture / Unknown 02/14/2025 10:16 AM EDT 02/14/2025 10:16 AM EDT us Handy Casillas MD LAB BLOOD ORDERABLES Final Resu lt [facility] [address] [place] [address], * (ABNORMAL) Comprehensive metabolic panel (02/14/2025 10:16 AM EDT) Sodium 139 133 - 145 mmol/L LAB CHEMISTRY METHOD 02/14/2025 12:51 PM [facility] Potassium 4.3 3.5 - 5.5 mmol/L LAB CHEMISTRY METHOD 02/14/2025 12:51 PM [facility] Chloride 104 96 - 110 mmol/L LAB CHEMISTRY METHOD 02/14/2025 12:51 PM [facility] CO2 32 21 - 32 mmol/L LAB CHEMISTRY METHOD 02/14/2025 12:51 PM [facility] Anion Gap 3 3 - 11 LAB CHEMISTRY METHOD 02/14/2025 12:51 PM [facility] Glucose 121(H) 70 - 100 mg/dL LAB CHEMISTRY METHOD 02/14/2025 12:51 PM [facility] BUN 14 5 - 25 mg/dL LAB CHEMISTRY METHOD 02/14/2025 12:51 PM [facility] Creatinine 1.17 0.70 - 1.30 mg/dL LAB CHEMISTRY METHOD 02/14/2025 12:51 PM [facility] eGFR 76 >=60 mL/min/1. 73m2 LAB CHEMISTRY METHOD 02/14/2025 12:51 PM T [facility] Comment:Calculation based on the Chronic Kidney Disease Epidemiology Collaboration (CKD-EPI) equation refit without adjustment for race. BUN/Creatinine Ratio 12.0 LAB CHEMISTRY METHOD 02/14/2025 12:51 PM [facility] Calcium 9.7 8.5 - 10.5 mg/dL LAB CHEMISTRY METHOD 02/14/2025 12:51 PM [facility] AST (SGOT) 29 10 - 42 unit/L LAB CHEMISTRY METHOD 02/14/2025 12:51 PM [facility] ALT (SGPT) 57 10 - 60 unit/L LAB CHEMISTRY METHOD 02/14/2025 12:51 PM [facility] Alkaline Phosphatase 83 42 - 121 unit/L LAB CHEMISTRY METHOD 02/14/2025 12:51 PM [facility] Total Protein 7.6 6.0 - 8.0 g/dL LAB CHEMISTRY METHOD 02/14/2025 12:51 PM [facility] Albumin 4.4 3.2 - 5.0 g/dL LAB CHEMISTRY METHOD 02/14/2025 12:51 PM [facility] Total Bilirubin 0.8 0.0 - 1.4 mg/dL LAB CHEMISTRY METHOD 02/14/2025 12:51 PM [facility] Blood Venous blood specimen / Unknown Venipuncture / Unknown 02/14/2025 10:16 AM EDT 02/14/2025 10:16 AM EDT us Handy Casillas MD LAB BLOOD ORDERABLES Final Resu lt [facility] [address] [place] [address], * XR Thoracic Spine 2 Views (02/14/2025 [...] Signed Date: 02/14/2025 16:59 ET Workstation ID: [id number] Transcribed By: Self Edit Transcribed Date: 02/14/2025 [...] Signed Date: 02/14/2025 16:59 ET Workstation ID: [id number] Transcribed By: Self Edit Transcribed Date: 02/14/2025 [...] Signed Date: 02/14/2025 16:58 ET Workstation ID: [id number] Transcribed By: Self Edit Transcribed Date: 02/14/2025 [...] Signed Date: 02/14/2025 16:58 ET Workstation ID: [id number] Transcribed By: Self Edit Transcribed Date: 02/14/2025 [...] Most Recently Relevant to Health Maintenance Insurance [facility] [place] [address] Care Teams Dimpling Machine Operator Relationship Specialty Start Date End Date Handy Casillas MD [address] [place] [phone] PCP - General Internal Medicine 10/10/13
== END ==
LOC: HO.CARD 07:53
PROVIDERS: PCP Internal Medicine; Visit Provider Nurse Practitioner Family
DX: I42.1 Obstructive hypertrophic cardiomyopathy (principal)
CPT/HCPCS: 93306; Q9957

== ENCOUNTER → 2025-03-20 07:56 | Outpatient (BNV) | payer OTHER, SELFPAY | PROVIDERS: PCP Internal Medicine; Visit Provider Internal Medicine Cardiovascular Disease | DX: I42.1 Obstructive hypertrophic cardiomyopathy (principal) | CPT/HCPCS: 93306 ==

== ENCOUNTER 2025-04-05 09:47 | Outpatient (AMB) | payer OTHER, SELFPAY ==
[2025-04-05 10:18] VITALS: BP 114/72; PULSE 67; BMI 32.5
--- NOTE | 2025-04-05 10:18 | MHC.OFFVIS ---
Vital Signs 04/05/25 10:18 Height 5 ft 8 in Weight 213 lb 13.574 oz BMI 32.5 BP 114/72 Blood Pressure Location Lt brachial Position Sitting Pulse 67 Pulse Source Pulse Oximeter Intake Visit Reasons: 6m follow up Insulation Extruder Operator Required: No Hospice Plan Administrator: Hospice Plan Administrator Present Allergies oxycodone (From PERCOCET) Allergy (Intermediate, Verified 04/05/25 10:24) Shortness of Breath Medication List - Last Reconciled 04/05/25 by Karen Ram NP-C atorvastatin 10 mg PO DAILY cholecalciferol (vitamin D3) 1,250 mcg PO QWEEK 12 days cyclobenzaprine 10 mg PO TID PRN famotidine (Pepcid) 20 mg PO BID ibuprofen 800 mg PO Q8H PRN omeprazole 20 mg PO DAILY HPI HPI 6m follow up: Details: Madhav is a 49 year-old male with past medical history of diabetes, mild obesity, abnormal EKG, untreated sleep apnea, hypertrophic cardiomyopathy who presents for follow-up after recent echocardiogram and ER evaluations for epigastric discomfort which was felt to be GI related. Today he reports that he does get some periodic burning in the epigastric region after eating certain foods and when laying down. He is taking Pepcid and omeprazole but adds that he does not like take medications and is not always consistent. No chest area discomfort brought on by physical activity. He will get some mild shortness of breath if he over exerts. Tells me he walks over a mile each day which he tolerates well. At times when he lays down in bed he will notice his heart beating fast, then it will settle down. He is not having any daytime palpitations. He did have dizziness reported at last ER visit but this has not been a consistent problem. No presyncope, syncope, falls. He is on disability due to chronic back issues. Significant other is present. [facility] Medical History (Updated 04/05/25 @ 11:32 by Karen Ram, DELIA-C) Abnormal EKG Atypical chest pain COVID-19 Headache Diabetes Cough Bilateral flank pain Myalgia Surgical History History of back surgery History of tonsillectomy History of cholecystectomy Family History Mother Brain cancer Father No problems noted. Social History Alcohol intake: never Patient Tobacco Use Status: Never used Tobacco Review of Systems Const All systems reviewed & are unremarkable except as noted in HPI and below ENT Denies dizziness Card Denies chest pain, Denies chest pain at rest, Denies chest pain with activity, Denies rapid heart rate, Denies pedal edema, Denies edema, Denies leg edema, Denies lightheadedness, Denies palpitations, Denies dyspnea, Denies dyspnea on exertion and Denies orthopnea Resp Denies cough, Denies dyspnea and Denies dyspnea on exertion GI Details: epigastric discomfort Denies hematochezia and Denies change in stool character Musc Denies abnormal gait, Denies limited range of motion, Denies muscle cramps, Denies muscle weakness, Denies numbness, Denies radiating pain into limb, Denies stiffness and Denies tingling Neuro Denies abnormal gait, Denies dizziness, Denies numbness and Denies tingling Endo Denies palpitations Physical Exam Vital Signs: Last Vital Signs Pulse 67 04/05/25 10:18 BP 114/72 04/05/25 10:18 BMI result Body Mass Index 32.5 Const General: cooperative, healthy appearing, comfortable and no acute distress Orientation/consciousness: patient oriented x3 Neck Neck: Yes normal visual inspection Resp Effort & Inspection: normal respiratory effort Auscultation: clear to auscultation bilaterally, no rales, no rhonchi and no wheezes Cardio Rate: regular rate Rhythm: regular rhythm Heart sounds: S1 normal heart sound present, S2 normal heart sound present, no gallops, no murmurs and no rubs Neuro General: patient oriented x3 Extrem General: Yes normal to inspection, No no pedal edema and No calf tenderness Psych Appearance: grossly normal Mental Status: mental status grossly normal Speech and movement: Normal speech and movement present Assessment & Plan Assessment & Plan (1) HOCM (hypertrophic obstructive cardiomyopathy): Code(s): I42.1 - Obstructive hypertrophic cardiomyopathy Category: Medical Plan: Echocardiogram done 04/02/2022 showed EF 64%, moderate asymmetrical septal hypertrophy, mid inferior lateral segments hypokinetic. An exercise stress test done 04/02/2022 showed good exercise tolerance, no EKG changes of ischemia and normal myocardial perfusion imaging. He then had a cardiac MRI at [facility] on 06/26/2022 showing basal septum thickened at 1.8 cm, mildly thickened apex, findings suggesting hypertrophic cardiomyopathy, mild narrowing of the LVOT demonstrating turbulent flow signal, EF 52%. A Holter monitor showed sinus rhythm with average heart rate 73, no significant arrhythmias. 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 Based on the above information he was not felt to have high risk findings. No medications were started. A repeat echocardiogram done 03/20/2025 showed EF 60-65%, mild asymmetric septal and apical hypertrophy without obstruction. He has no chest symptoms brought on by physical activity. Will check echo prior to next visit. Cardiology follow-up 6 months, sooner if needed. (2) Asymmetric septal hypertrophy: Code(s): I42.2 - Other hypertrophic cardiomyopathy Category: Medical Plan: As above (3) Abnormal EKG: Code(s): R94.31 - Abnormal electrocardiogram [ECG] [EKG] Category: Medical Plan: EKG with chronic T-wave inversions anteriorly. Nuclear stress test was done 04/02/2022 showing normal myocardial perfusion imaging, EF 63%. No anginal symptoms. EKG abnormality likely related to HOCM. No further testing needed at this time. (4) Epigastric discomfort: Code(s): R10.13 - Epigastric pain Category: Medical Plan: Reports of intermittent epigastric discomfort that feels like burning. Two recent ER evaluations each without new cardiac findings. His symptom was suspected to be GI related. He tells me he has a history of gastritis. His med list currently includes Pepcid and omeprazole. He admits to not taking meds consistently. Will forward this note to his PCP for review. Plan I discussed the results of his echocardiogram and reviewed his finding of cardiac muscle thickness. We discussed the importance of managing his epigastric discomfort with acid-reducing medication and avoiding trigger foods. We reviewed his palpitations and the need for continued monitoring, emphasizing that no cardiac events were identified during his ER visits. I advised regular follow-up for his stable muscle hypertrophy of the heart and discussed the importance of medication use. Patient Instructions: - Avoid foods that worsen your epigastric discomfort, such as spicy and acidic foods. - Follow up with Dr. Dionisio Casillas for management of your gastritis and potential increase in acid-reducing medication. - Monitor for any cardiac symptoms - chest discomfort, increasing sob or lightheadedness with ambulation - Cardiology follow up in 6 mo Patient was informed and verbally consented to the use of an ambient scribe for clinic note documentation during this visit. Visit time spent on chart review, interview, assessment, orders, documentation. Coding Level of Care Code Est Pt Level 4 (76701) Complex EM visit Add On G2211 Diagnoses HOCM (hypertrophic obstructive cardiomyopathy) I42.1 Asymmetric septal hypertrophy I42.2 Abnormal EKG R94.31 Epigastric discomfort R10.13 Time Spent (min) 32
--- OUTSIDE RECORDS SUMMARY | 2025-04-05 11:10 | XMS_ITS | Clinical Summary ---
Author Organization [facility] Address [address] [place] [phone] Phone Care Team Providers Care Manager Social Work Name Role Phone Handy Casillas MD Primary [...] 03/31/2013, Additional history exists COVID-19 VACCINE ( - 2024- season) 2025 Adult Td,Tdap Booster 03/24/2027 03/24/2017, 008 LIPID PANEL 10/11/2028 10/12/2023 RSV VACCINE (1 - 1-dose 75+ series) 2049 HEPATITIS A VACCINES Aged Out No long [...] topic Medical Devices Not on file Insurance [employer] [address] [place] [address] ACO [facility] [employer] [facility] [employer] [facility] [employer] [facility] [facility] Care Teams Manager Social Work Relationship Specialty Start Date End Date Handy Casillas MD [address] [place] [phone] PCP - General Internal Medicine 08/03/19 Additional Source Comments The information contained in this document represents components of the legal health record. It is not the complete legal health record.[facility]
--- OUTSIDE RECORDS SUMMARY | 2025-04-05 11:10 | XMS_ITS | Clinical Summary ---
Author Organization [facility] [address] [place] [address] [place] [phone] Phone Care Team Providers Care Broomcorn Seeder Name Role Phone Handy Casillas MD Primary Care Provider [phone] Allergies Active Allergy Reactions Criticality Noted Date [...] sleep apnea 05/24/2017 Overview (06/16/2024): UNTREATED (10/26/22) [facility] Home Polysomnogram: Date 05/20/2017; AHI 18, Unclassified apneas 0; Obstructive apneas 28; Central apneas 4; Mixed apneas 0; hypopneas 58; average oxygen saturation 95% (lowest 83% without saturations <88% for 5% or more of study) [facility] [place]ysomn[place] treatment study. Date 12/28/2017. SE 52 % SM 78 %; spent 12 % of the study in REM. On CPAP @ 12; RDI 0 (AHI 0), Central apneas 0; Obstructive apneas 0; Mixed apneas 0; hypopneas 0; RERAs 0; and, average oxygen saturation was 95%. For the entire study, PLMs ~59. [facility] Home Sleep Study 10/22/2021. Weight 214#; [...] PM EDT Hospital Encounter [facility] [address] [place] [phone] Chronic pain of right knee Discharge Disposition: Home or Self Care 02/14/2025 9:30 AM EDT - 02/14/2025 11:59 PM EDT Hospital Encounter [facility] [address] [place], [place] [phone] Upper back pain Discharge Disposition: Home or Self Care 02/14/2025 9:00 AM EDT Office Visit Adult Medicine [address] [phone] Handy Casillas MD Routine physical examination (Primary Dx); Type 2 diabetes mellitus with obesity (CMS/HCC V24, CMS/HCC V28); Hypercholesterolemia ; Screening for malignant neoplasm of prostate; Encounter for long-term (current) use of medications; Chronic pain of right knee; Upper back pain; Benign prostatic hyperplasia with urinary hesitancy from Last 3 Months Immunizations Immunization Administration Dates Next Due Hepatitis B (Byahwes-Z-Woskr , Recombivax HB-Adult) 19yo and older 06/18/2010,03/05/2010,04/15/2009 [...] Surgery Date Site/Laterality Comments CHOLECYSTECTOMY 1999 PROCEDURE: CO LAPAROSCOPY SURG CHOLECYSTECTOMY TONSILLECTOMY 11/2019 PROCEDURE: HISTORICAL [...] apnea 05/24/2017 DX:Obstr uctive sleep apnea; COMMENT: [facility] Home Polysomnogram: Date 05/20/2017; AHI 18, [...] your loved ones. For example, child care center assistant director or elderly care for an older adult? [...] examination Type 2 diabetes mellitus with obesity ([facility] V24, [facility] V28) Encounter for long-term (current) use of medications MICROALBUMIN CREATININE URINE RATIO Routine 02/14/2025 10:16 AM EDT Routine physical examination PROSTATE SPECIFIC ANTIGEN SCREEN Routine 02/14/2025 10:16 AM EDT Screening for malignant neoplasm of prostate LIPID PANEL WITH REFLEX TO DIRECT LDL Routine 02/14/2025 10:16 AM EDT Hypercholesterolemi a HEMOGLOBIN A1C Routine 02/14/2025 10:16 AM EDT Type 2 diabetes mellitus with obesity ([facility] V24, [facility] V28) CBC AND DIFFERENTIAL Routine 02/14/2025 10:16 [...] LAB CHEMISTRY METHOD 02/14/2025 1:29 PM EDT [facility] Blood Venous blood specimen / Unknown Venipuncture / Unknown 02/14/2025 10:16 AM EDT 02/14/2025 10:16 AM EDT Narrative [facility] - 02/14/2025 1:29 PM EDT The Siemens Advia Centaur Chemiluminescent Immunoassay is used. Results obtained with different assay methods or kits cannot be used interchangeably. Results cannot be interpreted as absolute evidence of the presence or absence of malignant disease. us Handy Casillas MD LAB BLOOD ORDERABLES Final Resu lt [facility] [address] [place] [address], [place] [phone] * (ABNORMAL) Lipid panel with reflex to direct LDL (02/14/2025 10:16 AM EDT) Cholesterol 164 0 - 200 mg/dL LAB CHEMISTRY METHOD 02/14/2025 12:51 PM EDT [facility] Triglycerides 131 0 - 150 mg/dL LAB CHEMISTRY METHOD 02/14/2025 12:51 PM EDT [facility] HDL 34(L) >=40 mg/dL LAB CHEMISTRY METHOD 02/14/2025 12:51 PM EDT [facility] LDL Calculated 104(H) 0 - 100 mg/dL LAB CHEMISTRY METHOD 02/14/2025 12:51 PM EDT [facility] Comment:Estimated LDL Calcul ated using equation: Total cholesterol - HDL cholesterol - (Triglycerides/5) VLDL Cholesterol Adrien 26.2 mg/dL LAB CHEMISTRY METHOD 02/14/2025 12:51 PM EDT [facility] Non HDL Chol. (LDL+VLDL) 130 <145 mg/dL LAB CHEMISTRY METHOD 02/14/2025 12:51 PM EDT [facility] Chol/HDL Ratio 4.8(H) 0.0 - 4.4 LAB CHEMISTRY METHOD 02/14/2025 12:51 PM T [facility] Blood Venous blood specimen / Unknown Venipuncture / Unknown 02/14/2025 10:16 AM EDT 02/14/2025 10:16 AM EDT us Handy Casillas MD LAB BLOOD ORDERABLES Final Resu lt [facility] [address] [place] [address], * CBC auto differential (02/14/2025 10:16 AM EDT) WBC 6.3 4.8 - 10.8 K/mcL LAB HEMETOLOGY METHOD 02/14/2025 12:27 PM EDT [facility] RBC 5.30 4.50 - 5.50 M/mcL LAB HEMETOLOGY METHOD 02/14/2025 12:27 PM EDT [facility] Hemoglobin 15.5 13.5 - 17.5 g/dL LAB HEMETOLOGY METHOD 02/14/2025 12:27 PM EDT [facility] Hematocrit 45.5 42.0 - 54.0 % LAB HEMETOLOGY METHOD 02/14/2025 12:27 PM EDT [facility] MCV 85.8 79.0 - 98.0 FL LAB HEMETOLOGY METHOD 02/14/2025 12:27 PM EDT [facility] MCH 29.2 27.0 - 32.0 pcg LAB HEMETOLOGY METHOD 02/14/2025 12:27 PM EDT [facility] MCHC 34.1 32.0 - 37.0 g/dL LAB HEMETOLOGY METHOD 02/14/2025 12:27 PM EDT [facility] RDW 13.0 11.0 - 15.0 % LAB HEMETOLOGY METHOD 02/14/2025 12:27 PM EDT [facility] Platelets 225 130 - 400 K/mcL LAB HEMETOLOGY METHOD 02/14/2025 12:27 PM EDT [facility] MPV 10.7 7.0 - 11.0 FL LAB HEMETOLOGY METHOD 02/14/2025 12:27 PM EDT [facility] NRBC 0.0 <1.0 % [...] LAB HEMETOLOGY METHOD 02/14/2025 12:27 PM EDT [facility] Immature Granulocytes Absolute 0.02 0.00 - 0.03 K/mcL LAB HEMETOLOGY METHOD 02/14/2025 12:27 PM EDT [facility] Blood Venous blood specimen / Unknown Venipuncture / Unknown 02/14/2025 10:16 AM EDT 02/14/2025 10:16 AM EDT us Handy Casillas MD LAB BLOOD ORDERABLES Final Resu lt [facility] [address] [place] [address], [place] [phone] * Microalbumin creatinine urine ratio (02/14/2025 10:16 AM EDT) Creatinine, Urine 245.0 mg/dL LAB CHEMISTRY METHOD 02/14/2025 2:14 PM EDT [facility] Microalb, Ur 26.6 0.0 - 29.0 mg/L LAB CHEMISTRY METHOD 02/14/2025 2:14 PM EDT [facility] Microalb/Creat Ratio 11 <30 mg/g creat LAB CHEMISTRY METHOD 02/14/2025 2:14 PM EDT [facility] Urine Urine specimen obtained by clean catch procedure / Unknown Non-blood Collection / Unknown 02/14/2025 10:16 AM EDT 02/14/2025 10:16 AM EDT us Handy Casillas MD LAB URINE ORDERABLES Final Resu lt Performing Organization Address City/[facility]/ZIP Co de Phone Number [facility] [address] [place] [address], [place] [phone] * (ABNORMAL) Hemoglobin A1c (02/14/2025 10:16 AM EDT) Hemoglobin A1C 6.7(H) <6.5 % LAB CHEMISTRY METHOD 02/14/2025 2:27 PM T [facility] Mean Bld Glu Estim. 146 mg/dL LAB CHEMISTRY METHOD 02/14/2025 2:27 PM [facility] Blood Venous blood specimen / Unknown Venipuncture / Unknown 02/14/2025 10:16 AM EDT 02/14/2025 10:16 AM EDT us Handy Casillas MD LAB BLOOD ORDERABLES Final Resu lt [facility] [address] [place] [address], * (ABNORMAL) Comprehensive metabolic panel (02/14/2025 10:16 [...] LAB CHEMISTRY METHOD 02/14/2025 12:51 PM T [facility] Comment:Calculation based on the Chronic Kidney Disease Epidemiology Collaboration (CKD-EPI) equation refit without adjustment for race. BUN/Creatinine Ratio 12.0 LAB CHEMISTRY METHOD 02/14/2025 12:51 PM [facility] Calcium 9.7 8.5 - 10.5 mg/dL LAB CHEMISTRY METHOD 02/14/2025 12:51 PM [facility] AST (SGOT) 29 10 - 42 unit/L LAB CHEMISTRY METHOD 02/14/2025 12:51 PM [facility] ALT (SGPT) 57 10 - 60 unit/L LAB CHEMISTRY METHOD 02/14/2025 12:51 PM [facility] Alkaline Phosphatase 83 42 - 121 unit/L LAB CHEMISTRY METHOD 02/14/2025 12:51 PM [facility] Total Protein 7.6 6.0 - 8.0 g/dL LAB CHEMISTRY METHOD 02/14/2025 12:51 PM [facility] Albumin 4.4 3.2 - [...] MD LAB BLOOD ORDERABLES Final Resu lt [facility] [address] [place] [address], * XR Thoracic Spine 2 Views (02/14/2025 [...] Signed Date: 02/14/2025 16:59 ET Workstation ID: [id number] Transcribed By: Self Edit Transcribed Date: 02/14/2025 [...] Signed Date: 02/14/2025 16:59 ET Workstation ID: [id number] Transcribed By: Self Edit Transcribed Date: 02/14/2025 [...] Signed Date: 02/14/2025 16:58 ET Workstation ID: [id number] Transcribed By: Self Edit Transcribed Date: 02/14/2025 [...] Signed Date: 02/14/2025 16:58 ET Workstation ID: [id number] Transcribed By: Self Edit Transcribed Date: 02/14/2025 [...] Most Recently Relevant to Health Maintenance Insurance [facility] [employer] Care Teams Broomcorn Seeder Relationship Specialty Start Date End Date Handy Casillas MD [address] [place] [phone] PCP - General Internal Medicine 10/10/13"
--- OUTSIDE RECORDS SUMMARY | 2025-04-05 11:10 | XMS_ITS | Clinical Summary ---
Author Organization [employer] Address [address] [place] [address] Care Team Providers Care Truck Driver Supervisor Name Role Phone Unavailable Primary Care Provider [...] patient's age to complete this topic Insurance [facility] STANDARD
== END 2025-04-05 10:56 | disposition home or self-care (01) ==
LOC: HO.HCS 09:47
PROVIDERS: Visit Provider Nurse Practitioner Family
DX: I42.1 Obstructive hypertrophic cardiomyopathy (principal); I42.2 Other hypertrophic cardiomyopathy; R94.31 Abnormal electrocardiogram [ECG] [EKG]; R10.13 Epigastric pain
CPT/HCPCS: 99214

== ENCOUNTER → 2025-04-05 09:47 | Outpatient (BNVA) | payer OTHER, SELFPAY | PROVIDERS: Visit Provider Nurse Practitioner Family | DX: I42.1 Obstructive hypertrophic cardiomyopathy (principal); R94.31 Abnormal electrocardiogram [ECG] [EKG]; R10.13 Epigastric pain; R00.2 Palpitations | CPT/HCPCS: 99212 ==